=== PATIENT | male | born 1950 | race Caucasian/White ===

== ENCOUNTER → 2021-10-04 | Outpatient (CLI) | payer OTHER, MEDICARE | END | disposition home or self-care (01) | LOC: LABPAT 09:05 | PROVIDERS: ATTEND Orthopaedic Surgery | DX: Z01.812 Encounter for preprocedural laboratory examination (principal); Z22.322 Carrier or suspected carrier of Methicillin resistant Staphylococcus aureus; M16.11 Unilateral primary osteoarthritis, right hip | CPT/HCPCS: 87070 ==

== ENCOUNTER 2021-10-12 06:09 | Day surgery (SDC) | payer OTHER, MEDICARE ==
--- NOTE | 2021-10-11 09:19 | P.HPOR ---
History of Present Illness H&P Date: 10/11/21 Chief Complaint: Right hip pain The patient is a 71-year-old retired male who presents with progressive right hip pain for the past 5 years. It's worsened recently. He notes anterior thigh and groin pain worse with walking. He notes his leg gives out on him. He is having night symptoms. He does use a cane. He has tried medications without much relief. Review of Systems As per HPI Past Medical History Past Medical History: Cancer, COPD, Diabetes Mellitus, GERD/Reflux, Hyperlipidemia, Hypertension, Osteoarthritis (OA), Thyroid Disorder Additional Past Medical History / Comment(s): Hx. CLL per PCP clearance-not shared by pt. History of Any Multi-Drug Resistant Organisms: None Reported Past Surgical History: Hernia Repair Additional Past Surgical History / Comment(s): abd. aortic aneurysm repair 1999, inguinal hernia repair, nichelle cataracts removed, lung bx. Past Anesthesia/Blood Transfusion Reactions: No Reported Reaction Smoking Status: Former smoker - Past Family History Mother Family Medical History: No Reported History Medications and Allergies Home Medications Medication Instructions Recorded Confirmed Type Albuterol Inhaler [Ventolin Hfa 1 - 2 puff INHALATION RT-Q6H PRN 10/06/21 10/06/21 History Inhaler] Cholecalciferol [Vitamin D3 (25 25 mcg PO DAILY 10/06/21 10/06/21 History Mcg = 1000 Iu)] Ferrous Sulfate [Feosol] 325 mg PO DAILY 10/06/21 10/06/21 History Garlic 500 mg PO TID 10/06/21 10/06/21 History Levothyroxine Sodium [Synthroid] 25 mcg PO DAILY 10/06/21 10/06/21 History Pantoprazole [Protonix] 40 mg PO BID 10/06/21 10/06/21 History Pravastatin Sodium 80 mg PO DAILY 10/06/21 10/06/21 History Testosterone [Androderm 2 mg Patch] 1 patch TRANSDERM Q24H 10/06/21 10/06/21 History Ubidecarenone [Co Q-10] 100 mg PO DAILY 10/06/21 10/06/21 History amLODIPine [Norvasc] 5 mg PO HS 10/06/21 10/06/21 History lisinopriL [Zestril] 20 mg PO BID 10/06/21 10/06/21 History Aspirin 81 mg PO DAILY 10/07/21 10/07/21 History Insulin Glargine [Lantus Vial] 25 unit SQ QAM 10/07/21 10/08/21 History Allergies Allergy/AdvReac Type Severity Reaction Status Date / Time codeine AdvReac Nausea & Verified 10/06/21 15:29 Vomiting Physical Examination - Hip right Gait: antalgic Tenderness with palpation: anterior Pain with motion: internal rotation and hip flexion ROM: extension: 0 degrees ROM: flexion: 80 degrees Tests: impingement tests: positive Results The patient is a well-developed well-nourished male proximal 5 foot 5, 180 pounds. He is of mesomorphic habitus. HEENT exam is nonfocal, neck is supple. His distal neurovascular exam appears intact right lower extremity. - Diagnostic results Hip x-ray: image reviewed (Right hip 2 views obtained in the office show severe osteoarthrosis with [id number] changes. Vascular calcifications are present.) Assessment and Plan Assessment: Right hip severe osteoarthrosis Peripheral vascular disease Plan: I talked with patient regarding his condition along with treatment options. At this point is quite symptomatic and limited because of pain related to his osteoarthritis despite conservative measures. After thorough discussion he opts to proceed with surgery. We'll plan to proceed with right total hip arthroplasty utilizing a lateral approach. Risks and benefits are discussed at length in layman's terms. Time with Patient: Greater than 30
[~2021-10-12 06:09] MED LIST: ACETAMINOPHEN TAB 500 MG TAB PO PRN; DEXAMETHASONE SOD PHOSPHATE 4 MG/ML 1 ML VIAL IV ONE; MELOXICAM 7.5 MG TAB PO PRN; ONDANSETRON 4 MG/2 ML VIAL IVP ONE; TRANEXAMIC ACID IN NACL,ISO-OS 1,000 MG in SALINE 1 100ML.BAG IVPB PRN
[2021-10-12] MEDS: LACTATED RINGERS 1,000 ML IV SCH (06:34)
[2021-10-12] MEDS ORDERED: HYDROmorphone 0.5 MG/0.5 ML SYRINGE IVP PRN ×3 (07:00→09:19)
[2021-10-12 07:01] LABS: Glucose,Whole Blood 93 mg/dL (70-110)
[2021-10-12] MEDS ORDERED: MIDAZOLAM 2 MG/2 ML VIAL IVP ONE (07:11)
[2021-10-12] MEDS ORDERED: fentaNYL (PF) 50 MCG/ML 2 ML AMP IVP ONE (07:11)
[2021-10-12] MEDS ORDERED: TRANEXAMIC ACID IN NACL,ISO-OS 1,000 MG/100 ML BAG ONE (07:40)
[2021-10-12] MEDS ORDERED: fentaNYL (PF) 50 MCG/ML 2 ML AMP ONE (07:40)
[2021-10-12] MEDS ORDERED: PHENYLEPHRINE-0.9% NACL SYG 1,000 MCG/10 ML SYRINGE ONE (07:40)
[2021-10-12] MEDS ORDERED: ePHEDrine 50 MG/ML 1 ML VIAL ONE (07:40)
[2021-10-12] MEDS ORDERED: PROPOFOL 10 MG/ML 20 ML VIAL IV ONE (07:40)
[2021-10-12] MEDS ORDERED: MIDAZOLAM 2 MG/2 ML VIAL ONE (07:40)
[2021-10-12] MEDS ORDERED: HYDROcodone/APAP 5-325MG 1 EACH TAB PO PRN (09:19)
[2021-10-12] MEDS ORDERED: NALOXONE 0.4 MG/ML 1 ML VIAL IV PRN (09:19)
--- NOTE | 2021-10-12 09:21 | P.ANPRN ---
Procedure Note - Anesthesia - Nerve Block Performed Right Erector Spinae Single Time Out Performed: Yes (0710) Date of Procedure: 10/12/21 Procedure Start Time: 07:11 Procedure Stop Time: :16 Location of Patient: PreOp Indication: Acute Post-Operative Pain, Requested by Surgeon Specifically requested for management of pain by : Agusto Frausto Sedation Type: Sedate with meaningful contact maintained Preparation: Sterile Prep Position: Supine Catheter: None Needle Types: Pajunk Needle Gauge: 21 Ultrasound used to visualize needle placement: Yes Ultrasound used to observe medication spread: Yes Injectate: 0.5% Ropivacaine (see comment for volume) (30cc) Blood Aspirated: No Pain Paresthesia on Injection Noted: No Resistance on Injection: Normal Image Stored and Saved: Yes Events: Uneventful and Well Tolerated
--- NOTE | 2021-10-12 09:35 | P.OP ---
Date of Procedure: 10/12/21 Preoperative Diagnosis: Right hip severe osteoarthrosis Postoperative Diagnosis: Same Procedure(s) Performed: Right total hip path Placidepress-fitlateral approach Implants: Depuy [place] size 11 collared 125/high offset press-fit femoral stem, 36+5 cobalt chrome femoral head, 54 mm [place] acetabular shell with neutral polyethylene liner. Anesthesia: spinal Surgeon: Agusto Frausto Roof Technician #1: Sergio Keys Estimated Blood Loss (ml): 150 Pathology: other (Femoral head) Condition: stable Disposition: PACU Indications for Procedure: The patient's a 71-year-old male who presents with progressive right hip pain secondary to osteoarthrosis despite conservative measures. A discussion of the risks and benefits of operative intervention versus continued conservative measures was made with patient. He opted to proceed with surgery. Operative risks to include infection, neurovascular injury, development of blood clots, possible ligamentous, possible fracture, possible instability need for subsequent procedures was discussed. Informed consent was obtained. Operative Findings: As below Description of Procedure: The patient was brought to the operating room, and after induction of spinal anesthesia was placed in a lateral decubitus position. The bony prominences were appropriately padded. The pelvis was stable perpendicular to the floor with a pegboard. The right lower extremity was prepped and draped in normal fashion. A 12 cm incision was then made centered over the greater trochanter extending superiorly to level the ASIS and distally in line with the femoral shaft. The skin and subcutaneous tissues were divided sharply. Electrocautery was used for hemostasis. The fascia qasim and gluteus michael fascia was split in line with the skin incision. The muscle fibers were bluntly dissected proximally. A self-retaining retractor was placed. The anterior and posterior margins of the gluteus medius muscles identified and the anterior two thirds was detached from the greater trochanter with electrocautery. The gluteus minimus tendon was identified and detached in a similar fashion. A wide capsulotomy was performed. The femoral neck fracture was identified in the lower neck cut was made approximately 1 1/2 cm above the level of the lesser trochanter with a sagittal saw at a 45 the shaft. The head was then extracted with a corkscrew. Attention was then paid towards preparing the acetabular. Anterior and posterior retractors were placed. The remaining capsular labral tissues debrided sharply clearly defining the acetabular margins. I began reaming with a 47 mm reamer taking care to initially medialize, then reaming at 45 of abduction and 20 of anteversion. Sequential reaming is performed up to 53 mm. This was down to bleeding bony surface. A trial 54 mm acetabular shell was inserted at 45 of abduction and 20 of anteversion. This was fully seated. There was good rim fit and stability. A neutral polyethylene liner was then impacted. Care taken to avoid any soft tissue interposition. Attention was then paid towards preparing the proximal femur. A box chisel was used to open the metaphyseal region. A canal finder was used to find the femoral canal. Sequential broaching was performed up to a size 11. This is placed in 15 of anteversion with the leg perpendicular floor judging off the trans-epicondylar axis. There is good rotational stability. A calcar mill was used to fashion the medial calcar. A trial 125 high offset neck along with a 36 mm + 5 trial head was placed. The hip was gently reduced. It was taken through range of motion. I felt to be stable in flexion and extension with internal and external rotation. I felt there was adequate quaker of soft tissue tension. The hip was gently dislocated. The trial components removed. Pulsatile lavage was utilized. The final size 11 high offset 125 collared femoral stem was inserted again with the leg perpendicular to the floor in 15 of anteversion. Again there was good rotational stability. A 36 mm + 5 cobalt chrome femoral head was gently impacted. The hip was gently reduced. Again it was taken through motion and felt to be stable in flexion and extension with internal and external rotation. Pulsatile lavage was again utilized. With the leg in abduction the gluteus minimus and medius tendons reattached to the greater trochanter with #2 Ethibond suture. There was minimal drainage therefore a deep drain was not placed. The fascia qasim and gluteus michael fascia was closed with #2 Ethibond suture. The subcutaneous tissues were reapproximated interrupted 2-0 Vicryl sutures. The skin was reapproximated with 3-0 subcuticular strata fix suture. Skin tape and adhesive was applied. A sterile dressing was applied. The patient was awoken from sedation and transferred to recovery room in good condition. Blood loss was estimated 150 mL. No complications were incurred. Sponge and needle counts were correct in the case. Sergio FLORES assisted during the major composes case to include exposure, implantation, and closure.
[2021-10-12 09:47] LABS: Glucose,Whole Blood 114 mg/dL (70-110)
--- NOTE | 2021-10-12 09:57 | XR ---
EXAMINATION TYPE: XR Hip Limited RT DATE OF EXAM: 10/12/2021 9:51 AM INDICATION: Patient age:Male; 71 years old; Reason for study: Status post hip surgery, assess surgical alignment; COMPARISON: Pelvis radiograph 08/23/2021 TECHNIQUE: The right hip was examined in the frontal view. FINDINGS: Post arthroplasty changes, hardware is intact, alignment is appropriate. No evidence of fra cture. Postoperative changes soft tissue. No evidence of any acute osseous pathology or joint disloca tion. Atherosclerosis of the vasculature. Hernia repair anchors noted in the left pelvis over the sup erior pubic ramus. IMPRESSION: Total hip arthroplasty with hardware intact and in appropriate alignment. No acute fracture.
[2021-10-12] MEDS: HYDROcodone/APAP 7.5-325MG 1 EACH TAB PO PRN ×3 (14:11→23:07)
[2021-10-12] MEDS ORDERED: ALBUTEROL NEBULIZED 2.5 MG/3 ML INHALATION PRN (14:27)
[2021-10-12] MEDS: TESTOSTERONE TRANSDERM SCH (15:46)
--- NOTE | 2021-10-12 16:12 | P.CONS ---
History of Present Illness - Reason for Consult Consult date: 10/12/21 Medical Management - History of Present Illness History of Presenting Illness: Patient is a very pleasant 71-year-old male with a past medical history of hypertension, hyperlipidemia, hypothyroidism, insulin-dependent diabetes mellitus and osteoarthrosis. Patient is status post right total hip arthroplasty secondary to severe right hip osteoarthrosis. Surgical procedure completed by Dr. Morrison. We have been consulted for medical management throughout hospitalization. Patient seen and fully evaluated. Patient sitting up in chair and reports that he has been ambulating in room with walker. Patient reports controlled postsurgical pain to right hip currently rating 4 out of 10 at this time and denies having any numbness, decreased sensation, or weakness in right lower extremity. Patient denies having any postoperative nausea or vomiting and reports he has been urinating without any difficulties. Patient denies having any history of CVA, DVT or PE. Patient denies having any current complaints including headache, lightheadedness, dizziness, chest pain, palpitations, shortness of breath, or experiencing any numbness/tingling/weakness in his extremities. Review of systems: Pertinent positives and negatives as discussed in HPI, a complete review of systems was performed and all other systems are negative. Physical exam: Vital signs reviewed and stable. General: Nontoxic, no distress and appears stated age. Derm: Skin warm and dry, normal coloration for ethnicity. Head: Atraumatic, normocephalic and symmetric. Eyes: EOMs intact, no lid lag, and anicteric sclera Mouth: no lip lesions, mucus membranes moist Cardiovascular: regular rate and rhythm with normal S1S2, no murmur, positive posterior tibial pulses bilaterally, and cap refill < 2 seconds. Lungs: Respirations even, regular, and unlabored on room air. Lungs CTA bilaterally, no rhonchi, no rales, no wheezing, and no accessory muscle usage. Abdominal: soft, nontender to palpation, no guarding, no appreciable organomegaly Ext: ROM intact. No gross muscle atrophy, no edema, no contractures Neuro: Speech clear, face symmetrical and CN II-XII grossly intact with no noted focal neuro deficits Psych: Alert and oriented to person, place, time, and situation. Appropriate and pleasant affect. Assessment and Plan of Care: Severe right hip osteoarthrosis Status post right total hip arthroplasty -Management per primary admitting orthopedic surgery team including DVT prophylaxis, pain management, wound care, weightbearing, and PT/OT. -Currently patient on DVT prophylaxis with Xarelto. -Encourage use of incentive spirometry 10-15 times hourly while awake. Hypertension -Monitor vital signs and continue daily medication regimen with lisinopril and amlodipine. Insulin dependent diabetes mellitus -Continue long-acting Lantus 25 units each morning and place patient on glycemic protocol with NovoLog sliding scale. Hypothyroidism -Continue daily medication regimen with levothyroxine 25 g each morning. Hyperlipidemia -Continue daily medication regimen with pravastatin. Thank you for allowing us to participate in the care of this pleasant patient. Do not hesitate to contact us with questions. Someone can be reached from the [facility] hospitalist group all hours of the day at [phone] or via [employer]. I reviewed the documentation as provided by the CURT above, who is the original author of this note. I agree with the documented assessment and plan, with the following changes: none Past Medical History Past Medical History: Cancer, COPD, Diabetes Mellitus, GERD/Reflux, Hyperlipidemia, Hypertension, Osteoarthritis (OA), Thyroid Disorder Additional Past Medical History / Comment(s): Hx. CLL per PCP clearance-not shared by pt. History of Any Multi-Drug Resistant Organisms: None Reported Past Surgical History: Hernia Repair Additional Past Surgical History / Comment(s): abd. aortic aneurysm repair 1999, inguinal hernia repair, nichelle cataracts removed, lung bx. Past Anesthesia/Blood Transfusion Reactions: No Reported Reaction Past Psychological History: Depression Smoking Status: Former smoker Past Alcohol Use History: None Reported Additional Past Alcohol Use History / Comment(s): quit smoking 30 yrs. ago, 2ppd Past Drug Use History: None Reported - Past Family History Mother Family Medical History: No Reported History Medications and Allergies Home Medications Medication Instructions Recorded Confirmed Type Albuterol Inhaler [Ventolin Hfa 1 - 2 puff INHALATION RT-Q6H PRN 10/06/21 10/06/21 History Inhaler] Cholecalciferol [Vitamin D3 (25 25 mcg PO DAILY 10/06/21 10/12/21 History Mcg = 1000 Iu)] Ferrous Sulfate [Feosol] 325 mg PO DAILY 10/06/21 10/12/21 History Garlic 500 mg PO TID 10/06/21 10/06/21 History Levothyroxine Sodium [Synthroid] 25 mcg PO DAILY 10/06/21 10/12/21 History Pantoprazole [Protonix] 40 mg PO BID 10/06/21 10/12/21 History Pravastatin Sodium 80 mg PO DAILY 10/06/21 10/12/21 History Testosterone [Androderm 2 mg Patch] 1 patch TRANSDERM Q24H 10/06/21 10/12/21 History Ubidecarenone [Co Q-10] 100 mg PO DAILY 10/06/21 10/06/21 History amLODIPine [Norvasc] 5 mg PO HS 10/06/21 10/12/21 History lisinopriL [Zestril] 20 mg PO BID 10/06/21 10/12/21 History Aspirin 81 mg PO DAILY 10/07/21 10/07/21 History Insulin Glargine [Lantus Vial] 25 unit SQ QAM 10/07/21 10/12/21 History Allergies Allergy/AdvReac Type Severity Reaction Status Date / Time codeine AdvReac Nausea & Verified 10/12/21 06:42 Vomiting Physical Exam Osteopathic Statement: *. No significant issues noted on an osteopathic structural exam other than those noted in the History and Physical/Consult. Vitals: Vital Signs Temp Pulse Pulse Resp BP BP Pulse Ox 10/12/21 14:00 97.4 F L 91 18 167/74 96 10/12/21 12:00 75 17 131/86 99 10/12/21 11:30 66 16 135/60 96 10/12/21 11:05 62 16 124/62 99 10/12/21 10:46 63 16 122/62 99 10/12/21 10:32 66 16 122/70 98 10/12/21 10:15 64 16 115/68 99 10/12/21 10:01 64 16 112/63 99 10/12/21 09:46 63 16 112/59 98 10/12/21 09:30 97.0 F L 66 15 116/56 99 10/12/21 07:18 56 L 15 105/59 96 10/12/21 06:42 96.6 F L 58 L 16 156/72 96 Intake and Output 10/12/21 10/12/21 10/12/21 06:59 14:59 22:59 Intake Total 300 550 Output Total 150 Balance 300 400 Intake: IV 300 550 Output: Estimated Blood Loss 150 Other: Weight 79 kg 79 kg Results Labs: Abnormal Lab Results - Last 24 Hours (Table) 10/12/21 Range/Units 09:45 POC Glucose (mg/dL) 114 H (70-110) mg/dL
[2021-10-12 16:34] LABS: Glucose,Whole Blood 215 mg/dL (70-110)
[2021-10-12] MEDS: INSULIN ASPART (NovoLOG) 100 UNIT/ML VIAL SQ SCH (17:20)
[2021-10-12] MEDS: PANTOPRAZOLE 40 MG TABLET PO SCH (17:20)
[2021-10-12 20:28] LABS: Glucose,Whole Blood 144 mg/dL (70-110)
[2021-10-12] MEDS ORDERED: SENNOSIDES-DOCUSATE SODIUM 1 EACH TAB PO SCH (21:00)
[2021-10-12] MEDS ORDERED: amLODIPine 5 MG TAB PO SCH (21:00)
[2021-10-12] MEDS: lisinopriL 20 MG TAB PO SCH (21:54)
[2021-10-13] MEDS: LACTATED RINGERS 1,000 ML IV SCH (06:28)
[2021-10-13] MEDS ORDERED: LEVOTHYROXINE 25 MCG TAB PO SCH (06:30)
[2021-10-13] MEDS ORDERED: INSULIN DETEMIR (LEVEMIR) 100 UNIT/ML SYR SQ SCH (07:00)
[2021-10-13 07:30] LABS: Glucose,Whole Blood 135 mg/dL (70-110)
[2021-10-13] MEDS: INSULIN ASPART (NovoLOG) 100 UNIT/ML VIAL SQ SCH ×2 (07:46→11:18)
[2021-10-13] MEDS: lisinopriL 20 MG TAB PO SCH (07:56)
[2021-10-13] MEDS: PANTOPRAZOLE 40 MG TABLET PO SCH (07:56)
[2021-10-13] MEDS: HYDROcodone/APAP 7.5-325MG 1 EACH TAB PO PRN ×2 (07:58→16:32)
[2021-10-13] MEDS ORDERED: ASPIRIN 81 MG PO SCH (09:00)
[2021-10-13] MEDS ORDERED: FERROUS SULFATE 325 MG TAB PO SCH (09:00)
[2021-10-13] MEDS ORDERED: CHOLECALCIFEROL 25 MCG (1000 IU) TABLET PO SCH (09:00)
[2021-10-13] MEDS ORDERED: PRAVASTATIN SODIUM 80 MG TAB PO SCH (09:00)
[2021-10-13] MEDS ORDERED: RIVAROXABAN 10 MG TAB PO SCH (09:00)
[2021-10-13] MEDS ORDERED: NON FORMULARY DRUG (Ubidecarenone [Co Q-10] 300 MG Capsule) PO SCH (09:00)
[2021-10-13 09:18] LABS: African American GFR (CKD) 104.2 (60.0-200.0); Albumin 4.1 g/dL (3.8-4.9); Albumin/Globulin Ratio 2.28 (1.60-3.17); Anion Gap 8.9 mmol/L (10.00-18.00); BUN/Creat Ratio 22.38 Ratio (12.00-20.00); Blood Urea Nitrogen 17.9 mg/dL (9.0-27.0); Calcium 8.9 mg/dL (8.7-10.3); Carbon Dioxide 26.1 mmol/L (20.0-27.5); Globulin 1.8 g/dL (1.6-3.3); Magnesium 2.3 mg/dL (1.5-2.4); Non-African American GFR(CKD) 89.9 (60.0-200.0); Potassium 4.5 mmol/L (3.5-5.5); Total Bilirubin 0.5 mg/dL (0.30-1.20); Total Protein 5.9 g/dL (6.2-8.2)
[2021-10-13 09:25] LABS: HCT 36.8 % (39.6-50.0); MCH 28.5 pg (27.0-32.0); MCHC 32.6 g/dL (32.0-37.0); MCV 87.4 fL (80.0-97.0); Mean Platelet Volume 12.6 fL (9.5-12.2); NRBC Per 100 WBC 0 /100 WBCS (0.0-0.0); Platelet Count 130 X 10*3/uL (140-440); RBC 4.21 X 10*6/uL (4.40-5.60); RDW 14.4 % (11.5-14.5)
[2021-10-13 11:00] LABS: Glucose,Whole Blood 110 mg/dL (70-110)
--- NOTE | 2021-10-13 12:27 | P.PN ---
Subjective Progress Note Date: 10/13/21 Principal diagnosis: Right hip osteoarthritis Patient was seen at bedside's morning sitting up in chair dressed and ready to go home. Patient's was at bedside throughout the encounter. She says he has walked up-and-down the hallway multiple times. Patient says his hip is doing well. Patient's does not feel that she will be able to help take care of him at home for these first few days after surgery. Patient's is wanting for patient to go to rehab for short-term. Patient denies chest pain, fever, shortness breath, nausea, vomiting, change in vision, loss/bladder control. Objective - Vital Signs Vital signs: Vital Signs Temp 98.0 F 10/13/21 07:40 Pulse 62 10/13/21 07:40 Resp 18 10/13/21 07:40 BP 111/66 10/13/21 07:40 Pulse Ox 93 L 10/13/21 07:40 FiO2 Intake & Output 10/12/21 10/13/21 10/13/21 18:59 06:59 18:59 Intake Total 550 Output Total 150 Balance 400 Weight 79 kg Intake: IV 550 Output: Estimated Blood Loss 150 Other: Voiding Method Toilet Toilet # Voids 2 3 - Exam Right hip: Incision is clean, dry, and intact. The exofin fusion tape is in good condition. There is minimal soft tissue swelling and ecchymosis surrounding the medial and lateral aspects of the incision. Calf is soft, no tenderness with palpation. Plantar flexion, dorsiflexion, EHL, FHL are intact. Sensory exam to light touch throughout the extremity is intact, dorsal pedis pulses 2+. - Labs CBC & Chem 7: 10/13/21 06:14 10/13/21 06:14 Labs: Abnormal Lab Results - Last 24 Hours (Table) 10/12/21 10/12/21 10/13/21 Range/Units 16:32 20:27 06:14 WBC (4.50-10.00) X 10*3/uL RBC (4.40-5.60) X 10*6/uL Hgb (13.0-17.0) g/dL Hct (39.6-50.0) % Plt Count (140-440) X 10*3/uL MPV (9.5-12.2) fL Anion Gap 8.90 L (10.00-18.00) mmol/L BUN/Creatinine Ratio 22.38 H (12.00-20.00) Ratio Glucose 134 H (70-110) mg/dL POC Glucose (mg/dL) 215 H 144 H (70-110) mg/dL Total Protein 5.9 L (6.2-8.2) g/dL 10/13/21 10/13/21 Range/Units 06:14 07:28 WBC 14.50 H (4.50-10.00) X 10*3/uL RBC 4.21 L (4.40-5.60) X 10*6/uL Hgb 12.0 L (13.0-17.0) g/dL Hct 36.8 L (39.6-50.0) % Plt Count 130 L (140-440) X 10*3/uL MPV 12.6 H (9.5-12.2) fL Anion Gap (10.00-18.00) mmol/L BUN/Creatinine Ratio (12.00-20.00) Ratio Glucose (70-110) mg/dL POC Glucose (mg/dL) 135 H (70-110) mg/dL Total Protein (6.2-8.2) g/dL Assessment and Plan Assessment: 1. Right hip osteoarthritis postop day #1 status post right total hip arthroplasty Plan: 1. Right hip osteoarthritis - right total hip arthroplasty performed yesterday, 10/12/2021. Patient stable at bedside this morning. Patient did do well with physical therapy. Unable to accept at rehab due to independence. Discharge home today with health services. 2. Appreciate medical management 3. DVT prophylaxis - Xarelto 4. GI prophylaxis - senna 5. Pain management - [place] 6. PT/OT - weightbearing as tolerated with walker 7. Encourage incentive spirometer use 8. Discharge planning - home today with health service Time with Patient: Less than 30
--- NOTE | 2021-10-13 12:27 | P.DS ---
Providers Date of admission: 10/12/2021 Expected date of discharge: 10/13/21 Attending physician: Agusto Frausto Consults: 10/12/21 09:19 Consult Physician Routine Consulting Provider: Sherry Velarde Consult Reason/Comments: s/p right total hip arthroplasty Do you want consulting provider notified?: Yes Primary care physician: [facility] Hospital Course: Date of admission: 10/12/2021 Date of discharge: 10/13/2021 Admission diagnosis: Right hip osteoarthritis Discharge diagnosis: Same Attending physician: Dr. Frausto Surgical procedures: Right total hip arthroplasty Brief history: Patient is a 71-year-old male with a history of progressive primary right hip osteoarthritis. At this point patient has failed conservative treatment measures and has opted to proceed with a elective total hip arthroplasty. Hospital course: Details of patient's surgery can be found in operative report. Patient tolerated the procedure well and was subsequently transported to orthopedic floor. Patient's orthopeidc and medical care was provided daily. Patient had daily laboratory tests performed for evaluation of overall blood counts. Patient had daily physical therapy to include strengthening range of motion as well as education with walker ambulation. Patient was treated with Xarelto for their postoperative DVT prophylaxis during their inpatient stay. Patient was noted to have a relatively uneventful postoperative course. Patient reported satisfactory pain control with oral pain medications by postoperative day 1. Patient showed satisfactory progress with physical therapy. Patient moved steadily through the program and had no difficulty meeting the goals by postoperative day 1. Given patient's otherwise satisfactory course and having met physical therapy goals, plan is to discharge patient home with health services on postoperative day 1. Discharge condition/disposition: Patient will be discharged home with health services in stable condition. Discharge medications: Instructions are given on resumption of patient's normal daily medications per primary care recommendation, in addition patient will be prescribed [place]; Colace; Eliquis 2.5 mg BID x 2 weeks. Discharge instructions: 1. Wound care and infection precautions, keep incision dry and covered while showering, no lotions, creams, moisturizers. No soaking, tubs, pools, hottubs. Do not scrub over the incision. 2. Weight-bear as tolerated with walker / cane until follow-up. 3. Ice and elevate when necessary. Do not exceed 20 minutes per hour with ice pack. 4. Utilize compression sleeve until seen at first follow up appointment. 5. Visiting nursing care. 6. Home physical therapy 7. Pain meds and anticoagulants per prescription. 8. Pain medication has potential to cause constipation. Increase oral fluid and fiber intake. Contact primary care provider if you have not had a bowel movement within 48 hours after discharge 9. No anti-inflammatory medication until discussed at first post operative visit, this including Motrin, Aleve, Mobic, Diclofenac, Aspirin. 10. Follow up in office at 2 weeks postop with Maco Balderas PA-C / Sergio Keys PA-C 11. Follow up with your primary care doctor 7-10 days after discharge. 12. Contact [facility] with any questions, . Assessment: Right hip osteoarthritis Procedures: Right total hip arthroplasty Patient Condition at Discharge: Good Plan - Discharge Summary Discharge Rx Participant: No New Discharge Prescriptions: New Docusate [Colace] 100 mg PO DAILY #30 capsule Apixaban [Eliquis] 2.5 mg PO BID #60 tab HYDROcodone/APAP 7.5-325MG [[place] 7.5] 1 each PO Q6HR PRN #32 tab PRN Reason: Pain No Action Pravastatin Sodium 80 mg PO DAILY lisinopriL [Zestril] 20 mg PO BID Pantoprazole [Protonix] 40 mg PO BID Levothyroxine Sodium [Synthroid] 25 mcg PO DAILY Ubidecarenone [Co Q-10] 100 mg PO DAILY amLODIPine [Norvasc] 5 mg PO HS Testosterone [Androderm 2 mg Patch] 1 patch TRANSDERM Q24H Garlic 500 mg PO TID Ferrous Sulfate [Feosol] 325 mg PO DAILY Cholecalciferol [Vitamin D3 (25 Mcg = 1000 Iu)] 25 mcg PO DAILY Albuterol Inhaler [Ventolin Hfa Inhaler] 1 - 2 puff INHALATION RT-Q6H PRN PRN Reason: Shortness Of Breath Aspirin 81 mg PO DAILY Insulin Glargine [Lantus Vial] 25 unit SQ QAM Discharge Medication List Albuterol Inhaler [Ventolin Hfa Inhaler] 1 - 2 puff INHALATION RT-Q6H PRN 10/06/21 [History] Cholecalciferol [Vitamin D3 (25 Mcg = 1000 Iu)] 25 mcg PO DAILY 10/06/21 [History] Ferrous Sulfate [Feosol] 325 mg PO DAILY 10/06/21 [History] Garlic 500 mg PO TID 10/06/21 [History] Levothyroxine Sodium [Synthroid] 25 mcg PO DAILY 10/06/21 [History] Pantoprazole [Protonix] 40 mg PO BID 10/06/21 [History] Pravastatin Sodium 80 mg PO DAILY 10/06/21 [History] Testosterone [Androderm 2 mg Patch] 1 patch TRANSDERM Q24H 10/06/21 [History] Ubidecarenone [Co Q-10] 100 mg PO DAILY 10/06/21 [History] amLODIPine [Norvasc] 5 mg PO HS 10/06/21 [History] lisinopriL [Zestril] 20 mg PO BID 10/06/21 [History] Aspirin 81 mg PO DAILY 10/07/21 [History] Insulin Glargine [Lantus Vial] 25 unit SQ QAM 10/07/21 [History] Apixaban [Eliquis] 2.5 mg PO BID #60 tab 10/13/21 [Rx] Docusate [Colace] 100 mg PO DAILY #30 capsule 10/13/21 [Rx] HYDROcodone/APAP 7.5-325MG [[place] 7.5] 1 each PO Q6HR PRN #32 tab 10/13/21 [Rx] Follow up Appointment(s)/Referral(s): Sergio Keys PAC [PHYSICIAN SENIOR SALES DIRECTOR] - 2 Weeks [facility] [NON-STAFF] - 1-2 Days Patient Instructions/Handouts: Total Hip Replacement (DC) Activity/Diet/Wound Care/Special Instructions: Orthopedic Discharge Instructions: 1. Wound care and infection precautions, keep incision dry and covered while showering, no lotions, creams, moisturizers. No soaking, pools, hot tubs. Do not scrub over incision. 2. Weight-bear as tolerated with walker / cane until follow-up. 3. Ice and elevate when necessary. Do not exceed 20 minutes per hour with ice pack. 4. Utilize compression sleeve until seen at first follow up appointment. 5. Pain meds and anticoagulants per prescription. 6. Pain medication has potential to cause constipation. Increase oral fluid and fiber intake. Contact primary care provider if you have not had a bowel movement within 48 hours after discharge. 7. No anti-inflammatory medication until discussed at first post operative visit, this including Motrin, Aleve, Mobic, Diclofenac. 8. Follow up in office at 2 weeks postop with Maco Balderas PA-C / Sergio Keys PA-C 9. Follow up with your primary care doctor 7-10 days after discharge. 10. Contact [facility] with any questions, . Keep dressing on until follow-up appointment in office in 2 weeks. While showering, cover dressing with Saran wrap. Keep incision clean, dry, intact Meds: [place] 7.5 mg/325mg; Colace; Eliquis 2.5 mg BID x 2 weeks Discharge Disposition: HOME WITH HOME HEALTH SERVICES
[2021-10-13 13:17] LABS: Basophils # (M) 0 X 10*3/uL (0.00-0.10); Eosinophils # (M) 0 X 10*3/uL (0.04-0.35); Lymphocytes # (M) 8.12 X 10*3/uL (0.90-5.00); Neutrophils # (M) 4.79 X 10*3/uL (2.00-8.90); Neutrophils % (M) 33 %; RBC Morphology NORMAL; Smudge Cells PRESENT
[2021-10-13] MEDS: TESTOSTERONE TRANSDERM SCH (14:34)
[2021-10-13 14:39] VITALS: BP 125/63; PULSE 67; RESP 15; TEMP 98.2
--- NOTE | 2021-10-13 15:56 | P.PN ---
Subjective Progress Note Date: 10/13/21 History of Presenting Illness: Patient is a very pleasant 71-year-old male with a past medical history of hypertension, hyperlipidemia, hypothyroidism, insulin-dependent diabetes mellit us and osteoarthrosis. Patient is status post right total hip arthroplasty secondary to severe right hip osteoarthrosis. Surgical procedure completed by Dr. Morrison. We have been consulted for medical management throughout hospitalization. Physical exam: Patient seen and fully evaluated at bedside this morning. Patient sitting up in chair and reports feeling great this morning. Patient reports continued discomfort in right hip with ambulation but has been ambulating in room and in the [place]ano with walker. Morning labs reviewed showing mild leukocytosis with WBC count of 14.50, normocytic anemia with hemoglobin of 12.0, and thrombocytopenia with platelet count of 130. CMP showing no significant abnormalities. Vital signs unremarkable with blood pressure 111/66, heart rate 62, and SpO2 of 93% on room air. Patient denies having any complaints or needs at this time. Patient's at bedside. Patient is medically stable for discharge once cleared by orthopedic surgery team. Vital signs reviewed and stable. General: Nontoxic, no distress and appears stated age. Derm: Skin warm and dry, normal coloration for ethnicity. Head: Atraumatic, normocephalic and symmetric. Eyes: EOMs intact, no lid lag, and anicteric sclera Mouth: no lip lesions, mucus membranes moist Cardiovascular: regular rate and rhythm with normal S1S2, no murmur, positive posterior tibial pulses bilaterally, and cap refill < 2 seconds. Lungs: Respirations even, regular, and unlabored on room air. Lungs CTA bilaterally, no rhonchi, no rales, no wheezing, and no accessory muscle usage. Abdominal: soft, nontender to palpation, no guarding, no appreciable organomegaly Ext: ROM intact. No gross muscle atrophy, no edema, no contractures Neuro: Speech clear, face symmetrical and CN II-XII grossly intact with no noted focal neuro deficits Psych: Alert and oriented to person, place, time, and situation. Appropriate and pleasant affect. Assessment and Plan of Care: Severe right hip osteoarthrosis Status post right total hip arthroplasty -Management per primary admitting orthopedic surgery team including DVT prophylaxis, pain management, wound care, weightbearing, and PT/OT. -Currently patient on DVT prophylaxis with Xarelto. -Encourage use of incentive spirometry 10-15 times hourly while awake. Hypertension -Monitor vital signs and continue daily medication regimen with lisinopril and amlodipine. Insulin dependent diabetes mellitus -Continue long-acting Lantus 25 units each morning and place patient on glycemic protocol with NovoLog sliding scale. Hypothyroidism -Continue daily medication regimen with levothyroxine 25 g each morning. Hyperlipidemia -Continue daily medication regimen with pravastatin. Thank you for allowing us to participate in the care of this pleasant patient. Do not hesitate to contact us with questions. Someone can be reached from the [facility] [place] [facility] [place] all hours of the day at [phone] or via [employer]. I reviewed the documentation as provided by the CURT above, who is the original author of this note. I agree with the documented assessment and plan, with the following changes: none Objective - Vital Signs Vital signs: Vital Signs Temp 98.0 F 10/13/21 07:40 Pulse 62 10/13/21 07:40 Resp 18 10/13/21 07:40 BP 111/66 10/13/21 07:40 Pulse Ox 93 L 10/13/21 07:40 FiO2 Intake & Output 10/12/21 10/13/21 10/13/21 18:59 06:59 18:59 Intake Total 550 Output Total 150 Balance 400 Weight 79 kg Intake: IV 550 Output: Estimated Blood Loss 150 Other: Voiding Method Toilet # Voids 2 3 - Labs CBC & Chem 7: 10/13/21 06:14 10/13/21 06:14 Labs: Abnormal Lab Results - Last 24 Hours (Table) 10/12/21 10/12/21 10/12/21 Range/Units 09:45 16:32 20:27 POC Glucose (mg/dL) 114 H 215 H 144 H (70-110) mg/dL 10/13/21 Range/Units 07:28 POC Glucose (mg/dL) 135 H (70-110) mg/dL
== END 2021-10-13 17:01 | disposition home health service (06) ==
LOC: OR 06:09 → 4SSUR 09:12 → OR 10-13 17:01
PROVIDERS: ATTEND Orthopaedic Surgery
DX: M16.11 Unilateral primary osteoarthritis, right hip (principal); J44.9 Chronic obstructive pulmonary disease, unspecified; K21.9 Gastro-esophageal reflux disease without esophagitis; E78.5 Hyperlipidemia, unspecified; I10 Essential (primary) hypertension; E11.51 Type 2 diabetes mellitus with diabetic peripheral angiopathy without gangrene; E03.9 Hypothyroidism, unspecified; Z85.6 Personal history of leukemia; Z98.42 Cataract extraction status, left eye; Z98.41 Cataract extraction status, right eye; Z98.890 Other specified postprocedural states; Z87.891 Personal history of nicotine dependence; Z83.3 Family history of diabetes mellitus; Z82.49 Family history of ischemic heart disease and other diseases of the circulatory system; Z80.0 Family history of malignant neoplasm of digestive organs; Z79.82 Long term (current) use of aspirin; Z79.890 Hormone replacement therapy; Z79.899 Other long term (current) drug therapy; Z88.5 Allergy status to narcotic agent
CPT/HCPCS: 97161; 97535; 97165; 64999; 86900; 86901; 80053; 83735; 85025; 86850; 88300; 73501; 27130; C1776; J2250; J1100; J0690; J2405; J3010; J1170

== ENCOUNTER 2023-06-19 11:58 | Emergency (ER) | payer MEDICARE, OTHER ==
[2023-06-19 12:10] VITALS: RESP 20
[2023-06-19 13:49] LABS: ALT 98 U/L (4-49); AST 59 U/L (17-59); African American GFR (CKD) >90 (>60 ml/min/1.73 sqM); Albumin 3.9 g/dL (3.5-5.0); Alkaline Phosphatase 280 U/L (38-126); Anion Gap 12 mmol/L; Bilirubin, Conjugated 4.9 mg/dL (0.0-0.3); Bilirubin, Delta 2.9 mg/dL (0.0-0.2); Bilirubin,Unconjugated 1.5 mg/dL (0.0-1.1); Blood Urea Nitrogen 18 mg/dL (9-20); Calcium 9.4 mg/dL (8.4-10.2); Carbon Dioxide 15 mmol/L (22-30); Chloride 109 mmol/L (98-107); Glucose 143 mg/dL (74-99); Lipase 327 U/L (23-300); Non-African American GFR(CKD) >90 (>60 ml/min/1.73 sqM); Potassium 4.4 mmol/L (3.5-5.1); Sodium 136 mmol/L (137-145); Total Bilirubin 9.3 mg/dL (0.2-1.3); Total Protein 6.8 g/dL (6.3-8.2)
[2023-06-19 13:55] LABS: Basophils # (A) 0.1 k/uL (0-0.2); Basophils % (A) 1 %; Eosinophils % (A) 1 %; HCT 41.6 % (39.0-53.0); HGB 13.6 gm/dL (13.0-17.5); Lymphocytes # (A) 4.4 k/uL (1.0-4.8); Lymphocytes % (A) 47 %; MCH 29.7 pg (25.0-35.0); MCHC 32.8 g/dL (31.0-37.0); MCV 90.5 fL (80.0-100.0); Mean Platelet Volume 13.6; Monocytes # (A) 0.6 k/uL (0-1.0); Monocytes % (A) 6 %; Neutrophils # (A) 3.9 k/uL (1.3-7.7); Neutrophils % (A) 42 %; RDW 15.9 % (11.5-15.5); WBC 9.3 k/uL (3.8-10.6)
[2023-06-19 14:32] LABS: Large Platelets Present
[2023-06-19 14:33] LABS: Platelet Count 159 k/uL (150-450)
[2023-06-19] MEDS: diphenhydrAMINE 50 MG CAP PO STA ×2 (14:50→14:53)
--- NOTE | 2023-06-19 15:07 | CT ---
EXAMINATION TYPE: CT abdomen pelvis w con CT DLP: 1015 mGycm, Automated exposure control for dose reduction was used. DATE OF EXAM: 06/19/2023 2:44 PM COMPARISON: None. CLINICAL INDICATION:Male, 73 years old with history of abdominal pain, jaundice; abdominal pain, ciro dice TECHNIQUE: Axial CT abdomen pelvis w con;Sagittal and coronal reformats were created on a separate w orkstation. Contrast used:100ml mL of Isovue 300 with IV Contrast, (none if empty) Oral contrast used: without Oral Contrast (none if empty) FINDINGS: LOWER CHEST: Emphysema. No acute process. ABDOMEN LIVER: Small, spanning 14.0 cm, with undulating margin suggesting possible cirrhosis GALLBLADDER AND BILE DUCTS: Very distended. Dilated extrahepatic and intrahepatic biliary ducts PANCREAS: Unremarkable. SPLEEN: Unremarkable. ADRENAL GLANDS: Unremarkable. KIDNEYS AND URETERS: No evidence of hydronephrosis or renal calculus. The ureters are unremarkable. PELVIS BLADDER: Unremarkable REPRODUCTIVE: Unremarkable. ABDOMEN & PELVIS STOMACH AND BOWEL: Normal caliber and appearance. No evidence of bowel obstruction. PERITONEUM/RETROPERITONEUM: No evidence of pneumoperitoneum or free fluid. VASCULATURE: No evidence of aortic aneurysm. MUSCULOSKELETAL: No acute osseous abnormalities LYMPH NODES: No gross evidence for lymphadenopathy. SOFT TISSUE/ABDOMINAL WALL: Unremarkable IMPRESSION: 1. Dilated intrahepatic and extrahepatic biliary tree and the gallbladder. Consider biliary obstruct ion. Ultrasound right upper quadrant follow-up recommended. 2. Findings raise possibility of early cirrhosis.
--- NOTE | 2023-06-19 15:30 | ED ---
General Adult HPI - General Chief complaint: Recheck/Abnormal Lab/Rx Stated complaint: Jaundice-sent by Urgent care Time Seen by Provider: 06/19/23 12:05 Source: patient Mode of arrival: ambulatory Limitations: no limitations - History of Present Illness Initial comments: 73-year-old male with past medical history of diabetes and hypertension who presents emergency department reporting itching. Patient states for the past week he has had generalized itching. He went to urgent care today thinking that he was having an allergic reaction. Urgent care noted that the patient was jaundiced and recommended that he come to the emergency department evaluation. Patient denies any abdominal pain. He has had some watery diarrhea. No black or bloody stools. Patient admits to infrequent alcohol use. No history of cirrhosis. Denies hematemesis. No changes in his urination. No other alleviating, precipitating modifying factors - Related Data Home Medications Medication Instructions Recorded Confirmed Cholecalciferol [Vitamin D3 (25 50 mcg PO DAILY 10/06/21 06/19/23 Mcg = 1000 Iu)] Ferrous Sulfate [Iron (65 MG 325 mg PO DAILY 10/06/21 06/19/23 Elemental)] Pantoprazole [Protonix] 40 mg PO BID 10/06/21 06/19/23 Pravastatin Sodium 80 mg PO HS 10/06/21 06/19/23 amLODIPine [Norvasc] 5 mg PO HS 10/06/21 06/19/23 Insulin Glargine [Lantus Vial] 25 unit SQ DAILY 10/07/21 06/19/23 Aspirin EC [Ecotrin Low Dose] 81 mg PO DAILY 06/19/23 06/19/23 Doxazosin [Cardura] 4 mg PO DAILY 06/19/23 06/19/23 Levothyroxine Sodium [Synthroid] 50 mcg PO DAILY 06/19/23 06/19/23 atenoloL [Tenormin] 25 mg PO DAILY 06/19/23 06/19/23 lisinopriL [Zestril] 20 mg PO BID 06/19/23 06/19/23 Allergies Allergy/AdvReac Type Severity Reaction Status Date / Time codeine AdvReac Nausea & Verified 06/19/23 17:43 Vomiting Review of Systems ROS Statement: Those systems with pertinent positive or pertinent negative responses have been documented in the HPI. ROS Other: All systems not noted in ROS Statement are negative. Past Medical History Past Medical History: Diabetes Mellitus, Hypertension History of Any Multi-Drug Resistant Organisms: None Reported Additional Past Surgical History / Comment(s): right hip replacement Past Psychological History: No Psychological Hx Reported Smoking Status: Former smoker Past Alcohol Use History: Occasional Past Drug Use History: None Reported General Exam Limitations: no limitations General appearance: alert, in no apparent distress Head exam: Present: atraumatic, normocephalic, normal inspection Eye exam: Present: PERRL, EOMI, scleral icterus. Absent: conjunctival injection, periorbital swelling ENT exam: Present: normal exam, mucous membranes moist Neck exam: Present: normal inspection. Absent: tenderness, meningismus, lymphadenopathy Respiratory exam: Present: normal lung sounds bilaterally. Absent: respiratory distress, wheezes, rales, rhonchi, stridor Cardiovascular Exam: Present: regular rate, normal rhythm, normal heart sounds. Absent: systolic murmur, diastolic murmur, rubs, gallop, clicks GI/Abdominal exam: Present: soft, distended, normal bowel sounds, hernia. Absent: tenderness, guarding, rebound, rigid Extremities exam: Present: normal inspection, full ROM, normal capillary refill. Absent: tenderness, pedal edema, joint swelling, calf tenderness Back exam: Present: normal inspection Neurological exam: Present: alert, oriented X3, CN II-XII intact Psychiatric exam: Present: normal affect, normal mood Skin exam: Present: warm, dry, intact, normal color. Absent: rash Course Vital Signs 06/19/23 06/19/23 06/19/23 12:01 17:36 17:37 Temperature 98.1 F 97.5 F L 97.5 F L Pulse Rate 103 H 78 78 Respiratory 20 20 20 Rate Blood Pressure 114/68 133/82 133/82 O2 Sat by Pulse 100 97 97 Oximetry Medical Decision Making - Medical Decision Making Was pt. sent in by a medical professional or institution (, PA, PRINTED CIRCUIT BOARD DESIGNER, urgent c are, hospital, or half-way...) When possible be specific @ -Patient was sent in by urgent care Did you speak to anyone other than the patient for history (EMS, parent, family, police, friend...)? What history was obtained from this source @ -Spoke with the patient's family member Did you review nursing and triage notes (agree or disagree)? Why? @ -I reviewed and agree with nursing and triage notes Were old charts reviewed (outside hosp., previous admission, EMS record, old EKG, old radiological studies, urgent care reports/EKG's, half-way records)? Report findings @ -No old charts were reviewed Differential Diagnosis (chest pain, altered mental status, abdominal pain women, abdominal pain men, vaginal bleeding, weakness, fever, dyspnea, syncope, headache, dizziness, GI bleed, back pain, seizure, CVA, palpatations, mental health, musculoskeletal)? @ -Differential Abdominal Pain Men: Appendicitis, cholecystitis, diverticulosis, ischemic bowel, pancreatitis, hepatitis, UTI, gastroenteritis, AAA, incarcerated hernia, bowel obstruction, constipation, inflammatory bowel, hepatitis, peptic ulcer disease, splenic infarction, perforated viscus, testicular torsion, this is not meant to be an all-inclusive list EKG interpreted by me (3pts min.). @ -Not done X-rays interpreted by me (1pt min.). @ -None done CT interpreted by me (1pt min.). @ -Yes and demonstrates dilation of the intrahepatic and extrahepatic biliary ducts U/S interpreted by me (1pt. min.). @ -Yes was completed What testing was considered but not performed or refused? (CT, X-rays, U/S, labs)? Why? @ -None What meds were considered but not given or refused? Why? @ -None Did you discuss the management of the patient with other professionals (professionals i.e. , PA, PRINTED CIRCUIT BOARD DESIGNER, lab, RT, psych nurse, social services counselor, printing grey cloth tender, teacher, senior commercial loan officer, ancillary services manager therapy)? Give summary @ -Spoke with Dr. Coronado at [facility] who does accept transfer the patient Was smoking cessation discussed for >3mins.? @ -No Was critical care preformed (if so, how long)? @ -No Were there social determinants of health that impacted care today? How? (Homelessness, low income, unemployed, alcoholism, drug addiction, transportation, low edu. Level, literacy, decrease access to med. care, m[facility], rehab)? @ -No Was there de-escalation of care discussed even if they declined (Discuss DNR or withdrawal of care, Hospice)? DNR status @ -No What co-morbidities impacted this encounter? (DM, HTN, Smoking, COPD, CAD, Cancer, CVA, ARF, Chemo, Hep., AIDS, mental health diagnosis, sleep apnea, morbid obesity)? @ -Diabetes mellitus Was patient admitted / discharged? Hospital course, mention meds given and route, prescriptions, significant lab abnormalities, going to OR and other pertinent info. @ -Upon arrival patient was seen and evaluated in room 30. Thorough history and physical exam was performed. Patient does present with painless jaundice. IV was established. Laboratory studies are conducted. Bilirubin is markedly elevated. CT performed which demonstrates dilation of the intrahepatic and extrahepatic biliary ducts. Ultrasound was performed and demonstrates gallbladder sludge. Patient does require transfer to a facility with GI capabilities as he needs ERCP. Called and spoke with Dr. Coronado at [facility]. Does accept transfer of the patient. He will go via ambulance with ultrasound and CT results. Patient transferred in stable condition Undiagnosed new problem with uncertain prognosis? @ -Yes Drug Therapy requiring intensive monitoring for toxicity (Heparin, Nitro, Insulin, Cardizem)? @ -No Were any procedures done? @ -No Diagnosis/symptom? @ -Acute pruritus, painless jaundice, biliary duct obstruction, gallbladder sludge Acute, or Chronic, or Acute on Chronic? @ -Acute Uncomplicated (without systemic symptoms) or Complicated (systemic symptoms)? @ -Complicated Side effects of treatment? @ -No Exacerbation, Progression, or Severe Exacerbation? @ -No Poses a threat to life or bodily function? How? (Chest pain, USA, CT, pneumonia, PE, COPD, DKA, ARF, appy, cholecystitis, CVA, Diverticulitis, Homicidal, Suicidal, threat to staff... and all critical care pts) @ -Yes as patient has possible biliary obstruction - Lab Data Result diagrams: 06/19/23 13:24 06/19/23 13:24 Lab Results 06/19/23 06/19/23 06/19/23 Range/Units 13:24 13:24 13:24 WBC 9.3 (3.8-10.6) k/uL RBC 4.60 (4.30-5.90) m/uL Hgb 13.6 (13.0-17.5) gm/dL Hct 41.6 (39.0-53.0) % MCV 90.5 (80.0-100.0) fL MCH 29.7 (25.0-35.0) pg MCHC 32.8 (31.0-37.0) g/dL RDW 15.9 H (11.5-15.5) % Plt Count 159 (150-450) k/uL MPV 13.6 Neutrophils % 42 % Lymphocytes % 47 % Monocytes % 6 % Eosinophils % 1 % Basophils % 1 % Neutrophils # 3.9 (1.3-7.7) k/uL Lymphocytes # 4.4 (1.0-4.8) k/uL Monocytes # 0.6 (0-1.0) k/uL Eosinophils # 0.0 (0-0.7) k/uL Basophils # 0.1 (0-0.2) k/uL Manual Slide Review Performed Large Platelets Present Sodium 136 L (137-145) mmol/L Potassium 4.4 (3.5-5.1) mmol/L Chloride 109 H (98-107) mmol/L Carbon Dioxide 15 L (22-30) mmol/L Anion Gap 12 mmol/L BUN 18 (9-20) mg/dL Creatinine 0.75 (0.66-1.25) mg/dL Est GFR (CKD-EPI)AfAm >90 (>60 ml/min/1.73 sqM) Est GFR (CKD-EPI)NonAf >90 (>60 ml/min/1.73 sqM) Glucose 143 H (74-99) mg/dL Lactic Ac Sepsis Rflx Plasma Lactic Acid Lionel 2.5 H* (0.7-2.0) mmol/L Calcium 9.4 (8.4-10.2) mg/dL Total Bilirubin 9.3 H (0.2-1.3) mg/dL Conjugated Bilirubin 4.9 H (0.0-0.3) mg/dL Unconjugated Bilirubin 1.5 H (0.0-1.1) mg/dL Delta Bilirubin 2.9 H (0.0-0.2) mg/dL AST 59 (17-59) U/L ALT 98 H (4-49) U/L Alkaline Phosphatase 280 H (38-126) U/L Total Protein 6.8 (6.3-8.2) g/dL Albumin 3.9 (3.5-5.0) g/dL Lipase 327 H (23-300) U/L Urine Color Urine Appearance (Clear) Urine pH (5.0-8.0) Ur Specific [place] (1.001-1.035) Urine Protein (Negative) Urine Glucose (UA) (Negative) Urine Ketones (Negative) Urine Blood (Negative) Urine Nitrite (Negative) Urine Bilirubin (Negative) Urine Urobilinogen (<2.0) mg/dL Ur Leukocyte Esterase (Negative) 06/19/23 06/19/23 06/19/23 Range/Units 14:17 15:39 16:33 WBC (3.8-10.6) k/uL RBC (4.30-5.90) m/uL Hgb (13.0-17.5) gm/dL Hct (39.0-53.0) % MCV (80.0-100.0) fL MCH (25.0-35.0) pg MCHC (31.0-37.0) g/dL RDW (11.5-15.5) % Plt Count (150-450) k/uL MPV Neutrophils % % Lymphocytes % % Monocytes % % Eosinophils % % Basophils % % Neutrophils # (1.3-7.7) k/uL Lymphocytes # (1.0-4.8) k/uL Monocytes # (0-1.0) k/uL Eosinophils # (0-0.7) k/uL Basophils # (0-0.2) k/uL Manual Slide Review Large Platelets Sodium (137-145) mmol/L Potassium (3.5-5.1) mmol/L Chloride (98-107) mmol/L Carbon Dioxide (22-30) mmol/L Anion Gap mmol/L BUN (9-20) mg/dL Creatinine (0.66-1.25) mg/dL Est GFR (CKD-EPI)AfAm (>60 ml/min/1.73 sqM) Est GFR (CKD-EPI)NonAf (>60 ml/min/1.73 sqM) Glucose (74-99) mg/dL Lactic Ac Sepsis Rflx Y Plasma Lactic Acid Lionel 2.2 H* (0.7-2.0) mmol/L Calcium (8.4-10.2) mg/dL Total Bilirubin (0.2-1.3) mg/dL Conjugated Bilirubin (0.0-0.3) mg/dL Unconjugated Bilirubin (0.0-1.1) mg/dL Delta Bilirubin (0.0-0.2) mg/dL AST (17-59) U/L ALT (4-49) U/L Alkaline Phosphatase (38-126) U/L Total Protein (6.3-8.2) g/dL Albumin (3.5-5.0) g/dL Lipase (23-300) U/L Urine Color Dark Yellow Urine Appearance Clear (Clear) Urine pH 5.5 (5.0-8.0) Ur Specific [place] >1.050 H (1.001-1.035) Urine Protein Trace H (Negative) Urine Glucose (UA) Negative (Negative) Urine Ketones Negative (Negative) Urine Blood Negative (Negative) Urine Nitrite Negative (Negative) Urine Bilirubin 2+ H (Negative) Urine Urobilinogen <2.0 (<2.0) mg/dL Ur Leukocyte Esterase Negative (Negative) 06/19/23 Range/Units 17:07 WBC (3.8-10.6) k/uL RBC (4.30-5.90) m/uL Hgb (13.0-17.5) gm/dL Hct (39.0-53.0) % MCV (80.0-100.0) fL MCH (25.0-35.0) pg MCHC (31.0-37.0) g/dL RDW (11.5-15.5) % Plt Count (150-450) k/uL MPV Neutrophils % % Lymphocytes % % Monocytes % % Eosinophils % % Basophils % % Neutrophils # (1.3-7.7) k/uL Lymphocytes # (1.0-4.8) k/uL Monocytes # (0-1.0) k/uL Eosinophils # (0-0.7) k/uL Basophils # (0-0.2) k/uL Manual Slide Review Large Platelets Sodium (137-145) mmol/L Potassium (3.5-5.1) mmol/L Chloride (98-107) mmol/L Carbon Dioxide (22-30) mmol/L Anion Gap mmol/L BUN (9-20) mg/dL Creatinine (0.66-1.25) mg/dL Est GFR (CKD-EPI)AfAm (>60 ml/min/1.73 sqM) Est GFR (CKD-EPI)NonAf (>60 ml/min/1.73 sqM) Glucose (74-99) mg/dL Lactic Ac Sepsis Rflx Y Plasma Lactic Acid Lionel (0.7-2.0) mmol/L Calcium (8.4-10.2) mg/dL Total Bilirubin (0.2-1.3) mg/dL Conjugated Bilirubin (0.0-0.3) mg/dL Unconjugated Bilirubin (0.0-1.1) mg/dL Delta Bilirubin (0.0-0.2) mg/dL AST (17-59) U/L ALT (4-49) U/L Alkaline Phosphatase (38-126) U/L Total Protein (6.3-8.2) g/dL Albumin (3.5-5.0) g/dL Lipase (23-300) U/L Urine Color Urine Appearance (Clear) Urine pH (5.0-8.0) Ur Specific [place] (1.001-1.035) Urine Protein (Negative) Urine Glucose (UA) (Negative) Urine Ketones (Negative) Urine Blood (Negative) Urine Nitrite (Negative) Urine Bilirubin (Negative) Urine Urobilinogen (<2.0) mg/dL Ur Leukocyte Esterase (Negative) Disposition Clinical Impression: Jaundice, Common biliary duct obstruction, Transaminitis Disposition: OTHER INSTITUTION NOT DEFINED Condition: Stable Is patient prescribed a controlled substance at d/c from ED?: No Referrals: [facility],Clinic [Primary Care Provider] - 1-2 days Time of Disposition: 16:03 - Out of Hospital Transfer - Req. Specs Out of Hospital Transfer - Requested Specifics: Other Emergency Center ([facility]
[2023-06-19 15:55] LABS: Appearance,Urine Clear (Clear); Bilirubin,Urine 2+ (Negative); Blood,Urine Negative (Negative); Color,Urine Dark Yellow; Glucose,Urine (UA) Negative (Negative); Ketones,Urine Negative (Negative); Leukocyte Esterase,Urine Negative (Negative); Nitrite,Urine Negative (Negative); PH, Urine 5.5 (5.0-8.0); Protein,Urine Trace (Negative); Urobilinogen,Urine <2.0 mg/dL (<2.0)
[2023-06-19 16:07] LABS: Specific Gravity,Urine >1.050 (1.001-1.035)
--- NOTE | 2023-06-19 16:46 | US ---
EXAMINATION TYPE: US gallbladder DATE OF EXAM: 06/19/2023 COMPARISON: Same day CT 06/19/2023 CLINICAL INDICATION: Male, 73 years old with history of right upper quadrant; Jaundice. TECHNIQUE: Multiple sonographic images of the right upper quadrant are obtained. FINDINGS: EXAM MEASUREMENTS: Liver Length: 14.5 cm Gallbladder Wall: 0.26 cm CBD: 1.5 cm Right Kidney: 11.0 x 5.8 x 5.0 cm SECURITIES COUNSELOR NOTES: Limited due to gas. Pancreas: Limited due to gas. Liver: Appears very coarse. Ducts appear dilated. Gallbladder: Appears hydropic measuring 10.5 cm in length and 4.5 cm in width. *Echogenic material s een within: 9.7 x 3.8 x 2.0 cm Evidence for sonographic Beck's sign: No CBD: *Dilated Right Kidney: No hydronephrosis or masses seen IMPRESSION: 1. Distended gallbladder with dependent echogenic sludge. Sonographic Beck sign is negative. There is no pericholecystic fluid. 2. Dilated common bile duct measuring 1.5 cm and mild to moderate intrahepatic biliary ductal dilatat ion. 3. Limited evaluation of the pancreas.
[2023-06-19 17:52] VITALS: BP 133/82; PULSE 78; TEMP 97.5
== END 2023-06-19 18:02 | disposition other institution (70) ==
LOC: EC 11:58
DX: K83.1 Obstruction of bile duct (principal); R74.01 Elevation of levels of liver transaminase levels; R17 Unspecified jaundice; E11.9 Type 2 diabetes mellitus without complications; Z87.891 Personal history of nicotine dependence; Z88.5 Allergy status to narcotic agent; Z79.4 Long term (current) use of insulin
CPT/HCPCS: 99285 ×2; 36415; 80053; 82248; 83605; 83690; 85025; 81003; 76705; 74177; Q9967

== ENCOUNTER 2023-06-25 23:57 | Emergency (ER) | payer MEDICARE, OTHER ==
[2023-06-26 00:30] VITALS: RESP 16; TEMP 97.3
--- NOTE | 2023-06-26 01:24 | ED ---
General Adult HPI - General Chief complaint: Skin/Abscess/Foreign Body Stated complaint: itching all over Time Seen by Provider: 06/26/23 01:22 Source: patient, family, RN notes reviewed Mode of arrival: ambulatory Limitations: no limitations - History of Present Illness Initial comments: 73-year-old male presented to the ER with a chief complaint of itchiness. Patient recently transferred to [place] and received 2 biliary stents for jaundice. Patient states last night he started to experience itchiness all over his body. He states it is just gotten worse. Family, at bedside, state he appears jaundiced. Patient also is reporting chills and hot and cold flashes. He denies any pain, shortness of breath, difficulty urinating, constipation/di arrhea or peripheral edema. - Related Data Home Medications Medication Instructions Recorded Confirmed Cholecalciferol [Vitamin D3 (25 50 mcg PO DAILY 10/06/21 06/19/23 Mcg = 1000 Iu)] Ferrous Sulfate [Iron (65 MG 325 mg PO DAILY 10/06/21 06/19/23 Elemental)] Pantoprazole [Protonix] 40 mg PO BID 10/06/21 06/19/23 Pravastatin Sodium 80 mg PO HS 10/06/21 06/19/23 amLODIPine [Norvasc] 5 mg PO HS 10/06/21 06/19/23 Insulin Glargine [Lantus Vial] 25 unit SQ DAILY 10/07/21 06/19/23 Aspirin EC [Ecotrin Low Dose] 81 mg PO DAILY 06/19/23 06/19/23 Doxazosin [Cardura] 4 mg PO DAILY 06/19/23 06/19/23 Levothyroxine Sodium [Synthroid] 50 mcg PO DAILY 06/19/23 06/19/23 atenoloL [Tenormin] 25 mg PO DAILY 06/19/23 06/19/23 lisinopriL [Zestril] 20 mg PO BID 06/19/23 06/19/23 Previous Rx's Medication Instructions Recorded diphenhydrAMINE [Benadryl] 50 mg PO QID PRN #20 capsule 06/26/23 Allergies Allergy/AdvReac Type Severity Reaction Status Date / Time codeine AdvReac Nausea & Verified 06/19/23 17:43 Vomiting Review of Systems ROS Statement: Those systems with pertinent positive or pertinent negative responses have been documented in the HPI. ROS Other: All systems not noted in ROS Statement are negative. Past Medical History Past Medical History: Diabetes Mellitus, Hypertension History of Any Multi-Drug Resistant Organisms: None Reported Additional Past Surgical History / Comment(s): right hip replacement Past Psychological History: No Psychological Hx Reported Smoking Status: Former smoker Past Alcohol Use History: Occasional Past Drug Use History: None Reported General Exam Limitations: no limitations General appearance: alert, in no apparent distress Respiratory exam: Present: normal lung sounds bilaterally. Absent: respiratory distress, wheezes, rales, rhonchi, stridor Cardiovascular Exam: Present: regular rate, normal rhythm, normal heart sounds. Absent: systolic murmur, diastolic murmur, rubs, gallop, clicks GI/Abdominal exam: Present: soft, normal bowel sounds. Absent: distended, tenderness, guarding, rebound, rigid Neurological exam: Present: alert, oriented X3, CN II-XII intact Skin exam: Present: warm, dry, abrasion (Multiple abrasions and excoriations on bilateral upper and lower extremities and chest ), other (Jaundice) Course Vital Signs 06/26/23 06/26/23 00:12 04:10 Temperature 97.3 F L Pulse Rate 87 78 Respiratory 16 16 Rate Blood Pressure 121/71 121/75 O2 Sat by Pulse 97 97 Oximetry Medical Decision Making - Medical Decision Making Was pt. sent in by a medical professional or institution (, MARK, CORPORATE LEGAL ASSISTANT, urgent care, hospital, or retirement...) When possible be specific @ -No Did you speak to anyone other than the patient for history (EMS, parent, family, police, friend...)? What history was obtained from this source @ -[Son aiding in HPI and past medical history. Did you review nursing and triage notes (agree or disagree)? Why? @ -I reviewed and agree with nursing and triage notes Were old charts reviewed (outside hosp., previous admission, EMS record, old EKG, old radiological studies, urgent care reports/EKG's, retirement records)? Report findings @ -[Yes, I reviewed ER visit from 06-19-2023 where patient was found to have elevated bilirubin and was transferred to [facility] for further care and treatment. Differential Diagnosis (chest pain, altered mental status, abdominal pain women, abdominal pain men, vaginal bleeding, weakness, fever, dyspnea, syncope, headache, dizziness, GI bleed, back pain, seizure, CVA, palpatations, mental health, musculoskeletal)? @ -Differential Abdominal Pain Men: Appendicitis, cholecystitis, diverticulosis, ischemic bowel, pancreatitis, hepatitis, UTI, gastroenteritis, AAA, incarcerated hernia, bowel obstruction, constipation, inflammatory bowel, hepatitis, peptic ulcer disease, splenic infarction, perforated viscus, testicular torsion, this is not meant to be an all-inclusive list EKG interpreted by me (3pts min.). @ -[None X-rays interpreted by me (1pt min.). @ -[None done CT interpreted by me (1pt min.). @ -None done U/S interpreted by me (1pt. min.). @ -None done What testing was considered but not performed or refused? (CT, X-rays, U/S, la bs)? Why? @ -None What meds were considered but not given or refused? Why? @ -None Did you discuss the management of the patient with other professionals (professionals i.e. , PA, CORPORATE LEGAL ASSISTANT, lab, RT, psych nurse, psychotherapist social worker, cycle touring guide, teacher, chief information officer, case management specialist)? Give summary @ -No Was smoking cessation discussed for >3mins.? @ -No Was critical care preformed (if so, how long)? @ -No Were there social determinants of health that impacted care today? How? (Homelessness, low income, unemployed, alcoholism, drug addiction, transportation, low edu. Level, literacy, decrease access to med. care, prison, rehab)? @ -No Was there de-escalation of care discussed even if they declined (Discuss DNR or withdrawal of care, Hospice)? DNR status @ -No What co-morbidities impacted this encounter? (DM, HTN, Smoking, COPD, CAD, Cancer, CVA, ARF, Chemo, Hep., AIDS, mental health diagnosis, sleep apnea, morbid obesity)? @ -Advanced age Was patient admitted / discharged? Hospital course, mention meds given and route, prescriptions, significant lab abnormalities, going to OR and other pertinent info. @ -Discharge. 73-year-old male presenting to the ER with a chief complaint of pruritus. History and physical exam completed. Vitals stable. Patient no signs of acute distress and nontoxic-appearing. Patient was mildly jaundiced on exam. Multiple excoriations and abrasions to skin from scratching. Labs obtained significant for white blood cell count 12.2, hemoglobin 12.4, transamin itis (total bilirubin 7.2, conjugated bilirubin 2.8, unconjugated bilirubin 1.2, AST 93, ALT 70, alk phos 238.) Received by mouth Benadryl with improvement of symptoms. Results discussed with patient and son, all questions answered. I discussed with the patient his option for transfer as we do not have access to lab results from [facility] and we are unsure if his lab results are improving. Patient and son decided against transfer and stated they would follow-up outpatient tomorrow with GI surgeon/ Strict return parameters discussed. Patient discharged in stable condition with follow-up to PCP/GI surgeon. Patient and son verbally expressed understanding and agreement with care plan. Case discussed with ED attending, Dr. Moran. Undiagnosed new problem with uncertain prognosis? @ -No Drug Therapy requiring intensive monitoring for toxicity (Heparin, Nitro, Insulin, Cardizem)? @ -No Were any procedures done? @ -No Diagnosis/symptom? @ -Transaminitis/jaundice Acute, or Chronic, or Acute on Chronic? @ -Acute Uncomplicated (without systemic symptoms) or Complicated (systemic symptoms)? @ -Uncomplicated Side effects of treatment? @ -No Exacerbation, Progression, or Severe Exacerbation? @ -No Poses a threat to life or bodily function? How? (Chest pain, USA, [place], pneumonia, PE, COPD, DKA, ARF, appy, cholecystitis, CVA, Diverticulitis, Homicidal, Suicidal, threat to staff... and all critical care pts) @ -No - Lab Data Result diagrams: 06/26/23 02:17 06/26/23 02:17 Lab Results 06/26/23 06/26/23 06/26/23 Range/Units 02:17 02:17 02:17 WBC 12.2 H (3.8-10.6) k/uL RBC 4.16 L (4.30-5.90) m/uL Hgb 12.4 L (13.0-17.5) gm/dL Hct 37.2 L (39.0-53.0) % MCV 89.5 (80.0-100.0) fL MCH 30.0 (25.0-35.0) pg MCHC 33.4 (31.0-37.0) g/dL RDW 16.2 H (11.5-15.5) % Plt Count 169 (150-450) k/uL MPV 11.6 Neutrophils % (Manual) 24 % Lymphocytes % (Manual) 62 % Monocytes % (Manual) 11 % Eosinophils % (Manual) 3 % Neutrophils # (Manual) 2.93 (1.3-7.7) k/uL Lymphocytes # (Manual) 7.56 H (1.0-4.8) k/uL Monocytes # (Manual) 1.34 H (0-1.0) k/uL Eosinophils # (Manual) 0.37 (0-0.7) k/uL Nucleated RBCs 0 (0-0) /100 WBC Manual Slide Review Performed Anisocytosis Slight Sodium 133 L (137-145) mmol/L Potassium 4.8 (3.5-5.1) mmol/L Chloride 106 (98-107) mmol/L Carbon Dioxide 17 L (22-30) mmol/L Anion Gap 10 mmol/L BUN 15 (9-20) mg/dL Creatinine 0.55 L (0.66-1.25) mg/dL Est GFR (CKD-EPI)AfAm >90 (>60 ml/min/1.73 sqM) Est GFR (CKD-EPI)NonAf >90 (>60 ml/min/1.73 sqM) Glucose 119 H (74-99) mg/dL Plasma Lactic Acid Lionel 1.3 (0.7-2.0) mmol/L Calcium 8.6 (8.4-10.2) mg/dL Total Bilirubin 7.2 H (0.2-1.3) mg/dL Conjugated Bilirubin 2.8 H (0.0-0.3) mg/dL Unconjugated Bilirubin 1.2 H (0.0-1.1) mg/dL Delta Bilirubin 3.2 H (0.0-0.2) mg/dL AST 93 H (17-59) U/L ALT 70 H (4-49) U/L Alkaline Phosphatase 238 H (38-126) U/L Total Protein 5.7 L (6.3-8.2) g/dL Albumin 3.3 L (3.5-5.0) g/dL Disposition Clinical Impression: Transaminitis, Jaundice Disposition: HOME SELF-CARE Condition: Stable Instructions (If sedation given, give patient instructions): Jaundice (ED) Additional Instructions: Follow-up with GI surgeon in the next 24 to 48 hours. Have a very low threshold to returning to the ER. Prescriptions: diphenhydrAMINE [Benadryl] 50 mg PO QID PRN #20 capsule PRN Reason: Itching Is patient prescribed a controlled substance at d/c from ED?: No Referrals: [facility],Clinic [Primary Care Provider] - 1-2 days Forms: Area PCPs Time of Disposition: 04:05
[2023-06-26] MEDS: diphenhydrAMINE 50 MG/ML 1 ML VIAL IVP STA (02:37)
[2023-06-26 03:03] LABS: Anisocytosis Slight; HCT 37.2 % (39.0-53.0); HGB 12.4 gm/dL (13.0-17.5); MCHC 33.4 g/dL (31.0-37.0); MCV 89.5 fL (80.0-100.0); Mean Platelet Volume 11.6; Platelet Count 169 k/uL (150-450); RBC 4.16 m/uL (4.30-5.90); RDW 16.2 % (11.5-15.5); WBC 12.2 k/uL (3.8-10.6)
[2023-06-26 03:45] LABS: ALT 70 U/L (4-49); AST 93 U/L (17-59); African American GFR (CKD) >90 (>60 ml/min/1.73 sqM); Albumin 3.3 g/dL (3.5-5.0); Alkaline Phosphatase 238 U/L (38-126); Anion Gap 10 mmol/L; Bilirubin, Conjugated 2.8 mg/dL (0.0-0.3); Bilirubin, Delta 3.2 mg/dL (0.0-0.2); Bilirubin,Unconjugated 1.2 mg/dL (0.0-1.1); Blood Urea Nitrogen 15 mg/dL (9-20); Calcium 8.6 mg/dL (8.4-10.2); Carbon Dioxide 17 mmol/L (22-30); Chloride 106 mmol/L (98-107); Glucose 119 mg/dL (74-99); Non-African American GFR(CKD) >90 (>60 ml/min/1.73 sqM); Potassium 4.8 mmol/L (3.5-5.1); Sodium 133 mmol/L (137-145); Total Bilirubin 7.2 mg/dL (0.2-1.3); Total Protein 5.7 g/dL (6.3-8.2)
[2023-06-26 04:34] LABS: Eosinophils # (M) 0.37 k/uL (0-0.7); Lymphocytes # (M) 7.56 k/uL (1.0-4.8); Monocytes # (M) 1.34 k/uL (0-1.0); Neutrophils # (M) 2.93 k/uL (1.3-7.7); Neutrophils % (M) 24 %; Nucleated Red Blood Cells 0 /100 WBC (0-0); Total Cells Counted 100
[2023-06-26 04:59] VITALS: BP 121/75; PULSE 78
== END 2023-06-26 04:10 | disposition home or self-care (01) ==
LOC: EC 23:57
DX: R17 Unspecified jaundice (principal); R74.01 Elevation of levels of liver transaminase levels; Z87.891 Personal history of nicotine dependence; Z88.5 Allergy status to narcotic agent
CPT/HCPCS: 36415; 80053; 82248; 83605; 85025; 99283; 96374; J1200

== ENCOUNTER 2023-07-01 12:48 | Emergency (ER) | payer MEDICARE, OTHER ==
--- NOTE | 2023-07-01 15:27 | ED ---
General Adult HPI - General Chief complaint: Skin/Abscess/Foreign Body Stated complaint: Whole body itching Time Seen by Provider: 07/01/23 15:00 Source: patient Mode of arrival: ambulatory Limitations: no limitations - History of Present Illness Initial comments: Dictation was produced using Gudog dictation software. please excuse any grammatical, word or spelling errors. Chief Complaint: 73-year-old male presents emergency department with pruritus History of Present Illness: Patient 73-year-old male he was seen here in the emergency department on June 25. Patient was transferred to [place] where he was seen by GI doctor for new onset of jaundice along with diffuse pruritus. He was seen there and had a biopsy done along with Lobo stent placement. 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 This primary care doctor placed him on Benadryl for his diffuse pruritus. Patient was instructed to come to the emergency department if his itching did not feel any improved. Patient otherwise has no other complaints. Denies any abdominal pain. Family at the bedside reports that his jaundice appears to be improved. He has a follow-up with his oncologist in a week. The ROS documented in this emergency department record has been reviewed and confirmed by me. Those systems with pertinent positive or negative responses have been documented in the HPI. All other systems are other negative and/or noncontributory. - Related Data Home Medications Medication Instructions Recorded Confirmed Cholecalciferol [Vitamin D3 (25 50 mcg PO DAILY 10/06/21 06/19/23 Mcg = 1000 Iu)] Ferrous Sulfate [Iron (65 MG 325 mg PO DAILY 10/06/21 06/19/23 Elemental)] Pantoprazole [Protonix] 40 mg PO BID 10/06/21 06/19/23 Pravastatin Sodium 80 mg PO HS 10/06/21 06/19/23 amLODIPine [Norvasc] 5 mg PO HS 10/06/21 06/19/23 Insulin Glargine [Lantus Vial] 25 unit SQ DAILY 10/07/21 06/19/23 Aspirin EC [Ecotrin Low Dose] 81 mg PO DAILY 06/19/23 06/19/23 Doxazosin [Cardura] 4 mg PO DAILY 06/19/23 06/19/23 Levothyroxine Sodium [Synthroid] 50 mcg PO DAILY 06/19/23 06/19/23 atenoloL [Tenormin] 25 mg PO DAILY 06/19/23 06/19/23 lisinopriL [Zestril] 20 mg PO BID 06/19/23 06/19/23 Previous Rx's Medication Instructions Recorded diphenhydrAMINE [Benadryl] 50 mg PO QID PRN #20 capsule 06/26/23 hydrOXYzine HCL [Hydroxyzine HCl] 50 mg PO TID PRN #15 tab 07/01/23 Allergies Allergy/AdvReac Type Severity Reaction Status Date / Time codeine AdvReac Nausea & Verified 06/19/23 17:43 Vomiting Review of Systems ROS Statement: Those systems with pertinent positive or pertinent negative responses have been documented in the HPI. ROS Other: All systems not noted in ROS Statement are negative. Past Medical History Past Medical History: Cancer, Diabetes Mellitus, Hypertension Additional Past Medical History / Comment(s): pancreatic ca History of Any Multi-Drug Resistant Organisms: None Reported Additional Past Surgical History / Comment(s): right hip replacement Past Psychological History: No Psychological Hx Reported Smoking Status: Former smoker Past Alcohol Use History: Occasional Past Drug Use History: None Reported General Exam - General Exam Comments Initial Comments: PHYSICAL EXAM: General Impression: Alert and oriented x3, not in acute distress, jaundiced HEENT: Normocephalic atraumatic, extra-ocular movements intact, pupils equal and reactive to light bilaterally, mucous membranes moist. Cardiovascular: Heart regular rate and rhythm Chest: Able to complete full sentences, no retractions, no tachypnea Abdomen: abdomen soft, non-tender, non-distended, no organomegaly Musculoskeletal: Pulses present and equal in all extremities, no peripheral edema Motor: no focal deficits noted Neurological: CN II-XII grossly intact, no focal motor or sensory deficits noted Skin: Intact with no visualized rashes Psych: Normal affect and mood Limitations: no limitations Course Vital Signs 07/01/23 12:52 Temperature 97.3 F L Pulse Rate 82 Respiratory 20 Rate Blood Pressure 124/75 O2 Sat by Pulse 99 Oximetry Medical Decision Making - Medical Decision Making Was pt. sent in by a medical professional or institution (, PA, POST ADOPTION COORDINATOR, urgent care, hospital, or penitentiary...) When possible be specific @ -No Did you speak to anyone other than the patient for history (EMS, parent, family, police, friend...)? What history was obtained from this source @ -No Did you review nursing and triage notes (agree or disagree)? Why? @ -I reviewed and agree with nursing and triage notes Were old charts reviewed (outside hosp., previous admission, EMS record, old EKG, old radiological studies, urgent care reports/EKG's, penitentiary records)? Report findings @ -No old charts were reviewed Differential Diagnosis (chest pain, altered mental status, abdominal pain women, abdominal pain men, vaginal bleeding, musculoskeletal, weakness, fever, dyspnea, syncope, headache, dizziness, GI bleed, back pain, seizure, CVA, palpatations, mental health)? @ -Urticaria, Tejada-Matheus's, toxic epidermal necrolysis, dermatitis EKG interpreted by me (3pts min.). @ -None done X-rays interpreted by me (1pt min.). @ -None done CT interpreted by me (1pt min.). @ -None done U/S interpreted by me (1pt. min.). @ -None done What testing was considered but not performed or refused? (CT, X-rays, U/S, labs)? Why? @ -None What meds were considered but not given or refused? Why? @ -None Did you discuss the management of the patient with other professionals (professionals i.e. , PA, POST ADOPTION COORDINATOR, lab, RT, psych nurse, dialysis social worker, train operator, teacher, supervisory cbp officer, piano case and bench assembler)? Give summary @ -No Was smoking cessation discussed for >3mins.? @ -No Was critical care preformed (if so, how long)? @ -No Were there social determinants of health that impacted care today? How? (Homelessness, low income, unemployed, alcoholism, drug addiction, transportation, low edu. Level, literacy, decrease access to med. care, intermediate, rehab)? @ -No Was there de-escalation of care discussed even if they declined (Discuss DNR or withdrawal of care, Hospice)? DNR status @ -No What co-morbidities impacted this encounter? (DM, HTN, Smoking, COPD, CAD, Cancer, CVA, ARF, Chemo, Hep., AIDS, mental health diagnosis, sleep apnea, morbid obesity)? @ -None Was patient admitted / discharged? Hospital course, mention meds given and route, prescriptions, significant lab abnormalities, going to OR and other pertinent info. @ -73-year-old male brought to the emergency department for diffuse pruritus. He has history of elevated bilirubin levels secondary to recently diagnosed pancreatic cancer. Laboratory evaluation obtained. Bilirubin is today is 4.6 decreased from 7.29.3 from last month. Patient given Atarax with improvement of his itching. Patient discharged advised follow-up with primary care doctor and oncologist. Undiagnosed new problem with uncertain prognosis? @ -No Drug Therapy requiring intensive monitoring for toxicity (Heparin, Nitro, Insulin, Cardizem)? @ -No Were any procedures done? @ -No Diagnosis/symptom? Acute, or Chronic, or Acute on Chronic? Uncomplicated (without systemic symptoms) or Complicated (systemic symptoms)? @ -Bilirubin induced dermatitis Side effects of treatment? @ -No Exacerbation, Progression, or Severe Exacerbation? @ -No Poses a threat to life or bodily function? How? (Chest pain, USA, [place], pneumonia, PE, COPD, DKA, ARF, appy, cholecystitis, CVA, Diverticulitis, Homicidal, Suicidal, threat to staff... and all critical care pts) @ -yes - Lab Data Result diagrams: 07/01/23 15:42 07/01/23 15:42 Lab Results 07/01/23 07/01/23 Range/Units 15:42 15:42 WBC 9.4 (3.8-10.6) k/uL RBC 4.44 (4.30-5.90) m/uL Hgb 13.0 (13.0-17.5) gm/dL Hct 40.9 (39.0-53.0) % MCV 92.3 (80.0-100.0) fL MCH 29.3 (25.0-35.0) pg MCHC 31.8 (31.0-37.0) g/dL RDW 16.4 H (11.5-15.5) % Plt Count 206 (150-450) k/uL MPV 11.1 Neutrophils % (Manual) 26 % Lymphocytes % (Manual) 71 % Monocytes % (Manual) 2 % Eosinophils % (Manual) 1 % Neutrophils # (Manual) 2.44 (1.3-7.7) k/uL Lymphocytes # (Manual) 6.67 H (1.0-4.8) k/uL Monocytes # (Manual) 0.19 (0-1.0) k/uL Eosinophils # (Manual) 0.09 (0-0.7) k/uL Nucleated RBCs 0 (0-0) /100 WBC Manual Slide Review Performed Reactive Lymphocytes Present Anisocytosis Slight Sodium 134 L (137-145) mmol/L Potassium 5.0 (3.5-5.1) mmol/L Chloride 105 (98-107) mmol/L Carbon Dioxide 20 L (22-30) mmol/L Anion Gap 9 mmol/L BUN 16 (9-20) mg/dL Creatinine 0.62 L (0.66-1.25) mg/dL Est GFR (CKD-EPI)AfAm >90 (>60 ml/min/1.73 sqM) Est GFR (CKD-EPI)NonAf >90 (>60 ml/min/1.73 sqM) Glucose 188 H (74-99) mg/dL Calcium 8.5 (8.4-10.2) mg/dL Total Bilirubin 4.6 H (0.2-1.3) mg/dL Conjugated Bilirubin 0.9 H (0.0-0.3) mg/dL Unconjugated Bilirubin 0.9 (0.0-1.1) mg/dL Delta Bilirubin 2.8 H (0.0-0.2) mg/dL AST 84 H (17-59) U/L ALT 65 H (4-49) U/L Alkaline Phosphatase 232 H (38-126) U/L Total Protein 6.3 (6.3-8.2) g/dL Albumin 3.4 L (3.5-5.0) g/dL Disposition Clinical Impression: Pruritus Disposition: HOME SELF-CARE Condition: Fair Instructions (If sedation given, give patient instructions): Jaundice (ED) Prescriptions: hydrOXYzine HCL [Hydroxyzine HCl] 50 mg PO TID PRN #15 tab PRN Reason: Itching Is patient prescribed a controlled substance at d/c from ED?: No Referrals: Emily Peck PAC [Primary Care Provider] - 1-2 days Time of Disposition: 16:41
[2023-07-01] MEDS: hydrOXYzine HCL 25 MG TAB PO STA (15:45)
[2023-07-01 15:50] LABS: Anisocytosis Slight; HCT 40.9 % (39.0-53.0); MCH 29.3 pg (25.0-35.0); MCHC 31.8 g/dL (31.0-37.0); MCV 92.3 fL (80.0-100.0); Mean Platelet Volume 11.1; Platelet Count 206 k/uL (150-450); RBC 4.44 m/uL (4.30-5.90); RDW 16.4 % (11.5-15.5); WBC 9.4 k/uL (3.8-10.6)
[2023-07-01 15:59] LABS: ALT 65 U/L (4-49); African American GFR (CKD) >90 (>60 ml/min/1.73 sqM); Albumin 3.4 g/dL (3.5-5.0); Anion Gap 9 mmol/L; Bilirubin, Conjugated 0.9 mg/dL (0.0-0.3); Bilirubin, Delta 2.8 mg/dL (0.0-0.2); Bilirubin,Unconjugated 0.9 mg/dL (0.0-1.1); Blood Urea Nitrogen 16 mg/dL (9-20); Calcium 8.5 mg/dL (8.4-10.2); Carbon Dioxide 20 mmol/L (22-30); Chloride 105 mmol/L (98-107); Glucose 188 mg/dL (74-99); Non-African American GFR(CKD) >90 (>60 ml/min/1.73 sqM); Sodium 134 mmol/L (137-145); Total Bilirubin 4.6 mg/dL (0.2-1.3); Total Protein 6.3 g/dL (6.3-8.2)
[2023-07-01 16:00] LABS: AST 84 U/L (17-59)
[2023-07-01 16:01] LABS: Alkaline Phosphatase 232 U/L (38-126)
[2023-07-01 16:28] LABS: Eosinophils # (M) 0.09 k/uL (0-0.7); Lymphocytes # (M) 6.67 k/uL (1.0-4.8); Monocytes # (M) 0.19 k/uL (0-1.0); Neutrophils # (M) 2.44 k/uL (1.3-7.7); Neutrophils % (M) 26 %; Nucleated Red Blood Cells 0 /100 WBC (0-0); Reactive Lymphocytes Present; Total Cells Counted 100
[2023-07-01 17:01] VITALS: BP 125/84; PULSE 92; RESP 18; TEMP 98.6
== END 2023-07-01 16:49 | disposition home or self-care (01) ==
LOC: EC 12:48
DX: L29.9 Pruritus, unspecified (principal); Z88.5 Allergy status to narcotic agent; Z87.891 Personal history of nicotine dependence
CPT/HCPCS: 36415; 80053; 82248; 85025; 99283

== ENCOUNTER → 2023-07-17 | Outpatient (CLI) | payer MEDICARE, OTHER ==
--- NOTE | 2023-07-20 14:41 | PE ---
EXAMINATION TYPE: PET CT fusion skull to thigh DATE OF EXAM: 07/17/2023 CLINICAL INDICATION:Male, 73 years old with history of C25.3 PANCREAS CANCER; TECHNIQUE: Following the intravenous administration of 10.16 mCi of F-18 FDG, whole body images are performed from the skull base to the midthigh. Images are reviewed on the computer in the coronal, axial, and sagittal planes. Reconstructed rotating images are created on independent workstation and reviewed on the computer. A non-contrast CT is performed in conjunction with the PET scan. Glucose level 113 mg/dL CT DLP: 419 mGycm, Automated exposure control for dose reduction was used. COMPARISON: CT 06/19/2023., PET/CT None, FINDINGS: Mediastinal SUV mean is 1.8. Hepatic parenchyma SUV mean is 2.6. SKULL BASE AND NECK: No suspicious radiotracer activity. CHEST, MEDIASTINUM, AND HILAR REGION: No suspicious radiotracer activity. ABDOMEN AND PELVIS: No suspicious radiotracer activity. MUSCULOSKELETAL STRUCTURES: No suspicious radiotracer activity. OTHER CT: There is moderate to severe coronary artery atherosclerosis. Multilevel degeneration change s present. Biliary stent in appropriate position. Fat-containing inguinal hernias. Suspected postsurg ical repair changes of left inguinal canal with persistent small fat-containing inguinal hernia. Left renal cyst. Moderate centrilobular emphysema changes throughout the lungs. IMPRESSION: No suspicious radiotracer activity. Findings communicated to Dr. Kay on 07/20/2023 2:[address] Zeke Kent.
== END | disposition home or self-care (01) ==
LOC: RADPETMAIN 15:49
PROVIDERS: ATTEND Family Medicine
DX: C25.3 Malignant neoplasm of pancreatic duct (principal)
CPT/HCPCS: 78815; A9552

== ENCOUNTER 2023-09-20 08:59 | Day surgery (SDC) | payer MEDICARE, OTHER ==
[2023-09-19 09:20] VITALS: BMI 28.3
[~2023-09-20 08:59] MED LIST changes: -ACETAMINOPHEN TAB 500 MG TAB PO PRN; -DEXAMETHASONE SOD PHOSPHATE 4 MG/ML 1 ML VIAL IV ONE; +HYDROmorphone 0.5 MG/0.5 ML SYRINGE IVP PRN; +LIDOCAINE 1% (10MG/ML) FOR IV START INTRADERMA PRN; -MELOXICAM 7.5 MG TAB PO PRN; +MIDAZOLAM 2 MG/2 ML VIAL IV PRN; -ONDANSETRON 4 MG/2 ML VIAL IVP ONE; +Pre Op ABX Message 1 EACH MISC MISCELLANE ONE; -TRANEXAMIC ACID IN NACL,ISO-OS 1,000 MG in SALINE 1 100ML.BAG IVPB PRN
[2023-09-20 09:34] VITALS: TEMP 97.1
[2023-09-20 09:48] LABS: Glucose,Whole Blood 132 mg/dL (70-110)
[2023-09-20] MEDS: ACETAMINOPHEN TAB 500 MG TAB PO PRN (09:59)
[2023-09-20] MEDS: HEPARIN SODIUM,PORCINE 5,000 UNIT/ML 1 ML VIAL SQ PRN (09:59)
[2023-09-20] MEDS: DEXAMETHASONE SOD PHOSPHATE 4 MG/ML 1 ML VIAL IV ONE (09:59)
[2023-09-20] MEDS: LACTATED RINGERS 1,000 ML IV SCH (09:59)
[2023-09-20] MEDS: ONDANSETRON 4 MG/2 ML VIAL IVP ONE (09:59)
[2023-09-20] MEDS: IV FLUID CONTINUATION 1,000 ML IV ONE (10:12)
[2023-09-20 10:13] LABS: HCT 42.9 % (39.0-53.0); HGB 13.8 gm/dL (13.0-17.5); MCH 28.8 pg (25.0-35.0); MCHC 32.1 g/dL (31.0-37.0); MCV 89.6 fL (80.0-100.0); Mean Platelet Volume 9.7; Platelet Count 223 k/uL (150-450); RBC 4.79 m/uL (4.30-5.90); RDW 14.2 % (11.5-15.5)
[2023-09-20 10:46] LABS: Basophils # (M) 0.09 k/uL (0-0.2); Eosinophils # (M) 0.18 k/uL (0-0.7); Lymphocytes # (M) 4.59 k/uL (1.0-4.8); Monocytes # (M) 0.81 k/uL (0-1.0); Neutrophils # (M) 3.51 k/uL (1.3-7.7); Neutrophils % (M) 39 %; Nucleated Red Blood Cells 0 /100 WBC (0-0); Total Cells Counted 200
[2023-09-20 10:47] LABS: RBC Morphology Normal
[2023-09-20] MEDS ORDERED: ePHEDrine 50 MG/ML 1 ML VIAL ONE (11:06)
[2023-09-20] MEDS ORDERED: PROPOFOL 10 MG/ML 20 ML VIAL IV ONE (11:06)
[2023-09-20] MEDS ORDERED: PHENYLEPHRINE 10 MG/ML VIAL ONE (11:06)
[2023-09-20] MEDS ORDERED: fentaNYL (PF) 50 MCG/ML 2 ML AMP ONE (11:06)
[2023-09-20] MEDS ORDERED: MIDAZOLAM 2 MG/2 ML VIAL ONE (11:06)
[2023-09-20] MEDS: HEPARIN SODIUM,PORCINE 100 UNIT/ML 5 ML VIAL IV ONE (11:24)
[2023-09-20] MEDS: LIDOCAINE 1%-EPI 1:100,000 20 ML VIAL SQ ONE (11:24)
--- NOTE | 2023-09-20 11:44 | P.GSHP ---
History of Present Illness H&P Date: 09/20/23 Chief Complaint: Lymphocytic leukemia Is a 73-year-old male who was recently diagnosed with lupus and leukemia. Patient is today for Port-A-Cath placement. Past Medical History Past Medical History: Blood Disorder, Cancer, COPD, Diabetes Mellitus, Hyperlipidemia, Hypertension, Thyroid Disorder Additional Past Medical History / Comment(s): Hx pancreatic cancer. 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 "Gets shots in eyes due to Diabetes." History of Any Multi-Drug Resistant Organisms: None Reported Past Surgical History: Joint Replacement Additional Past Surgical History / Comment(s): Right hip replacement, aortic aneurysm repaired, biliary stent placement with revision. Past Anesthesia/Blood Transfusion Reactions: No Reported Reaction Past Psychological History: No Psychological Hx Reported Smoking Status: Former smoker Past Alcohol Use History: None Reported Additional Past Alcohol Use History / Comment(s): Quit smoking over 20 yrs ago. Past Drug Use History: None Reported - Past Family History Father Family Medical History: Cancer Medications and Allergies Home Medications Medication Instructions Recorded Confirmed Type Cholecalciferol [Vitamin D3 (25 50 mcg PO DAILY 10/06/21 09/19/23 History Mcg = 1000 Iu)] Ferrous Sulfate [Iron (65 MG 325 mg PO DAILY 10/06/21 09/19/23 History Elemental)] Pantoprazole [Protonix] 40 mg PO BID 10/06/21 09/19/23 History Insulin Glargine [Lantus Vial] 15 unit SQ QAM 10/07/21 09/19/23 History Doxazosin [Cardura] 4 mg PO QAM 06/19/23 09/19/23 History Levothyroxine Sodium [Synthroid] 50 mcg PO QAM 06/19/23 09/19/23 History Escitalopram [Lexapro] 5 mg PO QAM 09/19/23 09/19/23 History Ezetimibe [Zetia] 10 mg PO QAM 09/19/23 09/19/23 History Allergies Allergy/AdvReac Type Severity Reaction Status Date / Time codeine AdvReac Nausea & Verified 09/19/23 08:58 Vomiting Surgical - Exam Vital Signs Temp Pulse Resp BP Pulse Ox 97.1 F L 77 18 145/71 93 L 09/20/23 09:25 09/20/23 09:25 09/20/23 09:25 09/20/23 09:25 09/20/23 09:25 - General well developed, well nourished, no distress - Eyes PERRL - ENT normal pinna - Neck no masses - Respiratory normal expansion - Cardiovascular Rhythm: regular - Abdomen Abdomen: soft, non tender Results - Labs 09/20/23 09:45 Abnormal Lab Results - Last 24 Hours (Table) 09/20/23 Range/Units 09:43 POC Glucose (mg/dL) 132 H (70-110) mg/dL Assessment and Plan Assessment: History of lymphocytic leukemia. Patient will have right subclavian Port-A-Cath placed.
--- NOTE | 2023-09-20 11:45 | P.OP ---
Date of Procedure: 09/20/23 Preoperative Diagnosis: Lymphocytic leukemia Postoperative Diagnosis: Lymphocytic leukemia Procedure(s) Performed: Right subclavian Port-A-Cath Anesthesia: MAC Surgeon: Ramon Coates Pathology: none sent Condition: stable Disposition: PACU Description of Procedure: The patient was placed on the operating table in the supine position. The patient received IV sedation. The patient's chest was prepped and draped in the usual sterile fashion. A roll had been placed between the shoulder blades in a longitudinal fashion. After prepping and draping the skin was anesthetized 1% local Xylocaine. And then using the Seldinger technique the subclavian vein was cannulated. A wire was placed into the vein and fluoroscopy position the wire at the atrial caval junction. Next the dilator sheath was placed over top the wire and the wire was withdrawn. The catheter was positioned at the atriocaval position. The catheter was placed through the sheath after the dilator was withdrawn. The sheath was then withdrawn. Position of the catheter was confirmed with fluoroscopy. The Port-A-Cath was connected to the catheter. The Port-A-Cath was flushed with saline and then heparinized saline. The skin was closed interrupted 3-0 Monocryl suture. Dermabond was applied. Patient tolerated procedure well and was sent to recovery room stable condition.
--- NOTE | 2023-09-20 12:01 | FL ---
EXAMINATION TYPE: FL guided central line placemt HISTORY: Fluoroscopy time Impression: 1. Fluoroscopy support provided to the referring physician.
[2023-09-20 12:02] VITALS: RESP 16
--- NOTE | 2023-09-20 12:13 | XR ---
EXAMINATION TYPE: XR chest 1V portable DATE OF EXAM: 09/20/2023 COMPARISON: 12/31/2010 HISTORY: Postop TECHNIQUE: Single frontal view of the chest is obtained. FINDINGS: There is no focal air space opacity, pleural effusion, or pneumothorax seen. The cardiac silhouette size is within normal limits. The osseous structures are intact. Emphysematous changes a re seen within the areas of linear scarring or atelectasis involving the left lung. Mediport catheter in good position with the tip overlying the SVC. No pneumothorax. IMPRESSION: 1. Mediport in good position with tip overlying SVC and no pneumothorax.
[2023-09-20 12:18] VITALS: BP 116/70; PULSE 72
== END 2023-09-20 12:35 | disposition home or self-care (01) ==
LOC: OR 08:59
PROVIDERS: ATTEND Surgery
DX: J44.9 Chronic obstructive pulmonary disease, unspecified (principal); E11.9 Type 2 diabetes mellitus without complications; I10 Essential (primary) hypertension; E78.5 Hyperlipidemia, unspecified; E03.9 Hypothyroidism, unspecified; Z85.07 Personal history of malignant neoplasm of pancreas; Z45.2 Encounter for adjustment and management of vascular access device; Z96.641 Presence of right artificial hip joint; Z87.891 Personal history of nicotine dependence; Z86.59 Personal history of other mental and behavioral disorders; Z88.5 Allergy status to narcotic agent; Z79.890 Hormone replacement therapy; Z79.1 Long term (current) use of non-steroidal anti-inflammatories (NSAID); Z79.4 Long term (current) use of insulin; Z79.83 Long term (current) use of bisphosphonates; Z79.899 Other long term (current) drug therapy; Z79.02 Long term (current) use of antithrombotics/antiplatelets
CPT/HCPCS: 85025; 77001; 71045; 36561; C1788; J2250; J1644; J1642; J1100; J2405; J3010; J2704; J2371

== ENCOUNTER 2023-10-06 20:22 | Emergency (ER) | payer OTHER | END 2023-10-06 22:10 | disposition home or self-care (01) | LOC: EC 20:22 | CPT/HCPCS: 99283 ==

== ENCOUNTER 2023-12-10 18:09 | Observation (INO) | payer MEDICARE, OTHER ==
--- NOTE | 2023-12-10 18:42 | ED ---
Nausea/Vomiting/Diarrhea HPI - General Chief complaint: Nausea/Vomiting/Diarrhea Stated complaint: NVD Time Seen by Provider: 12/10/23 18:27 Source: patient Mode of arrival: ambulatory Limitations: no limitations - History of Present Illness Initial comments: This patient is a 73-year-old man who presents to evaluation of vomiting and diarrhea. Patient states he has been having symptoms over the past 1 to 2 days. He states that he received his chemotherapy the day prior to onset of symptoms. He is being treated for pancreatic cancer with chemotherapy. He has completed 4 rounds of treatment now. The patient has not noted any fever. He denies abdominal pain. He is having multiple yellow, watery stools per day. He had an episode of vomiting. He has not noted blood or dark stools. No hematemesis. MD complaint: nausea, vomiting, diarrhea Onset/Timin -: days(s) Description of Vomiting: watery Description of Diarrhea: water Associated Abdominal Pain: No Severity scale (1-10): 0 Consistency: constant Improves with: none Worsens with: none Associated Symptoms: weakness - Related Data Home Medications Medication Instructions Recorded Confirmed Cholecalciferol [Vitamin D3 (25 50 mcg PO DAILY 10/06/21 12/11/23 Mcg = 1000 Iu)] Ferrous Sulfate [Iron (65 MG 325 mg PO DAILY 10/06/21 12/11/23 Elemental)] Insulin Glargine [Lantus Vial] 15 unit SQ DAILY 10/07/21 12/11/23 Levothyroxine Sodium [Synthroid] 50 mcg PO DAILY 06/19/23 12/11/23 Ezetimibe [Zetia] 10 mg PO DAILY 09/19/23 12/11/23 Escitalopram [Lexapro] 10 mg PO DAILY 12/11/23 12/11/23 atenoloL [Tenormin] 25 mg PO DAILY 12/11/23 12/11/23 Previous Rx's Medication Instructions Recorded Loperamide [Imodium] 2 mg PO BID PRN 3 Days #6 cap 12/12/23 Allergies Allergy/AdvReac Type Severity Reaction Status Date / Time codeine AdvReac Nausea & Verified 12/10/23 18:14 Vomiting Review of Systems ROS Statement: Those systems with pertinent positive or pertinent negative responses have been documented in the HPI. ROS Other: All systems not noted in ROS Statement are negative. Constitutional: Reports: weakness. Denies: fever, chills Respiratory: Denies: cough, dyspnea Cardiovascular: Denies: chest pain, palpitations Gastrointestinal: Reports: nausea, vomiting, diarrhea. Denies: abdominal pain, hematemesis, melena, hematochezia Genitourinary: Denies: dysuria, hematuria Musculoskeletal: Denies: back pain Skin: Denies: rash Neurological: Denies: headache, weakness, numbness Past Medical History Past Medical History: Blood Disorder, Cancer, COPD, Diabetes Mellitus, Hyperlipidemia, Hypertension, Thyroid Disorder Additional Past Medical History / Comment(s): Hx pancreatic cancer. 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 "Gets shots in eyes due to Diabetes." History of Any Multi-Drug Resistant Organisms: None Reported Past Surgical History: Joint Replacement Additional Past Surgical History / Comment(s): Right hip replacement, aortic aneurysm repaired, biliary stent placement with revision. Past Anesthesia/Blood Transfusion Reactions: No Reported Reaction Past Psychological History: No Psychological Hx Reported Smoking Status: Former smoker Past Alcohol Use History: None Reported Past Drug Use History: None Reported - Past Family History Father Family Medical History: Cancer General Exam Limitations: no limitations General appearance: alert, in no apparent distress Head exam: Present: atraumatic, normocephalic Eye exam: Present: normal appearance. Absent: scleral icterus, conjunctival injection ENT exam: Present: mucous membranes dry Neck exam: Present: normal inspection Respiratory exam: Present: normal lung sounds bilaterally. Absent: respiratory distress, wheezes, rales, rhonchi, stridor, accessory muscle use Cardiovascular Exam: Present: regular rate, normal rhythm, normal heart sounds. Absent: systolic murmur, diastolic murmur, rubs, gallop GI/Abdominal exam: Present: soft. Absent: distended, tenderness, guarding, rebound, rigid, mass, pulsatile mass Extremities exam: Present: normal inspection, normal capillary refill. Absent: pedal edema, calf tenderness Back exam: Present: normal inspection. Absent: CVA tenderness (R), CVA tenderness (L) Neurological exam: Present: alert Skin exam: Present: warm, dry, intact, normal color. Absent: rash Course Vital Signs 12/10/23 12/10/23 12/10/23 18:14 19:28 23:38 Temperature 97.7 F Pulse Rate 77 67 79 Respiratory 18 16 16 Rate Blood Pressure 128/73 114/73 137/69 O2 Sat by Pulse 98 92 L 98 Oximetry 12/11/23 12/11/23 03:15 07:05 Temperature Pulse Rate 61 72 Respiratory 14 18 Rate Blood Pressure 128/68 134/88 O2 Sat by Pulse 95 95 Oximetry Medical Decision Making - Medical Decision Making The patient had CT scan of the abdomen and pelvis that I interpreted as negative for free air, there is some bowel distention consistent with ileus versus developing bowel obstruction. Was pt. sent in by a medical professional or institution (, PA, MIRROR INSTALLER, urgent care, hospital, or senior care...) When possible be specific @ -[No] Did you speak to anyone other than the patient for history (EMS, parent, family, police, friend...)? What history was obtained from this source @ -[No] Did you review nursing and triage notes (agree or disagree)? Why? @ -[I reviewed and agree with nursing and triage notes] Were old charts reviewed (outside hosp., previous admission, EMS record, old EKG, old radiological studies, urgent care reports/EKG's, senior care records)? Report findings @ -[No old charts were reviewed] Differential Diagnosis (chest pain, altered mental status, abdominal pain women, abdominal pain men, vaginal bleeding, weakness, fever, dyspnea, syncope, headache, dizziness, GI bleed, back pain, seizure, CVA, palpatations, mental health, musculoskeletal)? @ -[Differential Abdominal Pain Men: Appendicitis, cholecystitis, diverticulosis, ischemic bowel, pancreatitis, hepatitis, UTI, gastroenteritis, AAA, incarcerated hernia, bowel obstruction, constipation, inflammatory bowel, hepatitis, peptic ulcer disease, splenic infarction, perforated viscus, testicular torsion, this is not meant to be an all-inclusive list EKG interpreted by me (3pts min.). @ -[As above] X-rays interpreted by me (1pt min.). @ -[None done] CT interpreted by me (1pt min.). @ -[I interpreted as above U/S interpreted by me (1pt. min.). @ -[None done] What testing was considered but not performed or refused? (CT, X-rays, U/S, labs)? Why? @ -[None] What meds were considered but not given or refused? Why? @ -[None] Did you discuss the management of the patient with other professionals (professionals i.e. Dr., PA, MIRROR INSTALLER, lab, RT, psych nurse, social services coordinator, bone plant supervisor, teacher, correction officer supervisor, heel caser)? Give summary @ -[Case discussed with admitting physician and treatment recommendations incorporated Was smoking cessation discussed for >3mins.? @ -[No] Was critical care preformed (if so, how long)? @ -[No] Were there social determinants of health that impacted care today? How? (Homelessness, low income, unemployed, alcoholism, drug addiction, transportation, low edu. Level, literacy, decrease access to med. care, long-term, rehab)? @ -[No] Was there de-escalation of care discussed even if they declined (Discuss DNR or withdrawal of care, Hospice)? DNR status @ -[No] What co-morbidities impacted this encounter? (DM, HTN, Smoking, COPD, CAD, Cancer, CVA, ARF, Chemo, Hep., AIDS, mental health diagnosis, sleep apnea, morbid obesity)? @ -[Cancer with current chemotherapy Was patient admitted / discharged? Hospital course, mention meds given and route, prescriptions, significant lab abnormalities, going to OR and other pertinent info. @ -[Patient is 73-year-old man presenting with nausea and vomiting. Patient is active chemotherapy patient. The workup shows probable ileus versus developing small bowel obstruction and patient will be admitted to have additional hydration and treatment Undiagnosed new problem with uncertain prognosis? @ -[No] Drug Therapy requiring intensive monitoring for toxicity (Heparin, Nitro, Insulin, Cardizem)? @ -[No] Were any procedures done? @ -[No] Diagnosis/symptom? @ -[Acute abdominal pain Acute nausea and vomiting Ileus versus small bowel obstruction Acute, or Chronic, or Acute on Chronic? @ -[Acute Uncomplicated (without systemic symptoms) or Complicated (systemic symptoms)? @ -Uncomplicated Side effects of treatment? @ -[No] Exacerbation, Progression, or Severe Exacerbation? @ -[No] Poses a threat to life or bodily function? How? (Chest pain, USA, CT, pneumonia, PE, COPD, DKA, ARF, appy, cholecystitis, CVA, Diverticulitis, Homicidal, Suicidal, threat to staff... and all critical care pts) @ -[Yes condition may progress to bowel obstruction - Lab Data Result diagrams: 12/12/23 04:11 12/12/23 04:11 Lab Results 12/10/23 12/10/23 12/10/23 Range/Units 18:49 18:49 18:49 WBC 27.4 H (3.8-10.6) k/uL RBC 4.23 L (4.30-5.90) m/uL Hgb 12.7 L (13.0-17.5) gm/dL Hct 37.1 L (39.0-53.0) % MCV 87.8 (80.0-100.0) fL MCH 30.1 (25.0-35.0) pg MCHC 34.2 (31.0-37.0) g/dL RDW 17.4 H (11.5-15.5) % Plt Count 80 L (150-450) k/uL MPV 10.3 Neutrophils % (Manual) 67 % Band Neuts % (Manual) 6 % Lymphocytes % (Manual) 27 % Neutrophils # (Manual) 20.00 H (1.3-7.7) k/uL Lymphocytes # (Manual) 7.40 H (1.0-4.8) k/uL Nucleated RBCs 0 (0-0) /100 WBC Manual Slide Review Performed Anisocytosis Slight Sodium 134 L (137-145) mmol/L Potassium 4.1 (3.5-5.1) mmol/L Chloride 103 (98-107) mmol/L Carbon Dioxide 25 (22-30) mmol/L Anion Gap 6 mmol/L BUN 21 H (9-20) mg/dL Creatinine 0.67 (0.66-1.25) mg/dL Est GFR (CKD-EPI)AfAm >90 (>60 ml/min/1.73 sqM) Est GFR (CKD-EPI)NonAf >90 (>60 ml/min/1.73 sqM) Glucose 109 H (74-99) mg/dL Plasma Lactic Acid Lionel 2.0 (0.7-2.0) mmol/L Calcium 8.7 (8.4-10.2) mg/dL Magnesium 1.7 (1.6-2.3) mg/dL Total Bilirubin 0.6 (0.2-1.3) mg/dL AST 44 (17-59) U/L ALT 31 (4-49) U/L Alkaline Phosphatase 222 H (38-126) U/L C-Reactive Protein 0.9 (<1.0) mg/dL Total Protein 6.2 L (6.3-8.2) g/dL Albumin 3.8 (3.5-5.0) g/dL Urine Color Urine Appearance (Clear) Urine pH (5.0-8.0) Ur Specific [place] (1.001-1.035) Urine Protein (Negative) Urine Glucose (UA) (Negative) Urine Ketones (Negative) Urine Blood (Negative) Urine Nitrite (Negative) Urine Bilirubin (Negative) Urine Urobilinogen (<2.0) mg/dL Ur Leukocyte Esterase (Negative) Urine RBC (0-5) /hpf Urine WBC (0-5) /hpf Ur Squamous Epith Cells (0-4) /hpf Urine Bacteria (None) /hpf Hyaline Casts (0-2) /lpf Urine Mucus (None) /hpf Stool Lactoferrin (Negative) C. difficile (EIA) Intrp (Negative) 12/10/23 12/10/23 12/10/23 Range/Units 21:50 21:50 21:50 WBC (3.8-10.6) k/uL RBC (4.30-5.90) m/uL Hgb (13.0-17.5) gm/dL Hct (39.0-53.0) % MCV (80.0-100.0) fL MCH (25.0-35.0) pg MCHC (31.0-37.0) g/dL RDW (11.5-15.5) % Plt Count (150-450) k/uL MPV Neutrophils % (Manual) % Band Neuts % (Manual) % Lymphocytes % (Manual) % Neutrophils # (Manual) (1.3-7.7) k/uL Lymphocytes # (Manual) (1.0-4.8) k/uL Nucleated RBCs (0-0) /100 WBC Manual Slide Review Anisocytosis Sodium (137-145) mmol/L Potassium (3.5-5.1) mmol/L Chloride (98-107) mmol/L Carbon Dioxide (22-30) mmol/L Anion Gap mmol/L BUN (9-20) mg/dL Creatinine (0.66-1.25) mg/dL Est GFR (CKD-EPI)AfAm (>60 ml/min/1.73 sqM) Est GFR (CKD-EPI)NonAf (>60 ml/min/1.73 sqM) Glucose (74-99) mg/dL Plasma Lactic Acid Lionel (0.7-2.0) mmol/L Calcium (8.4-10.2) mg/dL Magnesium (1.6-2.3) mg/dL Total Bilirubin (0.2-1.3) mg/dL AST (17-59) U/L ALT (4-49) U/L Alkaline Phosphatase (38-126) U/L C-Reactive Protein (<1.0) mg/dL Total Protein (6.3-8.2) g/dL Albumin (3.5-5.0) g/dL Urine Color Yellow Urine Appearance Cloudy (Clear) Urine pH 5.5 (5.0-8.0) Ur Specific [place] 1.025 (1.001-1.035) Urine Protein Trace H (Negative) Urine Glucose (UA) Negative (Negative) Urine Ketones Negative (Negative) Urine Blood Negative (Negative) Urine Nitrite Negative (Negative) Urine Bilirubin Negative (Negative) Urine Urobilinogen <2.0 (<2.0) mg/dL Ur Leukocyte Esterase Negative (Negative) Urine RBC <1 (0-5) /hpf Urine WBC 3 (0-5) /hpf Ur Squamous Epith Cells 2 (0-4) /hpf Urine Bacteria Rare H (None) /hpf Hyaline Casts 9 H (0-2) /lpf Urine Mucus Moderate H (None) /hpf Stool Lactoferrin Positive A (Negative) C. difficile (EIA) Intrp Negative (Negative) - EKG Data -: EKG Interpreted by [facility] EKG shows normal: sinus rhythm, axis (Normal), intervals (Normal), QRS complexes (Normal), ST-T waves ( normal) Rate: normal (Rate 68 bpm) Interpretation: normal EKG Disposition Clinical Impression: Nausea & vomiting, Ileus, Leukocytosis Disposition: ADMITTED IP TO THIS [facility] Condition: Fair Is patient prescribed a controlled substance at d/c from ED?: No
[2023-12-10] MEDS: SODIUM CHLORIDE 0.9% 500 ML 500 ML IV STA (18:57)
[2023-12-10] MEDS: ONDANSETRON 4 MG/2 ML VIAL IVP STA (18:57)
[2023-12-10] MEDS: SODIUM CHLORIDE 0.9% 1,000 ML IV STA (18:57)
[2023-12-10 19:30] LABS: Anisocytosis Slight; HCT 37.1 % (39.0-53.0); HGB 12.7 gm/dL (13.0-17.5); MCH 30.1 pg (25.0-35.0); MCHC 34.2 g/dL (31.0-37.0); MCV 87.8 fL (80.0-100.0); Mean Platelet Volume 10.3; RBC 4.23 m/uL (4.30-5.90); RDW 17.4 % (11.5-15.5); WBC 27.4 k/uL (3.8-10.6)
[2023-12-10 19:37] LABS: ALT 31 U/L (4-49); AST 44 U/L (17-59); African American GFR (CKD) >90 (>60 ml/min/1.73 sqM); Albumin 3.8 g/dL (3.5-5.0); Alkaline Phosphatase 222 U/L (38-126); Anion Gap 6 mmol/L; Blood Urea Nitrogen 21 mg/dL (9-20); C Reactive Protein 0.9 mg/dL (<1.0); Calcium 8.7 mg/dL (8.4-10.2); Carbon Dioxide 25 mmol/L (22-30); Chloride 103 mmol/L (98-107); Glucose 109 mg/dL (74-99); Magnesium 1.7 mg/dL (1.6-2.3); Non-African American GFR(CKD) >90 (>60 ml/min/1.73 sqM); Potassium 4.1 mmol/L (3.5-5.1); Sodium 134 mmol/L (137-145); Total Bilirubin 0.6 mg/dL (0.2-1.3); Total Protein 6.2 g/dL (6.3-8.2)
[2023-12-10 20:05] LABS: Band Neutrophils % 6 %; Neutrophils % (M) 67 %; Nucleated Red Blood Cells 0 /100 WBC (0-0); Total Cells Counted 100
[2023-12-10 20:06] LABS: Platelet Count 80 k/uL (150-450)
--- NOTE | 2023-12-10 21:52 | CT ---
EXAMINATION TYPE: CT abdomen pelvis wo con DATE OF EXAM: 12/10/2023 COMPARISON: PET/CT 07/17/2023 INDICATION: Pt c/o n/v/d and anorexia since last chemo treatment 2-3 days ago. DLP: 511.6 mGycm, Automated exposure control for dose reduction was used. CONTRAST: 0 mL of Isovue 300. Study performed without Oral Contrast TECHNIQUE: Axial images were obtained from above the diaphragm to the pubic rami in the axial plane a t 5 mm thick sections. Reconstructed images are reviewed on the computer in the coronal plane. FINDINGS: Limited CT sections are obtained the lung bases. The lung bases are clear. Emphysematous changes ar e present. CT ABDOMEN: Liver: Small amount of biliary air is present centrally. Note is made of a stent within the common bi le duct extending through the head of the pancreas. Spleen: Normal Pancreas: Atrophic. A stent is in the head of the pancreas. Focal neoplasm not identified Adrenal glands: The adrenal glands are normal. Gallbladder: Tiny amount of air may be within the nondependent gallbladder. This could be related to the common bile duct stent or air within a small noncalcified gallstone. Kidneys: No masses are evident. No hydronephrosis is present. There is a 5.1 cm cyst on the posteri or upper pole left kidney. No renal stones are evident. Aorta: Vascular calcification is within the aorta. Inferior vena cava: Normal. CT PELVIS: There is diastases of the rectus abdominis muscles over the mid pelvis, series 201 image 7 8. No herniation is identified. Some mesenteric fat herniation in this region may be present. Loops of bowel within the abdomen and pelvis are normal. Some fluid is within loops of bowel. Loo ps of bowel are nondilated. Appendix: Not identified. No dilated tubular structure or inflammatory changes. Urinary bladder: Normal. Genitourinary structures: Prostate appears slightly prominent. Osseous structures: No suspicious lytic or sclerotic lesions. There is a right hip prosthesis. This c auses some limitation of the lower pelvis. Degenerative disc changes within the L5-S1 level IMPRESSION: 1. No acute suspicious changes within the abdomen and pelvis. 2. Mild ileus may be present without evidence of obstruction. [facility], Workstation: [facility], 12/10/2023 9:50 PM
[2023-12-10 22:27] LABS: Appearance,Urine Cloudy (Clear); Bacteria,Urine Rare /hpf; Bilirubin,Urine Negative (Negative); Blood,Urine Negative (Negative); Color,Urine Yellow; Glucose,Urine (UA) Negative (Negative); Hyaline Casts,Urine 9 /lpf (0-2); Ketones,Urine Negative (Negative); Leukocyte Esterase,Urine Negative (Negative); Mucus,Urine Moderate /hpf; Nitrite,Urine Negative (Negative); PH, Urine 5.5 (5.0-8.0); Protein,Urine Trace (Negative); RBC,Urine <1 /hpf (0-5); Specific Gravity,Urine 1.025 (1.001-1.035); Squamous Epithelial Cell,Urine 2 /hpf (0-4); Urobilinogen,Urine <2.0 mg/dL (<2.0); WBC,Urine 3 /hpf (0-5)
[2023-12-11] MEDS ORDERED: ONDANSETRON 4 MG/2 ML VIAL IVP PRN (00:56)
[2023-12-11] MEDS ORDERED: NALOXONE 0.4 MG/ML 1 ML VIAL IV PRN (00:56)
--- NOTE | 2023-12-11 01:02 | P.HPIM ---
History of Present Illness H&P Date: 12/10/23 Chief Complaint: diarrhea Chief Complaint "Well, I was having chemo treatments, and the last two gave me diarrhea and chills, and they wouldn't stop, so I came in here." History of Present Illness (HPI) Agusto is a 73-year-old male with a history of colon cancer that has spread to the base of the pancreas. He reports experiencing harsh diarrhea and chills after his last two chemotherapy treatments, which he believes started 3-4 days ago after receiving chemotherapy last week. This treatment parker his sixth round of chemotherapy, and he has experienced diarrhea consistently after each session. Agusto reported using [id number] medications for diarrhea, but this time they did not help. He denies any abdominal pain, fever, or blood in his stool but has been feeling nauseous, leading to vomiting. He has not been able to keep anything down and came to the hospital to avoid dehydration. He denies any recent travel or exposure to unsanitary food. He has a history of diabetes and high blood pressure and claims that the chemotherapy is likely the cause of his current symptoms. His daily activities, particularly eating and drinking, are impacted due to the nausea and diarrhea. Medical History Colon cancer diagnosed years ago. Diabetes mellitus. Hypertension. History of liver blockage found during treatment and diagnosis of cancer. Social History Agusto lives alone but has his daughter visiting him. He claims that he manages all activities of daily living independently. He denies any use of tobacco, alcohol, or illicit drugs. Review of Systems (ROS) Constitutional - chills present. Gastrointestinal - diarrhea described as excessive and frequent, denies blood in stool or severe pain, and reports nausea and vomiting. Denies any symptoms of respiratory distress or urinary burning. No significant concerns in other systems reported. Physical Examination on exam Constitutional: No acute distress, conversant, pleasant Eyes: Anicteric sclerae, moist conjunctiva, Pupils equal round reactive to light ENMT: NC/AT Oropharynx clear, no erythema, or exudates, dry mucus membranes Lungs: Clear to auscultation Clear to percussion Normal respiratory effort, no accessory muscle use Cardiovascular: Heart regular in rate and rhythm, No murmurs, gallops, or rubs No peripheral edema Abdominal: Soft Nontender, no guarding, rebound or rigidity Abdomen moving with respiration Normoactive bowel sounds Extremities: No digital cyanosis No clubbing Pedal pulses intact and symmetrical Radial pulses intact and symmetrical No calf tenderness Psychiatric: Alert and oriented to person, place and time Appropriate affect fair judgement Neuro Muscles Strength 5/5 in all 4 extremities Sensation to light touch grossly present throughout Cranial nerves II-XII grossly intact Past Medical History Past Medical History: Blood Disorder, Cancer, COPD, Diabetes Mellitus, Hyperlipidemia, Hypertension, Thyroid Disorder Additional Past Medical History / Comment(s): Hx pancreatic cancer. 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 "Gets shots in eyes due to Diabetes." History of Any Multi-Drug Resistant Organisms: None Reported Past Surgical History: Joint Replacement Additional Past Surgical History / Comment(s): Right hip replacement, aortic aneurysm repaired, biliary stent placement with revision. Past Anesthesia/Blood Transfusion Reactions: No Reported Reaction Past Psychological History: No Psychological Hx Reported Smoking Status: Former smoker Past Alcohol Use History: None Reported Past Drug Use History: None Reported - Past Family History Father Family Medical History: Cancer Medications and Allergies Home Medications Medication Instructions Recorded Confirmed Type Cholecalciferol [Vitamin D3 (25 50 mcg PO DAILY 10/06/21 09/19/23 History Mcg = 1000 Iu)] Ferrous Sulfate [Iron (65 MG 325 mg PO DAILY 10/06/21 09/19/23 History Elemental)] Pantoprazole [Protonix] 40 mg PO BID 10/06/21 09/19/23 History Insulin Glargine [Lantus Vial] 15 unit SQ QAM 10/07/21 09/19/23 History Doxazosin [Cardura] 4 mg PO QAM 06/19/23 09/19/23 History Levothyroxine Sodium [Synthroid] 50 mcg PO QAM 06/19/23 09/19/23 History Escitalopram [Lexapro] 5 mg PO QAM 09/19/23 09/19/23 History Ezetimibe [Zetia] 10 mg PO QAM 09/19/23 09/19/23 History Allergies Allergy/AdvReac Type Severity Reaction Status Date / Time codeine AdvReac Nausea & Verified 12/10/23 18:14 Vomiting Physical Exam Vitals: Vital Signs Temp Pulse Resp BP Pulse Ox 12/10/23 23:38 79 16 137/69 98 12/10/23 19:28 67 16 114/73 92 L 12/10/23 18:14 97.7 F 77 18 128/73 98 Intake and Output 12/10/23 12/10/23 12/11/23 14:59 22:59 06:59 Other: Weight 68.039 kg Results CBC & Chem 7: 12/10/23 18:49 12/10/23 18:49 Labs: Abnormal Lab Results - Last 24 Hours (Table) 12/10/23 12/10/23 12/10/23 Range/Units 18:49 18:49 21:50 WBC 27.4 H (3.8-10.6) k/uL RBC 4.23 L (4.30-5.90) m/uL Hgb 12.7 L (13.0-17.5) gm/dL Hct 37.1 L (39.0-53.0) % RDW 17.4 H (11.5-15.5) % Plt Count 80 L (150-450) k/uL Neutrophils # (Manual) 20.00 H (1.3-7.7) k/uL Lymphocytes # (Manual) 7.40 H (1.0-4.8) k/uL Sodium 134 L (137-145) mmol/L BUN 21 H (9-20) mg/dL Glucose 109 H (74-99) mg/dL Alkaline Phosphatase 222 H (38-126) U/L Total Protein 6.2 L (6.3-8.2) g/dL Urine Protein Trace H (Negative) Urine Bacteria Rare H (None) /hpf Hyaline Casts 9 H (0-2) /lpf Urine Mucus Moderate H (None) /hpf Assessment and Plan Assessment: 73-year-old male with pancreatic cancer on chemotherapy, coming in with refractory diarrhea with nausea vomiting postchemotherapy I discussed case with ED doctor and accepted the admission for refractory nausea vomiting and diarrhea secondary to suspected chemotherapy side effect with anticipated length of stay less than 2 midnights Refractory nausea vomiting and diarrhea Rule out infectious diarrhea Laboratory tests indicated a high white blood cell count, with CT imaging suggesting an ileus No signs of blockage were reported Afebrile Supportive care Symptomatic control nausea vomiting IV fluid hydration normal saline 100 cc/h, status post 1 L bolus Check C. difficile If no infectious causes of diarrhea, will start Imodium Urinalysis unremarkable Diabetes mellitus Insulin sliding scale Hypothyroid Resume levothyroxine Low platelet count is 80 Renal function unremarkable BUN 21 creatinine 0.6 sodium 134 potassium 4.1 CRP 0.9 Full code DVT prophylaxis mechanical secondary to thrombocytopenia
[2023-12-11] MEDS ORDERED: DEXTROSE 50% SYRINGE 50 ML IVP PRN ×2 (01:10)
[2023-12-11] MEDS: SODIUM CHLORIDE 0.9% 1,000 ML IV SCH (01:10)
[2023-12-11 01:41] LABS: Glucose,Whole Blood 87 mg/dL (70-110)
[2023-12-11] MEDS: LEVOTHYROXINE 50 MCG TAB PO SCH (06:42)
[2023-12-11 06:57] LABS: Glucose,Whole Blood 83 mg/dL (70-110)
[2023-12-11] MEDS: INSULIN ASPART (NovoLOG) 100 UNIT/ML VIAL SQ SCH (08:04)
[2023-12-11] MEDS: CHOLECALCIFEROL 25 MCG (1000 IU) TABLET PO SCH (08:57)
[2023-12-11] MEDS: PANTOPRAZOLE 40 MG TABLET PO SCH (08:57)
[2023-12-11] MEDS ORDERED: DIPHENOX-ATROP 2.5-0.025 MG 1 EACH TAB PO PRN (08:58)
[2023-12-11] MEDS: EZETIMIBE 10 MG TAB PO SCH (08:58)
[2023-12-11] MEDS: DOXAZOSIN 4 MG TAB PO SCH (08:58)
--- NOTE | 2023-12-11 11:46 | P.PN ---
Subjective Progress Note Date: 12/11/23 73 year old M with PMH of Colon CA with mets to the pancreas, DM, Depression, Hypothyroidism, BPH presents to the ED for intractable diarrhea related to his chemotherapy. He also reported chills, nausea and vomiting. This has led to decreased appetite. In the ED he underwent extensive evaluation. BP 128/73, HR 77, RR 18, T 97.7F, 98% on RA. CBC, CMP significant for WBC 27.4, RBC 4.23, Hg 12.7, Hct 37.1, Plt 80, Na 134, BUN 21, glu 109, alk phos 222. Mag 1.7. CRP 0.9. UA neg LE or nitrite. C.diff neg. CT AP no acute finding with possible mild ileus. Patient is admitted for further workup and management. 12/10 Patient reports 2 watery bowel movements since waking up. Tolerating CLD well would like to try solid food. No nausea or vomiting. No abdominal pain. General: non toxic, no distress, appears at stated age Derm: warm, dry Head: atraumatic, normocephalic, symmetric Eyes: EOMI, no lid lag, anicteric sclera Mouth: no lip lesion, mucus membranes moist Cardiovascular: S1 S2 reg. No murmurs, rubs, gallops Lungs: Clear to auscultation bilaterally, no accessory muscle use Ext: no gross muscle atrophy, no edema, no contractures Neuro: no focal neuro deficits Psych: Alert, oriented, appropriate affect Based on my assessment of this patient, this patient meets a high complexity level of care. Intractable diarrhea: Likely due to chemotherapy. C. diff negative. Imodium and Lomotil PRN for diarrhea. Zofran 4 mg IV TID PRN N/V. NS at 75 cc/hr. Obtain Stool CX, Lactoferrin. Follow BCx. Leukocytosis: Possibly related to chemotherapy. No signs of active infection. Monitor fever profile. Normocytic anemia and Thrombocytopenia: Appears at baseline. Likely related to underlying malignancy and chemotherapy. No signs of active bleeding. Monitor. Diabetes mellitus: ISS. Accuchecks ACHS. Hypoglycemic precautions. Depression: Lexapro 5 mg PO QD. BPH: Doxazosin 4 mg PO QD. HLD: Zetia 10 mg PO QD. Hypothyroidism: Synthroid 50 mcg PO QD. CODE STATUS: FULL CODE DVT Prophylaxis: SCD GI Prophylaxis: Designated medical POA if patient is not able to make medical decisions for themselves: I have reviewed the following surgical consultant notes: I have reviewed the results of the following tests: I have ordered the following tests: CBC and BMP tomorrow AM. I have discussed the care of this patient with the following independent historian: Family member at bedside. I have independently interpreted the following test below: I have discussed the management of this patient with the following physician: Objective - Vital Signs Vital signs: Vital Signs Temp 97.9 F 12/11/23 08:00 Pulse 58 L 12/11/23 08:00 Resp 18 12/11/23 08:00 BP 145/76 12/11/23 08:00 Pulse Ox 95 12/11/23 08:00 FiO2 Intake & Output 12/10/23 12/11/23 12/11/23 18:59 06:59 18:59 Intake Total 580 Balance 580 Weight 68.039 kg 68.039 kg Intake: Oral 580 Other: Voiding Method Toilet - Labs CBC & Chem 7: 12/10/23 18:49 12/10/23 18:49 Labs: Abnormal Lab Results - Last 24 Hours (Table) 12/10/23 12/10/23 12/10/23 Range/Units 18:49 18:49 21:50 WBC 27.4 H (3.8-10.6) k/uL RBC 4.23 L (4.30-5.90) m/uL Hgb 12.7 L (13.0-17.5) gm/dL Hct 37.1 L (39.0-53.0) % RDW 17.4 H (11.5-15.5) % Plt Count 80 L (150-450) k/uL Neutrophils # (Manual) 20.00 H (1.3-7.7) k/uL Lymphocytes # (Manual) 7.40 H (1.0-4.8) k/uL Sodium 134 L (137-145) mmol/L BUN 21 H (9-20) mg/dL Glucose 109 H (74-99) mg/dL Alkaline Phosphatase 222 H (38-126) U/L Total Protein 6.2 L (6.3-8.2) g/dL Urine Protein Trace H (Negative) Urine Bacteria Rare H (None) /hpf Hyaline Casts 9 H (0-2) /lpf Urine Mucus Moderate H (None) /hpf
[2023-12-11 12:56] LABS: Glucose,Whole Blood 101 mg/dL (70-110)
[2023-12-11] MEDS: LOPERAMIDE 2 MG CAP PO PRN (13:20)
[2023-12-11 17:24] LABS: Glucose,Whole Blood 130 mg/dL (70-110)
--- NOTE | 2023-12-11 19:17 | P.CONS ---
History of Present Illness - Reason for Consult Consult date: 12/11/23 pancreatic adenocarcinoma, on treatment Requesting physician: Mesfin Dewey - Chief Complaint Vomiting, diarrhea - History of Present Illness Mr Paz is a male pt of Dr. Kay who was initially seen by Hem/Onc as a referral for elevation of WBC, specifically absolute lymphocyte count. 07/17, lymphocyte percentage was 70.8 with neutrophil percentage is 20.4. Absolute lym phocyte count was 6.5. Other CBC indices were normal. In 12/17 hemoglobin was 12.5 and WBC 14.3, and platelets 138. Lymphocyte percentage was 61%. PSA was normal with testosterone low at 24.3. Chem panel did not show any major anomalies. Pt had no constitutional symptoms. Additional labs confirmed a monoclonal CD5 positive population consistent with CLL/SLL. Baseline immunoglobulin levels were normal. CBC showed total WBC in the 12 range, with absolute lymphocyte count in the 7000 range so, pt was placed on observation. He did not follow-up in the office after 12/18. He came back in 07/20 for a new diagnosis. Pt presented to [facility] ER 06/20 complaining of jaundice and puritis that had developed over the prior 2 weeks. Bilirubin was 9.4, direct bilirubin 7.2. CT AP showed evidence of intra-and extrahepatic biliary obstruction. Pt was transferred to [facility] on 06/19/23. He was admitted, then underwent EGD and ERCP as well as EUS. This identified a stricture in the pancreatic duct, as well as a CBD, in the pancreatic head region. He had successful stent placement. Endoscopic ultrasound showed a 1.5 x 1.3 cm tumor in the pelvic and dedicated abutting the SMV but not involving the SMA, no mention of any suspicious adenopathy. Biopsy, from 06/23/23, was positive for invasive ductal adenocarcinoma. He was recommended follow-up with Medical and Surgical Oncology but, initially did not do so. He was then seen back by his PCP, at the [facility], and referred back to Dr. Kay. Staging PET scan done did not show metastatic disease. He was assessed by Surgical Oncology, at [facility] and felt to be resectable. He has completed the 6 cycles recommended of neoa djuvant FOLFIRINOX. He is to have his treatment f/u CT CAP 12/13 at [facility]. Currently admitted with vomiting and diarrhea x 2 days, he was taking antidiarrheals, as recommended and as he did before only this time he did not get any relief. Pt reports he is feeling better today, no N,V today, he has had 2 diarrhea stools this AM. Denies fever, oral irritation, new SOB or cough, abd pain, acute changes in bowel or bladder, no swelling in the legs. He is reporting "tingly" sensation in the fingers when cold (known SE of chemo). Review of Systems 10 point ROS is neg except as stated in HPI Past Medical History Past Medical History: Blood Disorder, Cancer, COPD, Diabetes Mellitus, Hyperlipidemia, Hypertension, Thyroid Disorder Additional Past Medical History / Comment(s): Hx pancreatic cancer. 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 "Gets shots in eyes due to Diabetes." History of Any Multi-Drug Resistant Organisms: None Reported Past Surgical History: Joint Replacement Additional Past Surgical History / Comment(s): Right hip replacement, aortic aneurysm repaired, biliary stent placement with revision. Past Anesthesia/Blood Transfusion Reactions: No Reported Reaction Past Psychological History: No Psychological Hx Reported Smoking Status: Former smoker Past Alcohol Use History: None Reported Past Drug Use History: None Reported - Past Family History Father Family Medical History: Cancer Medications and Allergies Home Medications Medication Instructions Recorded Confirmed Type Cholecalciferol [Vitamin D3 (25 50 mcg PO DAILY 10/06/21 09/19/23 History Mcg = 1000 Iu)] Ferrous Sulfate [Iron (65 MG 325 mg PO DAILY 10/06/21 09/19/23 History Elemental)] Pantoprazole [Protonix] 40 mg PO BID 10/06/21 09/19/23 History Insulin Glargine [Lantus Vial] 15 unit SQ QAM 10/07/21 09/19/23 History Doxazosin [Cardura] 4 mg PO QAM 06/19/23 09/19/23 History Levothyroxine Sodium [Synthroid] 50 mcg PO QAM 06/19/23 09/19/23 History Escitalopram [Lexapro] 5 mg PO QAM 09/19/23 09/19/23 History Ezetimibe [Zetia] 10 mg PO QAM 09/19/23 09/19/23 History Allergies Allergy/AdvReac Type Severity Reaction Status Date / Time codeine AdvReac Nausea & Verified 12/10/23 18:14 Vomiting Physical Exam Vitals: Vital Signs Temp Pulse Pulse Resp BP BP Pulse Ox 12/11/23 08:00 97.9 F 58 L 18 145/76 95 12/11/23 07:05 72 18 134/88 95 12/11/23 03:15 61 14 128/68 95 12/10/23 23:38 79 16 137/69 98 12/10/23 19:28 67 16 114/73 92 L 12/10/23 18:14 97.7 F 77 18 128/73 98 Intake and Output 12/10/23 12/11/23 12/11/23 22:59 06:59 14:59 Other: Weight 68.039 kg - Constitutional General appearance: average body habitus, cooperative, no acute distress - EENT Eyes: anicteric sclerae, EOMI ENT: hearing grossly normal, normal oropharynx - Neck Neck: no lymphadenopathy - Respiratory Respiratory: bilateral: CTA - Cardiovascular Rhythm: regular Heart sounds: normal: S1, S2 Abnormal Heart Sounds: no systolic murmur, no diastolic murmur, no rub, no S3 Gallop, no S4 Gallop, no click, no other leg Peripheral Edema: bilateral: None - Gastrointestinal General gastrointestinal: no absent bowel sounds, no decreased bowel sounds, no distended, no hepatomegaly, no hyperactive bowel sounds, normal bowel sounds, no organomegaly, no rigid, no scaphoid, soft, no splenomegaly, no tenderness, no umbilical hernia, no ventral hernia - Integumentary Integumentary: normal - Neurologic Neurologic: CNII-XII intact - Musculoskeletal Musculoskeletal: generalized weakness, strength equal bilaterally - Psychiatric Psychiatric: A&O x's 3, appropriate affect, intact judgment & insight Results CBC & Chem 7: 12/10/23 18:49 12/10/23 18:49 Labs: Abnormal Lab Results - Last 24 Hours (Table) 12/10/23 12/10/23 12/10/23 Range/Units 18:49 18:49 21:50 WBC 27.4 H (3.8-10.6) k/uL RBC 4.23 L (4.30-5.90) m/uL Hgb 12.7 L (13.0-17.5) gm/dL Hct 37.1 L (39.0-53.0) % RDW 17.4 H (11.5-15.5) % Plt Count 80 L (150-450) k/uL Neutrophils # (Manual) 20.00 H (1.3-7.7) k/uL Lymphocytes # (Manual) 7.40 H (1.0-4.8) k/uL Sodium 134 L (137-145) mmol/L BUN 21 H (9-20) mg/dL Glucose 109 H (74-99) mg/dL Alkaline Phosphatase 222 H (38-126) U/L Total Protein 6.2 L (6.3-8.2) g/dL Urine Protein Trace H (Negative) Urine Bacteria Rare H (None) /hpf Hyaline Casts 9 H (0-2) /lpf Urine Mucus Moderate H (None) /hpf CT scan - abdomen: report reviewed CT scan - pelvis: report reviewed Assessment and Plan (1) Nausea vomiting and diarrhea Current Visit: Yes Status: Acute Priority: High Code(s): R11.2 - NAUSEA WITH VOMITING, UNSPECIFIED; R19.7 - DIARRHEA, UNSPECIFIED SNOMED Code(s): 0174277 (2) Pancreatic adenocarcinoma Current Visit: Yes Status: Acute Priority: Medium Code(s): C25.9 - MALIGNANT NEOPLASM OF PANCREAS, UNSPECIFIED SNOMED Code(s): 163722689 (3) CLL (chronic lymphocytic leukemia) Current Visit: Yes Status: Chronic Priority: Low Code(s): C91.10 - CHRONIC LYMPHOCYTIC LEUK OF B-CELL TYPE NOT ACHIEVE REMIS SNOMED Code(s): 26695166 Plan: Nausea, vomiting and diarrhea -Secondary to chemotherapy -Agree with best supportive care including hydration and medications for symptoms. Pt improving -Patient encouraged to utilize medications as needed for symptoms. -CT AP possibly a mild ileus, no obstruction identified. Patient is currently tolerating oral intake. Pancreatic adenocarcinoma -Diagnosis and treatment as stated in HPI -Patient has completed neoadjuvant chemotherapy -Patient is due for treatment follow-up imaging, neoadjuvant treatment follow-up imaging. He will be reassessed by surgeon for possible Whipple procedure. -His reoprted symptoms are known side effects of chemo. He is doing better with supportive care. Cold sensitivity will wane as time goes on CLL/SLL -Patient has not required treatment of the same. -Abnormalities in the WBC and differential secondary to disease. -Nothing acute at that time to treat Doctor attests: I performed a history and physical examination of this patient, developed impression and plan of care. Discussed with dictator. I agree with dictators note, documented as a scribe.
[2023-12-11 20:12] LABS: Glucose,Whole Blood 190 mg/dL (70-110)
[2023-12-11 20:32] VITALS: RESP 16
[2023-12-12 05:33] LABS: African American GFR (CKD) >90 (>60 ml/min/1.73 sqM); Anion Gap 4 mmol/L; Blood Urea Nitrogen 8 mg/dL (9-20); Calcium 7.9 mg/dL (8.4-10.2); Carbon Dioxide 23 mmol/L (22-30); Chloride 108 mmol/L (98-107); Glucose 100 mg/dL (74-99); Magnesium 1.6 mg/dL (1.6-2.3); Non-African American GFR(CKD) >90 (>60 ml/min/1.73 sqM); Potassium 3.6 mmol/L (3.5-5.1); Sodium 135 mmol/L (137-145)
[2023-12-12 05:42] LABS: Anisocytosis Slight; HCT 29.5 % (39.0-53.0); MCH 29.6 pg (25.0-35.0); MCHC 33.8 g/dL (31.0-37.0); MCV 87.7 fL (80.0-100.0); Mean Platelet Volume 10.8; RBC 3.36 m/uL (4.30-5.90); RDW 17.3 % (11.5-15.5)
[2023-12-12 05:49] LABS: Platelet Count 50 k/uL (150-450)
[2023-12-12 07:18] LABS: Glucose,Whole Blood 112 mg/dL (70-110)
[2023-12-12] MEDS: ESCITALOPRAM 5 MG TAB PO SCH (08:45)
[2023-12-12 12:06] LABS: Glucose,Whole Blood 140 mg/dL (70-110)
[2023-12-12 12:26] VITALS: BP 146/71; PULSE 68; TEMP 97.8
--- NOTE | 2023-12-12 12:51 | P.DS ---
Providers Date of admission: 12/11/23 00:59 Attending physician: Adela Collazo MD Consults: 12/11/23 00:56 Consult Physician Routine Consulting Provider: Obey Kay Consult Reason/Comments: Your patient Do you want consulting provider notified?: Yes Primary care physician: [facility] Hospital Course: Discharge Diagnosis: Intractable diarrhea secondary to chemotherapy Leukocytosis likely due to nausea vomiting: Resolved Normocytic anemia thrombocytopenia likely due to chemotherapy Diabetes mellitus Depression BPH Hyperlipidemia Hypothyroidism Hospital Course: 73 year old M with PMH of Colon CA with mets to the pancreas, DM, Depression, Hypothyroidism, BPH presents to the ED for intractable diarrhea related to his chemotherapy. He also reported chills, nausea and vomiting. This has led to decreased appetite. In the ED he underwent extensive evaluation. BP 128/73, HR 77, RR 18, T 97.7F, 98% on RA. CBC, CMP significant for WBC 27.4, RBC 4.23, Hg 12.7, Hct 37.1, Plt 80, Na 134, BUN 21, glu 109, alk phos 222. Mag 1.7. CRP 0.9. UA neg LE or nitrite. C.diff neg. CT AP no acute finding with possible mild ileus. Patient is admitted for further workup and management. Patient was admitted to the medicine service. He was treated with supportive care as his diarrhea was due to chemotherapy. Patient was started on Imodium as needed. Patient was also given fluids. The following day patient reported that his symptoms had improved. Patient was looking forward to going home. Patient seen and examined at bedside.[] Vital signs reviewed and stable. 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 Discharge done on 12/12/2023 Patient Condition at Discharge: Fair Plan - Discharge Summary Discharge Rx Participant: No New Discharge Prescriptions: New Loperamide [Imodium] 2 mg PO BID PRN 3 Days #6 cap PRN Reason: Diarrhea Continue Ezetimibe [Zetia] 10 mg PO DAILY Escitalopram [Lexapro] 10 mg PO DAILY Ferrous Sulfate [Iron (65 MG Elemental)] 325 mg PO DAILY Cholecalciferol [Vitamin D3 (25 Mcg = 1000 Iu)] 50 mcg PO DAILY Insulin Glargine [Lantus Vial] 15 unit SQ DAILY Levothyroxine Sodium [Synthroid] 50 mcg PO DAILY atenoloL [Tenormin] 25 mg PO DAILY Discharge Medication List Cholecalciferol [Vitamin D3 (25 Mcg = 1000 Iu)] 50 mcg PO DAILY 10/06/21 [History] Ferrous Sulfate [Iron (65 MG Elemental)] 325 mg PO DAILY 10/06/21 [History] Insulin Glargine [Lantus Vial] 15 unit SQ DAILY 10/07/21 [History] Levothyroxine Sodium [Synthroid] 50 mcg PO DAILY 06/19/23 [History] Ezetimibe [Zetia] 10 mg PO DAILY 09/19/23 [History] Escitalopram [Lexapro] 10 mg PO DAILY 12/11/23 [History] atenoloL [Tenormin] 25 mg PO DAILY 12/11/23 [History] Loperamide [Imodium] 2 mg PO BID PRN 3 Days #6 cap 12/12/23 [Rx] Follow up Appointment(s)/Referral(s): Obey Kay [STAFF PHYSICIAN] - 12/20/23 12:00 pm [facility] [Primary Care Provider] - 1-2 days Discharge Disposition: HOME SELF-CARE
--- NOTE | 2023-12-12 15:26 | P.PN ---
Subjective Progress Note Date: 12/12/23 No acute events. Diarrhea subsided. Tolerated breakfast without n/v. Plan for discharge today Objective - Vital Signs Vital signs: Vital Signs Temp 98.6 F 12/12/23 07:12 Pulse 75 12/12/23 07:12 Resp 16 12/12/23 07:12 BP 118/56 12/12/23 07:12 Pulse Ox 97 12/12/23 07:12 FiO2 Intake & Output 12/11/23 12/12/23 12/12/23 18:59 06:59 18:59 Intake Total 1360 Balance 1360 Weight 68.039 kg Intake: Oral 1360 Other: Voiding Method Toilet # Voids 3 3 # Bowel Movements 2 - Constitutional General appearance: Present: no acute distress - EENT Eyes: Present: anicteric sclerae, EOMI ENT: Present: hearing grossly normal - Respiratory Details: breathing is even and unlabored - Cardiovascular Details: skin warm and dry - Gastrointestinal General gastrointestinal: Present: soft. Absent: tenderness - Integumentary Integumentary: Absent: cyanotic - Musculoskeletal Musculoskeletal: Present: strength equal bilaterally - Psychiatric Psychiatric: Present: A&O x's 3 - Labs CBC & Chem 7: 12/12/23 04:11 12/12/23 04:11 Labs: Abnormal Lab Results - Last 24 Hours (Table) 12/10/23 12/11/23 12/11/23 Range/Units 21:50 17:20 20:09 RBC (4.30-5.90) m/uL Hgb (13.0-17.5) gm/dL Hct (39.0-53.0) % RDW (11.5-15.5) % Plt Count (150-450) k/uL Sodium (137-145) mmol/L Chloride (98-107) mmol/L BUN (9-20) mg/dL Creatinine (0.66-1.25) mg/dL Glucose (74-99) mg/dL POC Glucose (mg/dL) 130 H 190 H (70-110) mg/dL Hemoglobin A1c (<=6.0) % Calcium (8.4-10.2) mg/dL Stool Lactoferrin Positive A (Negative) 12/12/23 12/12/23 12/12/23 Range/Units 04:11 04:11 04:11 RBC 3.36 L (4.30-5.90) m/uL Hgb 10.0 L D (13.0-17.5) gm/dL Hct 29.5 L (39.0-53.0) % RDW 17.3 H (11.5-15.5) % Plt Count 50 L (150-450) k/uL Sodium 135 L (137-145) mmol/L Chloride 108 H (98-107) mmol/L BUN 8 L (9-20) mg/dL Creatinine 0.58 L (0.66-1.25) mg/dL Glucose 100 H (74-99) mg/dL POC Glucose (mg/dL) (70-110) mg/dL Hemoglobin A1c 6.6 H (<=6.0) % Calcium 7.9 L (8.4-10.2) mg/dL Stool Lactoferrin (Negative) 12/12/23 Range/Units 07:16 RBC (4.30-5.90) m/uL Hgb (13.0-17.5) gm/dL Hct (39.0-53.0) % RDW (11.5-15.5) % Plt Count (150-450) k/uL Sodium (137-145) mmol/L Chloride (98-107) mmol/L BUN (9-20) mg/dL Creatinine (0.66-1.25) mg/dL Glucose (74-99) mg/dL POC Glucose (mg/dL) 112 H (70-110) mg/dL Hemoglobin A1c (<=6.0) % Calcium (8.4-10.2) mg/dL Stool Lactoferrin (Negative) Assessment and Plan (1) Ileus Status: Acute Priority: High Code(s): K56.7 - ILEUS, UNSPECIFIED SNOMED Co de(s): 495764778 (2) Nausea vomiting and diarrhea Status: Acute Priority: High Code(s): R11.2 - NAUSEA WITH VOMITING, UNSPECIFIED; R19.7 - DIARRHEA, UNSPECIFIED SNOMED Code(s): 9473838 (3) Pancreatic adenocarcinoma Status: Acute Priority: Medium Code(s): C25.9 - MALIGNANT NEOPLASM OF PANCREAS, UNSPECIFIED SNOMED Code(s): 416991335 (4) CLL (chronic lymphocytic leukemia) Status: Chronic Priority: Low Code(s): C91.10 - CHRONIC LYMPHOCYTIC LEUK OF B-CELL TYPE NOT ACHIEVE REMIS SNOMED Code(s): 35106882 Plan: Nausea, vomiting and diarrhea -Secondary to chemotherapy -Agree with best supportive care including hydration and medications for symptoms. Pt improving -Patient encouraged to utilize medications as needed for symptoms. -CT AP possibly a mild ileus, no obstruction identified. Patient is currently tolerating oral intake -Discussed supportive cares measures in detail with patient and family for discharge Pancreatic adenocarcinoma -Diagnosis and treatment as stated in HPI -Patient has completed neoadjuvant chemotherapy -Patient is due for treatment follow-up imaging on 12/13. He will be reassessed by surgeon for possible Whipple procedure. -His reported symptoms are known side effects of chemo. He is doing better with supportive care. Cold sensitivity will wane as time goes on CLL/SLL -Patient has not required treatment of the same. -Abnormalities in the WBC and differential secondary to disease. -Nothing acute at that time to treat
== END 2023-12-12 13:52 | disposition home or self-care (01) ==
LOC: EC 18:09 → 5NMEDONC 12-11 00:59
PROVIDERS: ADMIT Internal Medicine; ATTEND Internal Medicine
DX: K52.1 Toxic gastroenteritis and colitis (principal); T45.1X5A Adverse effect of antineoplastic and immunosuppressive drugs, initial encounter; K56.7 Ileus, unspecified; C25.9 Malignant neoplasm of pancreas, unspecified; C91.10 Chronic lymphocytic leukemia of B-cell type not having achieved remission; D64.9 Anemia, unspecified; D69.6 Thrombocytopenia, unspecified; J44.9 Chronic obstructive pulmonary disease, unspecified; E78.5 Hyperlipidemia, unspecified; I10 Essential (primary) hypertension; E03.9 Hypothyroidism, unspecified; F32.A Depression, unspecified; E11.9 Type 2 diabetes mellitus without complications; N40.0 Benign prostatic hyperplasia without lower urinary tract symptoms; Z87.891 Personal history of nicotine dependence; Z88.5 Allergy status to narcotic agent; Z79.899 Other long term (current) drug therapy; Z79.890 Hormone replacement therapy; Z79.4 Long term (current) use of insulin; Z85.038 Personal history of other malignant neoplasm of large intestine
CPT/HCPCS: 96361 ×4; 96365; 96366; 96375; 99285; 36415; 93005; 80053; 80048; 83605; 83735 ×2; 85025; 85027; 86140; 81001; 87040; 87324; 87045; 83630; 87046; 83036; 74176; G0378 ×2; J2405; J0696

== ENCOUNTER 2024-01-12 15:50 | Emergency (ER) | payer OTHER, MEDICARE ==
--- NOTE | 2024-01-12 16:42 | ED ---
General Adult HPI - General Chief complaint: Nausea/Vomiting/Diarrhea Stated complaint: vomitting/weakness Time Seen by Provider: 01/12/24 15:51 Source: patient, EMS, RN notes reviewed, old records reviewed Mode of arrival: EMS - History of Present Illness Initial comments: 73-year-old male presenting with vomiting. Patient is 14 days status post laparotomy at [facility]. Patient describes procedure where they removed a pancreatic mass, possible Whipple procedure. He states that he has been home for approximately 1 week and has been doing mostly quite good. He is had several episodes of vomiting over the past 3 days. He states he is moving his bowels and is having loose stool. No fever. No abdominal pain. - Related Data Home Medications Medication Instructions Recorded Confirmed Cholecalciferol [Vitamin D3 (25 50 mcg PO DAILY 10/06/21 12/11/23 Mcg = 1000 Iu)] Ferrous Sulfate [Iron (65 MG 325 mg PO DAILY 10/06/21 12/11/23 Elemental)] Insulin Glargine [Lantus Vial] 15 unit SQ DAILY 10/07/21 12/11/23 Levothyroxine Sodium [Synthroid] 50 mcg PO DAILY 06/19/23 12/11/23 Ezetimibe [Zetia] 10 mg PO DAILY 09/19/23 12/11/23 Escitalopram [Lexapro] 10 mg PO DAILY 12/11/23 12/11/23 atenoloL [Tenormin] 25 mg PO DAILY 12/11/23 12/11/23 Previous Rx's Medication Instructions Recorded Loperamide [Imodium] 2 mg PO BID PRN 3 Days #6 cap 12/12/23 Allergies Allergy/AdvReac Type Severity Reaction Status Date / Time codeine AdvReac Nausea & Verified 01/12/24 16:04 Vomiting Review of Systems ROS Statement: Those systems with pertinent positive or pertinent negative responses have been documented in the HPI. ROS Other: All systems not noted in ROS Statement are negative. Past Medical History Past Medical History: Blood Disorder, Cancer, COPD, Diabetes Mellitus, Hyperlipidemia, Hypertension, Thyroid Disorder Additional Past Medical History / Comment(s): Hx pancreatic cancer. 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 "Gets shots in eyes due to Diabetes." History of Any Multi-Drug Resistant Organisms: None Reported Past Surgical History: Joint Replacement Additional Past Surgical History / Comment(s): Right hip replacement, aortic aneurysm repaired, biliary stent placement with revision. abd surgery to remove cancer-Dec 28 Past Anesthesia/Blood Transfusion Reactions: No Reported Reaction Past Psychological History: No Psychological Hx Reported Smoking Status: Former smoker Past Alcohol Use History: None Reported Past Drug Use History: None Reported - Past Family History Father Family Medical History: Cancer General Exam General appearance: alert, in no apparent distress Head exam: Present: atraumatic, normocephalic Eye exam: Present: normal appearance, PERRL ENT exam: Present: normal exam Neck exam: Present: normal inspection. Absent: tenderness, meningismus Respiratory exam: Present: normal lung sounds bilaterally. Absent: respiratory distress, wheezes Cardiovascular Exam: Present: regular rate, normal rhythm GI/Abdominal exam: Present: soft, other (Midline laparotomy incision is well- healed). Absent: distended, tenderness Neurological exam: Present: alert, oriented X3, CN II-XII intact, reflexes normal. Absent: motor sensory deficit Psychiatric exam: Present: normal affect, normal mood Course Vital Signs 01/12/24 01/12/24 01/12/24 15:58 16:37 18:16 Temperature 98.2 F 98.1 F Pulse Rate 79 86 80 Respiratory 18 18 12 Rate Blood Pressure 141/85 126/73 150/77 O2 Sat by Pulse 97 97 97 Oximetry Medical Decision Making - Medical Decision Making Was pt. sent in by a medical professional or institution (MARK Stout, VOICE NETWORK ADMINISTRATOR, urgent ca re, hospital, or fci...) When possible be specific @ -No Did you speak to anyone other than the patient for history (EMS, parent, family, police, friend...)? What history was obtained from this source @ -No Did you review nursing and triage notes (agree or disagree)? Why? @ -I reviewed and agree with nursing and triage notes Were old charts reviewed (outside hosp., previous admission, EMS record, old EKG, old radiological studies, urgent care reports/EKG's, fci records)? Report findings @ -No old charts were reviewed Differential Diagnosis (chest pain, altered mental status, abdominal pain women, abdominal pain men, vaginal bleeding, weakness, fever, dyspnea, syncope, headache, dizziness, GI bleed, back pain, seizure, CVA, palpatations, mental health, musculoskeletal)? @ -Not applicable EKG interpreted by me (3pts min.). @ -Sinus rhythm rate of 80, TN interval 190, QRS duration 85, QTc 400 X-rays interpreted by me (1pt min.). @ -None done CT interpreted by me (1pt min.). @CT of the abdomen pelvis with contrast shows an anterior abdominal wall seroma or abscess. The stomach is fluid-filled. There is no small bowel obstruction. Suspect proximal obstruction. U/S interpreted by me (1pt. min.). @ -None done What testing was considered but not performed or refused? (CT, X-rays, U/S, labs)? Why? @ -None What meds were considered but not given or refused? Why? @ -None Did you discuss the management of the patient with other professionals (professionals i.e. , PA, VOICE NETWORK ADMINISTRATOR, lab, RT, psych nurse, social work professor, patternmaker metal bench, teacher, assistant chief nursing officer, immigration case manager)? Give summary @ -Case discussed with Dr. Greenfield at [facility] in [place], will ex cept transfer. Was smoking cessation discussed for >3mins.? @ -No Was critical care preformed (if so, how long)? @ -No Were there social determinants of health that impacted care today? How? (Homele ssness, low income, unemployed, alcoholism, drug addiction, transportation, low edu. Level, literacy, decrease access to med. care, senior care, rehab)? @ -No Was there de-escalation of care discussed even if they declined (Discuss DNR or withdrawal of care, Hospice)? DNR status @ -No What co-morbidities impacted this encounter? (DM, HTN, Smoking, COPD, CAD, Cancer, CVA, ARF, Chemo, Hep., AIDS, mental health diagnosis, sleep apnea, morbid obesity)? @ -Pancreatic cancer 2 weeks status post Whipple Was patient admitted / discharged? Hospital course, mention meds given and route, prescriptions, significant lab abnormalities, going to OR and other pertinent info. @ -[73-year-old male presenting with nausea vomiting over the past 3 days. This is bilious. The patient had a Whipple procedure done for pancreatic cancer on December 28 at [facility]. Patient's vital signs are stable. Labo ratory testing is unremarkable. He does have several episodes of vomiting while in the emergency department. His CT shows a fluid-filled stomach and anterior abdominal wall seroma or abscess. I suspect this is seroma there is no pain, no fever, no leukocytosis. NG tube is placed to the emergency department and the patient is transferred to [facility] for further evaluation and treatment. Undiagnosed new problem with uncertain prognosis? @ -No Drug Therapy requiring intensive monitoring for toxicity (Heparin, Nitro, Insulin, Cardizem)? @ -No Were any procedures done? @ -No Diagnosis/symptom? @ -Postoperative nausea vomiting, anterior abdominal wall seroma, Acute, or Chronic, or Acute on Chronic? @ -Acute Uncomplicated (without systemic symptoms) or Complicated (systemic symptoms)? @ -Default Side effects of treatment? @ -No Exacerbation, Progression, or Severe Exacerbation? @ -No Poses a threat to life or bodily function? How? (Chest pain, USA, SD, pneumonia, PE, COPD, DKA, ARF, appy, cholecystitis, CVA, Diverticulitis, Homicidal, Suicidal, threat to staff... and all critical care pts) @ -Yes, gastric outlet obstruction, proximal small bowel obstruction - Lab Data Result diagrams: 01/12/24 16:28 01/12/24 16:28 Lab Results 01/12/24 01/12/24 01/12/24 Range/Units 16:28 16:28 16:28 WBC 9.8 (3.8-10.6) k/uL RBC 3.69 L (4.30-5.90) m/uL Hgb 11.1 L (13.0-17.5) gm/dL Hct 34.6 L (39.0-53.0) % MCV 94.0 D (80.0-100.0) fL MCH 30.0 (25.0-35.0) pg MCHC 31.9 (31.0-37.0) g/dL RDW 16.6 H (11.5-15.5) % Plt Count 217 D (150-450) k/uL MPV 9.9 Neutrophils % 46 % Lymphocytes % 43 % Monocytes % 6 % Eosinophils % 1 % Basophils % 0 % Neutrophils # 4.5 (1.3-7.7) k/uL Lymphocytes # 4.3 (1.0-4.8) k/uL Monocytes # 0.6 (0-1.0) k/uL Eosinophils # 0.1 (0-0.7) k/uL Basophils # 0.0 (0-0.2) k/uL Hypochromasia Slight Anisocytosis Slight PT 12.2 (10.0-12.5) sec INR 1.1 (<1.2) APTT 23.3 (22.0-30.0) sec Sodium 134 L (137-145) mmol/L Potassium 4.7 (3.5-5.1) mmol/L Chloride 100 (98-107) mmol/L Carbon Dioxide 29 (22-30) mmol/L Anion Gap 5 mmol/L BUN 10 (9-20) mg/dL Creatinine 0.48 L (0.66-1.25) mg/dL Est GFR (CKD-EPI)AfAm >90 (>60 ml/min/1.73 sqM) Est GFR (CKD-EPI)NonAf >90 (>60 ml/min/1.73 sqM) Glucose 117 H (74-99) mg/dL Plasma Lactic Acid Lionel (0.7-2.0) mmol/L Calcium 8.6 (8.4-10.2) mg/dL Total Bilirubin 0.5 (0.2-1.3) mg/dL AST 28 (17-59) U/L ALT 10 (4-49) U/L Alkaline Phosphatase 119 (38-126) U/L Total Protein 6.1 L (6.3-8.2) g/dL Albumin 3.5 (3.5-5.0) g/dL Amylase 30 (30-110) U/L Lipase 11 L (23-300) U/L /15/24 Range/Units 16:28 WBC (3.8-10.6) k/uL RBC (4.30-5.90) m/uL Hgb (13.0-17.5) gm/dL Hct (39.0-53.0) % MCV (80.0-100.0) fL MCH (25.0-35.0) pg MCHC (31.0-37.0) g/dL RDW (11.5-15.5) % Plt Count (150-450) k/uL MPV Neutrophils % % Lymphocytes % % Monocytes % % Eosinophils % % Basophils % % Neutrophils # (1.3-7.7) k/uL Lymphocytes # (1.0-4.8) k/uL Monocytes # (0-1.0) k/uL Eosinophils # (0-0.7) k/uL Basophils # (0-0.2) k/uL Hypochromasia Anisocytosis PT (10.0-12.5) sec INR (<1.2) APTT (22.0-30.0) sec Sodium (137-145) mmol/L Potassium (3.5-5.1) mmol/L Chloride (98-107) mmol/L Carbon Dioxide (22-30) mmol/L Anion Gap mmol/L BUN (9-20) mg/dL Creatinine (0.66-1.25) mg/dL Est GFR (CKD-EPI)AfAm (>60 ml/min/1.73 sqM) Est GFR (CKD-EPI)NonAf (>60 ml/min/1.73 sqM) Glucose (74-99) mg/dL Plasma Lactic Acid Lionel 1.2 (0.7-2.0) mmol/L Calcium (8.4-10.2) mg/dL Total Bilirubin (0.2-1.3) mg/dL AST (17-59) U/L ALT (4-49) U/L Alkaline Phosphatase (38-126) U/L Total Protein (6.3-8.2) g/dL Albumin (3.5-5.0) g/dL Amylase (30-110) U/L Lipase (23-300) U/L Disposition Clinical Impression: Nausea & vomiting, Pancreatic adenocarcinoma, History of Whipple procedure Disposition: OTHER INSTITUTION NOT DEFINED Condition: Stable Is patient prescribed a controlled substance at d/c from ED?: No Referrals: [facility] [Primary Care Provider] - 1-2 days Time of Disposition: 19:38 - Out of Hospital Transfer - Req. Specs Out of Hospital Transfer - Requested Specifics: Other Emergency Center (Transfer to [facility])
[2024-01-12 17:03] LABS: Anisocytosis Slight; Basophils % (A) 0 %; Eosinophils # (A) 0.1 k/uL (0-0.7); Eosinophils % (A) 1 %; HCT 34.6 % (39.0-53.0); HGB 11.1 gm/dL (13.0-17.5); Hypochromasia Slight; Lymphocytes # (A) 4.3 k/uL (1.0-4.8); Lymphocytes % (A) 43 %; MCHC 31.9 g/dL (31.0-37.0); Mean Platelet Volume 9.9; Monocytes # (A) 0.6 k/uL (0-1.0); Monocytes % (A) 6 %; Neutrophils # (A) 4.5 k/uL (1.3-7.7); Neutrophils % (A) 46 %; RBC 3.69 m/uL (4.30-5.90); RDW 16.6 % (11.5-15.5); WBC 9.8 k/uL (3.8-10.6)
[2024-01-12 17:04] LABS: ALT 10 U/L (4-49); African American GFR (CKD) >90 (>60 ml/min/1.73 sqM); Albumin 3.5 g/dL (3.5-5.0); Amylase 30 U/L (30-110); Anion Gap 5 mmol/L; Blood Urea Nitrogen 10 mg/dL (9-20); Calcium 8.6 mg/dL (8.4-10.2); Carbon Dioxide 29 mmol/L (22-30); Chloride 100 mmol/L (98-107); Glucose 117 mg/dL (74-99); Lipase 11 U/L (23-300); Non-African American GFR(CKD) >90 (>60 ml/min/1.73 sqM); Sodium 134 mmol/L (137-145); Total Bilirubin 0.5 mg/dL (0.2-1.3); Total Protein 6.1 g/dL (6.3-8.2)
[2024-01-12 17:05] LABS: Platelet Count 217 k/uL (150-450)
[2024-01-12 17:20] LABS: INR 1.1 (<1.2); Partial Thromboplastin Time 23.3 sec (22.0-30.0); Prothrombin Time 12.2 sec (10.0-12.5)
[2024-01-12 17:32] LABS: AST 28 U/L (17-59); Potassium 4.7 mmol/L (3.5-5.1)
[2024-01-12 17:33] LABS: Alkaline Phosphatase 119 U/L (38-126)
[2024-01-12] MEDS: ONDANSETRON 4 MG/2 ML VIAL IVP STA (18:03)
[2024-01-12] MEDS: SODIUM CHLORIDE 0.9% 500 ML 500 ML IV ONE (18:13)
[2024-01-12 18:19] VITALS: TEMP 98.1
--- NOTE | 2024-01-12 18:47 | CT ---
EXAMINATION TYPE: CT abdomen pelvis w con DATE OF EXAM: 01/12/2024 6:17 PM COMPARISON: 12/10/2023 CLINICAL INDICATION: Male, 73 years old with history of abdominal pain/n/v, n/v/d x 3 days. TECHNIQUE: Axial images were obtained from above the diaphragm to the pubic rami in the axial plane a t 5 mm thick sections. Reconstructed images are reviewed on the computer in the coronal plane. CONTRAST: 100cc mL of Isovue 300. Study performed without Oral Contrast DLP: 517.3 mGycm, Automated exposure control for dose reduction was used. FINDINGS: Limited CT sections are obtained the lung bases. A 1.0 cm focal area of infiltrate within the lingul a, series 201 image 1. Underlying nodules not excluded. Follow-up is recommended emphysematous change s are evident. CT ABDOMEN: There is a fluid-filled collection in the periumbilical region appears to be postsurgical site. This measures 5.6 x 3.2 cm This contains some air. Seroma and infection should be considered. Loops of bowel are adjacent to the anterior abdominal wall this level. Small amount of bowel could po tentially be involved, series 201 image 44. Obstruction is not clearly identified. Liver: Normal Spleen: Normal Pancreas: Normal Adrenal glands: The adrenal glands are normal. Gallbladder: Not identified. Kidneys: No masses are evident. No hydronephrosis is present. No cysts are present. Contrast excre tion is evident Aorta: Vascular calcification is within the aorta. Inferior vena cava: Normal. CT PELVIS: There may be some fluid-filled rectum. Colon is nondistended small bowel loops appear nondistended. S tudy is without neural contrast limiting bowel evaluation. Appendix: Normal as visualized. Urinary bladder: Appears to be a 1.9 mm filling defect within the left urinary bladder. Additional wo rkup is recommended Genitourinary structures: Prostate is normal Osseous structures: No suspicious lytic or sclerotic lesions. IMPRESSION: 1. Anterior abdominal wall seroma likely present. Infection could be considered with some air in the periumbilical collection. 2. Small amount of partial small bowel involvement at the anterior abdominal wall may be present. 3. Suspected filling defect measuring 1.9 cm within the left urinary bladder. Additional workup is re commended. [facility], , 01/12/2024 6:45 PM
--- NOTE | 2024-01-12 20:18 | XR ---
EXAMINATION TYPE: XR chest 1V portable DATE OF EXAM: 01/12/2024 8:13 PM COMPARISON: 09/20/2023 CLINICAL INDICATION: Male, 73 years old with history of NG tube placement, TECHNIQUE: XR chest 1V portable view(s) obtained. FINDINGS: The heart size is normal. The pulmonary vasculature is normal. The lungs are clear. Nasogastric tube transverses the thorax tip in the abdomen. Right sided port tip is in the superior v jones cava region. IMPRESSION: 1. No acute pulmonary process. 2. Lines and catheters discussed above [facility], , 01/12/2024 8:15 PM
[2024-01-12] MEDS: SODIUM CHLORIDE 0.9% 1,000 ML IV SCH (20:35)
[2024-01-12 20:48] VITALS: BP 122/80; PULSE 82; RESP 20
== END 2024-01-12 20:50 | disposition other institution (70) ==
LOC: EC 15:50
DX: C25.9 Malignant neoplasm of pancreas, unspecified (principal); Z90.411 Acquired partial absence of pancreas; Z88.5 Allergy status to narcotic agent; Z87.891 Personal history of nicotine dependence
CPT/HCPCS: 36415; 93005; 80053; 82150; 83605; 83690; 85025; 85610; 85730; 71045; 74177; 99285; 96374; 96361; J2405; Q9967

== ENCOUNTER 2024-01-18 14:37 | Inpatient (IN) | payer OTHER, MEDICARE ==
--- NOTE | 2024-01-18 14:56 | ED ---
Altered Mental Status HPI - General Chief Complaint: Altered Mental Status Stated Complaint: post-op issue, confusion Time Seen by Provider: 01/18/24 14:55 Source: patient, family, RN notes reviewed, old records reviewed Mode of arrival: wheelchair Limitations: no limitations - History of Present Illness Initial Comments: This is a 73-year-old male to the ER for evaluation today. Patient presents today for evaluation of mental status with recent hospital discharge, patient was inpatient hospitalized after Whipple procedure for pancreatic cancer, pr esents today as family's concern for altered mental status MD Complaint: altered mental status, confusion, decreased responsiveness, weakness -: hour(s) Severity: mild Consistency of Symptoms: getting worse Context: history of similar presentation Associated Symptoms: denies other symptoms Treatments Prior to Arrival: oxygen - Related Data Home Medications Medication Instructions Recorded Confirmed Ferrous Sulfate [Iron (65 MG 325 mg PO DAILY 10/06/21 01/18/24 Elemental)] Insulin Glargine [Lantus Vial] 5 unit SQ DAILY PRN 10/07/21 01/18/24 Levothyroxine Sodium [Synthroid] 50 mcg PO DAILY 06/19/23 01/18/24 Escitalopram [Lexapro] 10 mg PO DAILY 12/11/23 01/18/24 Aspirin EC [Ecotrin Low Dose] 81 mg PO DAILY 01/18/24 01/18/24 Enoxaparin [Lovenox] 40 mg SQ DAILY 01/18/24 01/18/24 Lipase/Protease/Amylase [Sky Pimentel 1 cap PO QID PRN 01/18/24 01/18/24 24,000 Units Capsule] Lipase/Protease/Amylase [Sky Pimentel 2 cap PO TID-W/MEALS 01/18/24 01/18/24 24,000 Units Capsule] Metoclopramide [Reglan] 5 mg PO Q6H 01/18/24 01/18/24 Naloxone HCl [Narcan] 4 mg NASAL DIRECTED PRN 01/18/24 01/18/24 Pantoprazole [Protonix] 40 mg PO DAILY 01/18/24 01/18/24 lisinopriL [Zestril] 10 mg PO DAILY 01/18/24 01/18/24 methocarbamoL [Robaxin-750] 750 mg PO Q6H PRN 11/21/24 11/21/24 Previous Rx's Medication Instructions Recorded Amoxic-Pot Clav 875-125Mg 1 tab PO Q12HR 1 Days #6 tab 01/22/24 [Augmentin 875-125] Allergies Allergy/AdvReac Type Severity Reaction Status Date / Time codeine AdvReac Nausea & Verified 01/18/24 17:23 Vomiting Review of Systems ROS Statement: Those systems with pertinent positive or pertinent negative responses have been documented in the HPI. ROS Other: All systems not noted in ROS Statement are negative. Past Medical History Past Medical History: Blood Disorder, Cancer, COPD, Diabetes Mellitus, Hyperlipidemia, Hypertension, Thyroid Disorder Additional Past Medical History / Comment(s): Hx pancreatic cancer. 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 "Gets shots in eyes due to Diabetes." History of Any Multi-Drug Resistant Organisms: None Reported Past Surgical History: Joint Replacement Additional Past Surgical History / Comment(s): Right hip replacement, aortic aneurysm repaired, biliary stent placement with revision. abd surgery to remove cancer-Dec 28 Past Anesthesia/Blood Transfusion Reactions: No Reported Reaction Past Psychological History: No Psychological Hx Reported Smoking Status: Former smoker Past Alcohol Use History: None Reported Past Drug Use History: None Reported - Past Family History Father Family Medical History: Cancer General Exam Limitations: no limitations General appearance: alert, in no apparent distress Head exam: Present: atraumatic, normocephalic, normal inspection Eye exam: Present: normal appearance, PERRL, EOMI. Absent: scleral icterus, conjunctival injection, periorbital swelling ENT exam: Present: normal exam, mucous membranes moist Neck exam: Present: normal inspection. Absent: tenderness, meningismus, lymphadenopathy Respiratory exam: Present: normal lung sounds bilaterally. Absent: respiratory distress, wheezes, rales, rhonchi, stridor Cardiovascular Exam: Present: regular rate, normal rhythm, normal heart sounds. Absent: systolic murmur, diastolic murmur, rubs, gallop, clicks GI/Abdominal exam: Present: soft, normal bowel sounds. Absent: distended, tenderness, guarding, rebound, rigid Extremities exam: Present: normal inspection, full ROM, normal capillary refill. Absent: tenderness, pedal edema, joint swelling, calf tenderness Back exam: Present: normal inspection Neurological exam: Present: alert, oriented X3, CN II-XII intact Psychiatric exam: Present: normal affect, normal mood Skin exam: Present: warm, dry, intact, normal color. Absent: rash Course Vital Signs 01/18/24 01/18/24 01/18/24 14:50 15:01 16:00 Temperature 98.3 F Pulse Rate 130 H 102 H 90 Respiratory 18 23 24 Rate Blood Pressure 83/58 84/55 96/59 O2 Sat by Pulse 95 98 95 Oximetry 01/18/24 01/18/24 01/18/24 16:30 18:19 18:58 Temperature Pulse Rate 87 81 80 Respiratory 24 18 Rate Blood Pressure 102/56 94/55 O2 Sat by Pulse 95 96 Oximetry 01/18/24 01/18/24 01/19/24 19:10 20:00 00:03 Temperature 98.6 F 98.3 F Pulse Rate 78 76 68 Respiratory 20 20 Rate Blood Pressure 112/58 98/48 O2 Sat by Pulse 96 97 Oximetry 01/19/24 01/19/24 01/19/24 00:25 02:55 04:15 Temperature 98.2 F Pulse Rate 67 62 69 Respiratory 16 15 15 Rate Blood Pressure 106/54 110/55 O2 Sat by Pulse 97 98 Oximetry 01/19/24 01/19/24 09:00 12:42 Temperature Pulse Rate 73 73 Respiratory 18 17 Rate Blood Pressure 133/97 126/69 O2 Sat by Pulse 97 97 Oximetry - Reevaluation(s) Reevaluation #1: 01/18/24 17:53 Medical records reviewed Reevaluation #2: 01/18/24 17:53 Patient symptoms unchanged Reevaluation #3: 01/18/24 17:53 Patient informed of results and questions answered Reevaluation #4: Was pt. sent in by a medical professional or institution (, PA, WIND OPERATIONS SUPERVISOR, urgent care, hospital, or intermediate...) When possible be specific @ -no Did you speak to anyone other than the patient for history (EMS, parent, family, police, friend...)? What history was obtained from this source @ -no Did you review nursing and triage notes (agree or disagree)? Why? @ -agree Are old charts reviewed (outside hosp., previous admission, EMS record, old EKG, old radiological studies, urgent care reports/EKG's, intermediate records)? Report findings @ -yes Differential Diagnosis (chest pain, altered mental status, abdominal pain women, abdominal pain men, vaginal bleeding, weakness, fever, dyspnea, syncope, headache, dizziness, GI bleed, back pain, seizure, CVA, palpatations, mental health, musculoskeletal)? @ -prior EKG interpreted by me (3pts min.). @ -yes X-rays interpreted by me (1pt min.). @ -no CT interpreted by me (1pt min.). @ -Yes positive for duodenitis no other significant acute disease U/S interpreted by me (1pt. min.). @ -no What testing was considered but not performed or refused? (CT, X-rays, U/S, labs)? Why? @ -none What meds were considered but not given or refused? Why? @ -none Did you discuss the management of the patient with other professionals (professionals i.e. , PA, WIND OPERATIONS SUPERVISOR, lab, RT, psych nurse, social work instructor, machine operator general, t eacher, donor relations officer, ed case manager)? Give summary @ -no Was smoking cessation discussed for >3mins.? @ -no Was critical care preformed (if so, how long)? @ -no Were there social determinants of health that impacted care today? How? (Homelessness, low income, unemployed, alcoholism, drug addiction, transportation, low edu. Level, literacy, decrease access to med. care, long term, rehab)? @ -none Was there de-escalation of care discussed even if they declined (Discuss DNR or withdrawal of care, Hospice)? DNR status @ -no What co-morbidities impacted this encounter? (DM, HTN, Smoking, COPD, CAD, Cancer, CVA, ARF, Chemo, Hep., AIDS, mental health diagnosis, sleep apnea, morbid obesity)? @ -none Was patient admitted / discharged? Hospital course, mention meds given and route, prescriptions, significant lab abnormalities, going to OR and other pertinent info. @ - 73 male to the ER for altered mental status patient having mild duodenitis dehydration and will admit for supportive care Admitted Undiagnosed new problem with uncertain prognosis? @ -no Drug Therapy requiring intensive monitoring for toxicity (Heparin, Nitro, Insulin, Cardizem)? @ -no Were any procedures done? @ -no Diagnosis/symptom? @ -Duodenitis with nausea vomiting Acute, or Chronic, or Acute on Chronic? @ -Acute Uncomplicated (without systemic symptoms) or Complicated (systemic symptoms)? @ -Complicated Side effects of treatment? @ -no Exacerbation, Progression, or Severe Exacerbation? @ -exacerbation Poses a threat to life or bodily function? How? (Chest pain, USA, ID, pneumonia, PE, COPD, DKA, ARF, appy, cholecystitis, CVA, Diverticulitis, Homicidal, Suicidal, threat to staff... and all critical care pts) @ -yes extremes of age Reevaluation #5: Differential Altered Mental Status: Hypoglycemia, DKA, hypercapnia, ETOH, overdose, CO poisoning, trauma, myxedema coma, HTN encephalopathy, infection, encephalitis, psychosis, intercranial hemorrhage, hepatic encephalopathy, meningitis, CVA, this is not meant to be an all-inclusive list - Consultations Consultation #1: Spoke with admitting physicians who agreed to admit this patient Medical Decision Making - Medical Decision Making 73 male to the ER for altered mental status patient having mild duodenitis dehydration and will admit for supportive care - Lab Data Result diagrams: 01/21/24 07:38 01/21/24 07:38 Lab Results 01/18/24 01/18/24 01/18/24 Range/Units 15:30 15:30 15:30 WBC 20.8 H (3.8-10.6) k/uL RBC 3.74 L (4.30-5.90) m/uL Hgb 11.2 L (13.0-17.5) gm/dL Hct 35.5 L (39.0-53.0) % MCV 94.8 (80.0-100.0) fL MCH 29.9 (25.0-35.0) pg MCHC 31.6 (31.0-37.0) g/dL RDW 15.9 H (11.5-15.5) % Plt Count 186 (150-450) k/uL MPV 9.3 Neutrophils % 76 % Lymphocytes % 18 % Monocytes % 3 % Eosinophils % 1 % Basophils % 0 % Neutrophils # 15.8 H (1.3-7.7) k/uL Lymphocytes # 3.7 (1.0-4.8) k/uL Monocytes # 0.7 (0-1.0) k/uL Eosinophils # 0.2 (0-0.7) k/uL Basophils # 0.0 (0-0.2) k/uL Hypochromasia Slight PT 12.6 H (10.0-12.5) sec INR 1.2 H (<1.2) APTT 26.3 (22.0-30.0) sec Sodium (137-145) mmol/L Potassium (3.5-5.1) mmol/L Chloride (98-107) mmol/L Carbon Dioxide (22-30) mmol/L Anion Gap mmol/L BUN (9-20) mg/dL Creatinine (0.66-1.25) mg/dL Est GFR (CKD-EPI)AfAm (>60 ml/min/1.73 sqM) Est GFR (CKD-EPI)NonAf (>60 ml/min/1.73 sqM) Glucose (74-99) mg/dL POC Glucose (mg/dL) (70-110) mg/dL POC Glu Risk Mgr ID Calcium (8.4-10.2) mg/dL Total Bilirubin (0.2-1.3) mg/dL AST (17-59) U/L ALT (4-49) U/L Alkaline Phosphatase (38-126) U/L Ammonia (<30) umol/L Troponin I (0.000-0.034) ng/mL Total Protein (6.3-8.2) g/dL Albumin (3.5-5.0) g/dL Urine Color Light Yellow Urine Appearance Clear (Clear) Urine pH 6.5 (5.0-8.0) Ur Specific [place] 1.042 H (1.001-1.035) Urine Protein Negative (Negative) Urine Glucose (UA) Negative (Negative) Urine Ketones 2+ H (Negative) Urine Blood Negative (Negative) Urine Nitrite Negative (Negative) Urine Bilirubin Negative (Negative) Urine Urobilinogen <2.0 (<2.0) mg/dL Ur Leukocyte Esterase Small H (Negative) Urine RBC 2 (0-5) /hpf Urine WBC 12 H (0-5) /hpf Ur Squamous Epith Cells 2 (0-4) /hpf Hyaline Casts 6 H (0-2) /lpf Urine Mucus Occasional H (None) /hpf Urine Opiates Screen Not Detected (NotDetected) Ur Oxycodone Screen Not Detected (NotDetected) Urine Methadone Screen Not Detected (NotDetected) Ur Barbiturates Screen Not Detected (NotDetected) U Tricyclic Antidepress Not Detected (NotDetected) Ur Phencyclidine Scrn Not Detected (NotDetected) Ur Amphetamines Screen Not Detected (NotDetected) U Methamphetamines Scrn Not Detected (NotDetected) U Benzodiazepines Scrn Not Detected (NotDetected) Urine Cocaine Screen Not Detected (NotDetected) U Marijuana (THC) Screen Not Detected (NotDetected) Serum Alcohol mg/dL 01/18/24 01/18/24 01/18/24 Range/Units 15:30 15:30 15:30 WBC (3.8-10.6) k/uL RBC (4.30-5.90) m/uL Hgb (13.0-17.5) gm/dL Hct (39.0-53.0) % MCV (80.0-100.0) fL MCH (25.0-35.0) pg MCHC (31.0-37.0) g/dL RDW (11.5-15.5) % Plt Count (150-450) k/uL MPV Neutrophils % % Lymphocytes % % Monocytes % % Eosinophils % % Basophils % % Neutrophils # (1.3-7.7) k/uL Lymphocytes # (1.0-4.8) k/uL Monocytes # (0-1.0) k/uL Eosinophils # (0-0.7) k/uL Basophils # (0-0.2) k/uL Hypochromasia PT (10.0-12.5) sec INR (<1.2) APTT (22.0-30.0) sec Sodium 131 L (137-145) mmol/L Potassium 4.7 (3.5-5.1) mmol/L Chloride 100 (98-107) mmol/L Carbon Dioxide 22 (22-30) mmol/L Anion Gap 9 mmol/L BUN 9 (9-20) mg/dL Creatinine 0.70 (0.66-1.25) mg/dL Est GFR (CKD-EPI)AfAm >90 (>60 ml/min/1.73 sqM) Est GFR (CKD-EPI)NonAf >90 (>60 ml/min/1.73 sqM) Glucose 117 H (74-99) mg/dL POC Glucose (mg/dL) (70-110) mg/dL POC Glu Risk Mgr ID Calcium 8.4 (8.4-10.2) mg/dL Total Bilirubin 0.7 (0.2-1.3) mg/dL AST 51 (17-59) U/L ALT 22 (4-49) U/L Alkaline Phosphatase 161 H (38-126) U/L Ammonia 16 (<30) umol/L Troponin I 0.022 (0.000-0.034) ng/mL Total Protein 5.8 L (6.3-8.2) g/dL Albumin 3.4 L (3.5-5.0) g/dL Urine Color Urine Appearance (Clear) Urine pH (5.0-8.0) Ur Specific [place] (1.001-1.035) Urine Protein (Negative) Urine Glucose (UA) (Negative) Urine Ketones (Negative) Urine Blood (Negative) Urine Nitrite (Negative) Urine Bilirubin (Negative) Urine Urobilinogen (<2.0) mg/dL Ur Leukocyte Esterase (Negative) Urine RBC (0-5) /hpf Urine WBC (0-5) /hpf Ur Squamous Epith Cells (0-4) /hpf Hyaline Casts (0-2) /lpf Urine Mucus (None) /hpf Urine Opiates Screen (NotDetected) Ur Oxycodone Screen (NotDetected) Urine Methadone Screen (NotDetected) Ur Barbiturates Screen (NotDetected) U Tricyclic Antidepress (NotDetected) Ur Phencyclidine Scrn (NotDetected) Ur Amphetamines Screen (NotDetected) U Methamphetamines Scrn (NotDetected) U Benzodiazepines Scrn (NotDetected) Urine Cocaine Screen (NotDetected) U Marijuana (THC) Screen (NotDetected) Serum Alcohol <10 mg/dL 01/18/24 Range/Units 15:52 WBC (3.8-10.6) k/uL RBC (4.30-5.90) m/uL Hgb (13.0-17.5) gm/dL Hct (39.0-53.0) % MCV (80.0-100.0) fL MCH (25.0-35.0) pg MCHC (31.0-37.0) g/dL RDW (11.5-15.5) % Plt Count (150-450) k/uL MPV Neutrophils % % Lymphocytes % % Monocytes % % Eosinophils % % Basophils % % Neutrophils # (1.3-7.7) k/uL Lymphocytes # (1.0-4.8) k/uL Monocytes # (0-1.0) k/uL Eosinophils # (0-0.7) k/uL Basophils # (0-0.2) k/uL Hypochromasia PT (10.0-12.5) sec INR (<1.2) APTT (22.0-30.0) sec Sodium (137-145) mmol/L Potassium (3.5-5.1) mmol/L Chloride (98-107) mmol/L Carbon Dioxide (22-30) mmol/L Anion Gap mmol/L BUN (9-20) mg/dL Creatinine (0.66-1.25) mg/dL Est GFR (CKD-EPI)AfAm (>60 ml/min/1.73 sqM) Est GFR (CKD-EPI)NonAf (>60 ml/min/1.73 sqM) Glucose (74-99) mg/dL POC Glucose (mg/dL) 122 H (70-110) mg/dL POC Glu Risk Mgr ID Nhung Ramirez Calcium (8.4-10.2) mg/dL Total Bilirubin (0.2-1.3) mg/dL AST (17-59) U/L ALT (4-49) U/L Alkaline Phosphatase (38-126) U/L Ammonia (<30) umol/L Troponin I (0.000-0.034) ng/mL Total Protein (6.3-8.2) g/dL Albumin (3.5-5.0) g/dL Urine Color Urine Appearance (Clear) Urine pH (5.0-8.0) Ur Specific [place] (1.001-1.035) Urine Protein (Negative) Urine Glucose (UA) (Negative) Urine Ketones (Negative) Urine Blood (Negative) Urine Nitrite (Negative) Urine Bilirubin (Negative) Urine Urobilinogen (<2.0) mg/dL Ur Leukocyte Esterase (Negative) Urine RBC (0-5) /hpf Urine WBC (0-5) /hpf Ur Squamous Epith Cells (0-4) /hpf Hyaline Casts (0-2) /lpf Urine Mucus (None) /hpf Urine Opiates Screen (NotDetected) Ur Oxycodone Screen (NotDetected) Urine Methadone Screen (NotDetected) Ur Barbiturates Screen (NotDetected) U Tricyclic Antidepress (NotDetected) Ur Phencyclidine Scrn (NotDetected) Ur Amphetamines Screen (NotDetected) U Methamphetamines Scrn (NotDetected) U Benzodiazepines Scrn (NotDetected) Urine Cocaine Screen (NotDetected) U Marijuana (THC) Screen (NotDetected) Serum Alcohol mg/dL - EKG Data -: EKG Interpreted by Me (EKG is sinus tachycardia 112 CT 144 QRS 92 QTc 381) - Radiology Data Radiology results: report reviewed (CT brain chest abdomen pelvis positive for duodenitis), image reviewed Disposition Clinical Impression: Duodenitis, Altered mental status Disposition: ADMITTED IP TO THIS [facility] Condition: Fair Is patient prescribed a controlled substance at d/c from ED?: No Time of Disposition: 20:30
[2024-01-18 15:54] LABS: Glucose,Whole Blood 122 mg/dL (70-110)
[2024-01-18] MEDS: SODIUM CHLORIDE 0.9% 1,000 ML IV ONE (16:01)
[2024-01-18 16:09] LABS: Basophils % (A) 0 %; Eosinophils # (A) 0.2 k/uL (0-0.7); Eosinophils % (A) 1 %; HCT 35.5 % (39.0-53.0); HGB 11.2 gm/dL (13.0-17.5); Hypochromasia Slight; Lymphocytes # (A) 3.7 k/uL (1.0-4.8); Lymphocytes % (A) 18 %; MCH 29.9 pg (25.0-35.0); MCHC 31.6 g/dL (31.0-37.0); MCV 94.8 fL (80.0-100.0); Mean Platelet Volume 9.3; Monocytes # (A) 0.7 k/uL (0-1.0); Monocytes % (A) 3 %; Neutrophils # (A) 15.8 k/uL (1.3-7.7); Neutrophils % (A) 76 %; Platelet Count 186 k/uL (150-450); RBC 3.74 m/uL (4.30-5.90); RDW 15.9 % (11.5-15.5); WBC 20.8 k/uL (3.8-10.6)
[2024-01-18 16:17] LABS: INR 1.2 (<1.2); Partial Thromboplastin Time 26.3 sec (22.0-30.0); Prothrombin Time 12.6 sec (10.0-12.5)
--- NOTE | 2024-01-18 16:45 | CT ---
EXAMINATION TYPE: CT brain wo con DATE OF EXAM: 01/18/2024 4:20 PM COMPARISON: None. CLINICAL INDICATION: Male, 73 years old with history of Altered mental status, AMS. Weakness. TECHNIQUE: Brain: Axial CT images of the brain were obtained with coronal and sagittal reformats created and rev iewed. Contrast used: None. Oral contrast used: None. CT DLP: 1091.9 mGycm, Automated exposure control for dose reduction was used. FINDINGS: Brain: Extra-axial spaces: No abnormal extra-axial fluid collections. Ventricular system: Dilatation in proportion to cerebral atrophy. Cerebral parenchyma: Cerebral atrophy. No acute intraparenchymal hemorrhage or mass effect. The alvarenga -white junction is well differentiated. Scattered hypoattenuating areas are seen within the white mat ter. Cerebellum: Unremarkable. Mass effect: No evidence of midline shift. Intracranial vasculature: Atherosclerotic calcifications of the intracranial vessels. Soft tissues: Normal. Calvarium/osseous structures: No depressed skull fracture. Paranasal sinuses and mastoid air cells: Mild scattered paranasal sinus disease. Visualized orbits: Bilateral aphakia IMPRESSION: 1. No acute intracranial process. 2. Nonspecific white matter changes, likely secondary to chronic small vessel ischemic disease. [facility], , 01/18/2024 4:43 PM
[2024-01-18 16:48] LABS: ALT 22 U/L (4-49); AST 51 U/L (17-59); African American GFR (CKD) >90 (>60 ml/min/1.73 sqM); Albumin 3.4 g/dL (3.5-5.0); Alcohol <10 mg/dL; Alkaline Phosphatase 161 U/L (38-126); Anion Gap 9 mmol/L; Blood Urea Nitrogen 9 mg/dL (9-20); Calcium 8.4 mg/dL (8.4-10.2); Carbon Dioxide 22 mmol/L (22-30); Chloride 100 mmol/L (98-107); Glucose 117 mg/dL (74-99); Non-African American GFR(CKD) >90 (>60 ml/min/1.73 sqM); Potassium 4.7 mmol/L (3.5-5.1); Sodium 131 mmol/L (137-145); Total Bilirubin 0.7 mg/dL (0.2-1.3); Total Protein 5.8 g/dL (6.3-8.2)
[2024-01-18] MEDS: methylPREDNISolone SOD SUCCI 125 MG/2 ML VIAL IV STA (18:20)
[2024-01-18] MEDS: IPRATROPIUM-ALBUTEROL 3 ML NEB INHALATION STA (18:57)
--- NOTE | 2024-01-18 20:10 | CT ---
EXAMINATION TYPE: CT angio chest DATE OF EXAM: 01/18/2024 7:44 PM COMPARISON: None. CLINICAL INDICATION: Male, 73 years old with history of pain, Confused disorientation. hx pancreatic ca. wekness pale. High white blood cell count., TECHNIQUE: Axial CT was performed with sagittal and coronal reformats. 3D reconstruction and/or MIP imaging was also performed on a separate workstation. IV CONTRAST: with IV Contrast, patient injected with 100ml mL of Isovue 370. (None if empty) CT DLP: Combined 1049.2 mGycm, Automated exposure control for dose reduction was used. FINDINGS: PULMONARY ARTERIES: The pulmonary arteries and their major tributaries are patent. I do not see torsten dence for sizable filling defect to suggest pulmonary embolic process. LUNGS: [id number] emphysematous changes present. The lungs are clear and free of infiltrate. No evidence for atelectasis. No pulmonary nodule or mass is detected. No pleural effusion. MEDIASTINUM: Thoracic aorta is of normal caliber,however, evaluation is limited given timing of the contrast bolus. If there is concern for thoracic aortic pathology consider JUAN PABLO. Correlate clinicall y . The heart is not enlarged. No evidence for mediastinal mass. No mediastinal lymph nodes greater than 1cm. HILAR STRUCTURES: No evidence for mass. No hilar lymph nodes greater than 1 cm. UPPER ABDOMEN: Postoperative changes upper abdomen. Left renal cyst. IMPRESSION: 1. No evidence for Pulmonary embolism at this time. [facility], , 01/18/2024 8:08 PM
--- NOTE | 2024-01-18 20:21 | CT ---
EXAMINATION TYPE: CT abdomen pelvis w con DATE OF EXAM: 01/18/2024 7:44 PM COMPARISON: None. CLINICAL INDICATION: Male, 73 years old with history of pain, Confused disorientation. hx pancreatic ca. wekness pale. High white blood cell count. TECHNIQUE:CT scan of the abdomen and pelvis is performed without Oral Contrast and with IV Contrast, patient injected with 100ml mL of Isovue 370. CT DLP: Combined 1049.2 mGycm, Automated exposure control for dose reduction was used. FINDINGS: LUNG BASES-: No visible nodule. No infiltrate. LIVER/GB: The gallbladder is surgically absent. There is evidence of hepatic steatosis. No space occu pying hepatic lesion. Biliary tree is of normal caliber. PANCREAS: Ill-definition of the pancreatic head. The remainder of the pancreas is atrophic. Underlyin g mass is not excluded based on this study. SPLEEN: No splenic enlargement. No lesion seen. ADRENALS: No nodule. No thickening. KIDNEYS/BLADDER: No hydronephrosis. No nephrolithiasis. No distinct solid renal mass. Stable exop hytic cyst upper pole left kidney. Limited evaluation of the urinary bladder. BOWEL: There is edema involving the descending duodenum with child may reflect duodenitis. Postoperat brenda changes about the stomach. The gallbladder is not clearly visualized. GENITAL ORGANS: No gross abnormality. LYMPH NODES: No greater than 1cm abdominal or pelvic lymph nodes are appreciated. AORTA: No significant abnormality. OSSEOUS STRUCTURES: Right hip prosthesis with streak limiting artifact. OTHER: Subcutaneous seroma is slightly smaller in size and currently measures 4.2 x 2.6 cm versus 5.6 x 3.2 cm previously. There is noted air within the seroma or collection is no longer evident. Infect ed collection is not excluded. IMPRESSION: 1. There appears to be wall thickening and inflammatory change involving the descending duodenum whic h may reflect duodenitis. Correlate clinically. No free air is seen. 2. Atrophic changes of the body and tail of the pancreas with ill definition of the pancreatic head. Underlying mass is not excluded. 3. Subcutaneous seroma with infected collection difficult to exclude. [facility], , 01/18/2024 8:18 PM
[2024-01-18] MEDS ORDERED: NALOXONE 0.4 MG/ML 1 ML VIAL IV PRN (20:31)
[2024-01-18] MEDS ORDERED: ONDANSETRON 4 MG/2 ML VIAL IVP PRN (20:31)
[2024-01-18] MEDS: AMPICILLIN-SULBACTAM 3 GM in SODIUM CHLORIDE 0.9% 100 ML IVPB STA (21:12)
[2024-01-18] MEDS: SODIUM CHLORIDE 0.9% 1,000 ML IV SCH (21:13)
[2024-01-18 21:40] LABS: Appearance,Urine Clear (Clear); Bilirubin,Urine Negative (Negative); Blood,Urine Negative (Negative); Color,Urine Light Yellow; Glucose,Urine (UA) Negative (Negative); Hyaline Casts,Urine 6 /lpf (0-2); Ketones,Urine 2+ (Negative); Leukocyte Esterase,Urine Small (Negative); Mucus,Urine Occasional /hpf; Nitrite,Urine Negative (Negative); PH, Urine 6.5 (5.0-8.0); Protein,Urine Negative (Negative); RBC,Urine 2 /hpf (0-5); Specific Gravity,Urine 1.042 (1.001-1.035); Squamous Epithelial Cell,Urine 2 /hpf (0-4); Urobilinogen,Urine <2.0 mg/dL (<2.0); WBC,Urine 12 /hpf (0-5)
[2024-01-18 21:52] LABS: Amphetamine Screen,Urine Not Detected (NotDetected); Barbiturate Screen,Urine Not Detected (NotDetected); Benzodiazepines Screen,Urine Not Detected (NotDetected); Cocaine Screen,Urine Not Detected (NotDetected); Methadone Screen, Urine Not Detected (NotDetected); Opiate Screen,Urine Not Detected (NotDetected); Oxycodone Screen, Urine Not Detected (NotDetected); Phencyclidine Screen,Urine Not Detected (NotDetected); Tricyclic Antidepressant,Urine Not Detected (NotDetected); Urn Cannabinoid Scrn Not Detected (NotDetected)
[2024-01-19] MEDS ORDERED: DEXTROSE 50% SYRINGE 50 ML IVP PRN ×2 (00:16)
--- NOTE | 2024-01-19 02:05 | P.HPIM ---
History of Present Illness H&P Date: 01/18/24 History of present illness; 73-year-old man with a PMH of pancreatic cancer, B- cell leukemia, COPD, diabetes mellitus, hyperlipidemia, hypertension and hypothyroidism. He presents to the emergency department for evaluation of his mental status with a recent hospital discharge. The patient had been hospitalized after Whipple procedure for pancreatic cancer. He presents today due to concern from his family regarding his altered mental status. When seeing the patient at bedside he does not display any outward signs of confusion or altered mentation. He was fully alert and oriented and was able to walk me through the whole process of his whipple procedure. It was done at [facility] on , since that time he has been doing well. He was in the hospital 1 week ago due to him having had several episodes of vomiting. Outside of that episode he states that he has been doing well, without any noted difficulties. He has remained able to carry out all ADLs, does not endorse any abdominal pain or change in bowel habits. At the time of interview he was resting comfortably in bed and does not have any acute complaints. Labratory review: -WBCs 20.8, hemoglobin 11.2, hematocrit 35.5, platelet 186; sodium 131, potassium 4.7, BUN 9, creatinine 0.70, glucose 117, AST 51, ALT 22, alkaline phosphatase 161 -Urinalysis 2+ ketones, small amount leukocyte esterase, 12 urine WBCs -Urine toxicology screen noncontributory Imaging: -CT brain showed no acute intracranial process -CT angiography of the chest showed no evidence of pulmonary embolism at this time -CT abdomen/pelvis showed what appears to be wall thickening and inflammatory change involving the descending duodenum which may reflect duodenitis - no free air seen; atrophic changes of the body and tail of the pancreas with ill- definition of the pancreatic head; subcutaneous seroma with infected collection difficult to exclude -EKG done in the ER showed sinus tachycardia heart rate of 112, no ST segment elevation or depression seen, no T-wave inversions seen; QTc 381 Vitals: -Blood pressure 112/58, heart rate 76, respiratory rate 20, SpO2 96% on room air Patient admitted to internal medicine service REVIEW OF SYSTEMS: CONSTITUTIONAL: No fever, no malaise, no fatigue. HEENT: No recent visual problems or hearing problems. Denied any sore throat. CARDIOVASCULAR: No chest pain, orthopnea, PND, no palpitations, no syncope. PULMONARY: No shortness of breath, no cough, no hemoptysis. GASTROINTESTINAL: No diarrhea, no nausea, no vomiting, no abdominal pain. NEUROLOGICAL: No headaches, no weakness, no numbness. HEMATOLOGICAL: Denies any bleeding or petechiae. GENITOURINARY: Denies any burning micturition, frequency, or urgency. MUSCULOSKELETAL/RHEUMATOLOGICAL: Denies any joint pain, swelling, or any muscle pain. ENDOCRINE: Denies any polyuria or polydipsia. The rest of the 14-point review of systems is negative. PHYSICAL EXAMINATION: GENERAL: The patient is alert and oriented x3, not in any acute distress. Thin appearing. HEENT: Pupils are round and equally reacting to light. EOMI. No scleral icterus. No conjunctival pallor. Normocephalic, atraumatic. No pharyngeal erythema. No thyromegaly. CARDIOVASCULAR: S1 and S2 present. No murmurs, rubs, or gallops. PULMONARY: Chest is clear to auscultation, no wheezing or crackles. ABDOMEN: Soft, nontender, nondistended, normoactive bowel sounds. No palpable organomegaly. Midline incision from whipple procedure is intact without any drainage or erythema. MUSCULOSKELETAL: No joint swelling or deformity. EXTREMITIES: No cyanosis, clubbing, or pedal edema. NEUROLOGICAL: Gross neurological examination did not reveal any focal deficits. SKIN: No rashes. Assessment and plan 73-year-old man with PMH of pancreatic cancer, B-cell leukemia, COPD, diabetes mellitus, hyperlipidemia, hypertension and hypothyroidism. Presents emergency department on his recommendation from his family due to worsening altered mental status. Discussed with the ED and the patient is admitted to the internal medicine service for further evaluation. #Sepsis likely secondary to duodenitis vs infected seroma -CT abdomen/pelvis showed what appears to be wall thickening and inflammatory change involving the descending duodenum which may reflect duodenitis -Started on Unasyn IVPB Q8H in the ED -C/w Unasyn IVPB Q8H -Monitor CBC -Clear liquid diet -Currently receiving 75 cc/h NS -Blood cultures pending -General surgery consulted #Pancreatic adenocarcinoma -Diagnosed with biopsy 06/23/23 -He has completed 6 cycles of the recommended neoadjuvant FOLFIRINOX -Patient underwent Whipple procedure -Continue pancreatic enzymes from home lipase/protease/amylase #CLL -Patient follows with Dr. Kay -Patient has not required treatment per hematology/oncology -Abnormalities in the WBC and differential secondary to the disease -Nothing acute to treat at this time #History of COPD -States he does not have a need to utilize his inhalers he has at home -Not on home O2 #Diabetes mellitus -Maintained at home on 15 units daily prior to the whipple procedure, however after the procedure he has not needed his insulin -Accu-cheks -Low dose sliding scale, monitor for hypoglycemia #Hypertension -Continue home 10 mg Zestril daily #Hypothyroidism -Continue home medication 50 mcg Synthroid daily CODE STATUS: Full Code GI prohylaxis: Protonix 40 mg daily DVT prophylaxis: Lovenox 40 mg daily Dictation was produced using [employer] dictation software. please excuse any grammatical, word or spelling errors. The patient is admitted with an anticipated less than 2 midnight stay as observation status for evaluation of sepsis. A total of 55 minutes was spent on the care of this complex patient more than 50% of the time was spent in counseling and care coordination. I have seen and evaluated the patient today. Discussed with the resident and agree with the residents finding and plan as documented in the resident's note. Changes highlighted in blue font. Past Medical History Past Medical History: Blood Disorder, Cancer, COPD, Diabetes Mellitus, Hyperlipidemia, Hypertension, Thyroid Disorder Additional Past Medical History / Comment(s): Hx pancreatic cancer. 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 "Gets shots in eyes due to Diabetes." History of Any Multi-Drug Resistant Organisms: None Reported Past Surgical History: Joint Replacement Additional Past Surgical History / Comment(s): Right hip replacement, aortic aneurysm repaired, biliary stent placement with revision. abd surgery to remove cancer-Dec 28 Past Anesthesia/Blood Transfusion Reactions: No Reported Reaction Past Psychological History: No Psychological Hx Reported Smoking Status: Former smoker Past Alcohol Use History: None Reported Past Drug Use History: None Reported - Past Family History Father Family Medical History: Cancer Medications and Allergies Home Medications Medication Instructions Recorded Confirmed Type Ferrous Sulfate [Iron (65 MG 325 mg PO DAILY 10/06/21 01/18/24 History Elemental)] Insulin Glargine [Lantus Vial] 5 unit SQ DAILY PRN 10/07/21 01/18/24 History Levothyroxine Sodium [Synthroid] 50 mcg PO DAILY 06/19/23 01/18/24 History Escitalopram [Lexapro] 10 mg PO DAILY 12/11/23 01/18/24 History Aspirin EC [Ecotrin Low Dose] 81 mg PO DAILY 01/18/24 01/18/24 History Enoxaparin [Lovenox] 40 mg SQ DAILY 01/18/24 01/18/24 History Lipase/Protease/Amylase [Sky Pimentel 1 cap PO QID PRN 01/18/24 01/18/24 History 24,000 Units Capsule] Lipase/Protease/Amylase [Sky Pimentel 2 cap PO TID-W/MEALS 01/18/24 01/18/24 History 24,000 Units Capsule] Metoclopramide [Reglan] 5 mg PO Q6H 01/18/24 01/18/24 History Naloxone HCl [Narcan] 4 mg NASAL DIRECTED PRN 01/18/24 01/18/24 History Pantoprazole [Protonix] 40 mg PO DAILY 01/18/24 01/18/24 History lisinopriL [Zestril] 10 mg PO DAILY 01/18/24 01/18/24 History methocarbamoL [Robaxin-750] 750 mg PO Q6H PRN 01/18/24 01/18/24 History Allergies Allergy/AdvReac Type Severity Reaction Status Date / Time codeine AdvReac Nausea & Verified 01/18/24 17:23 Vomiting Physical Exam Vitals: Vital Signs Temp Pulse Resp BP Pulse Ox 01/18/24 20:00 98.6 F 76 20 112/58 96 01/18/24 19:10 78 01/18/24 18:58 80 01/18/24 18:19 81 18 94/55 96 01/18/24 16:30 87 24 102/56 95 01/18/24 16:00 90 24 96/59 95 01/18/24 15:01 102 H 23 84/55 98 01/18/24 14:50 98.3 F 130 H 18 83/58 95 Intake and Output 01/18/24 01/18/24 01/18/24 06:59 14:59 22:59 Output Total 555 Balance -555 Output: Urine 555 Other: Weight 64.41 kg Results CBC & Chem 7: 01/18/24 15:30 01/18/24 15:30 Labs: Abnormal Lab Results - Last 24 Hours (Table) 01/18/24 01/18/24 01/18/24 Range/Units 15:30 15:30 15:30 WBC 20.8 H (3.8-10.6) k/uL RBC 3.74 L (4.30-5.90) m/uL Hgb 11.2 L (13.0-17.5) gm/dL Hct 35.5 L (39.0-53.0) % RDW 15.9 H (11.5-15.5) % Neutrophils # 15.8 H (1.3-7.7) k/uL PT 12.6 H (10.0-12.5) sec INR 1.2 H (<1.2) Sodium (137-145) mmol/L Glucose (74-99) mg/dL POC Glucose (mg/dL) (70-110) mg/dL Alkaline Phosphatase (38-126) U/L Total Protein (6.3-8.2) g/dL Albumin (3.5-5.0) g/dL Ur Specific [place] 1.042 H (1.001-1.035) Urine Ketones 2+ H (Negative) Ur Leukocyte Esterase Small H (Negative) Urine WBC 12 H (0-5) /hpf Hyaline Casts 6 H (0-2) /lpf Urine Mucus Occasional H (None) /hpf 01/18/24 01/18/24 Range/Units 15:30 15:52 WBC (3.8-10.6) k/uL RBC (4.30-5.90) m/uL Hgb (13.0-17.5) gm/dL Hct (39.0-53.0) % RDW (11.5-15.5) % Neutrophils # (1.3-7.7) k/uL PT (10.0-12.5) sec INR (<1.2) Sodium 131 L (137-145) mmol/L Glucose 117 H (74-99) mg/dL POC Glucose (mg/dL) 122 H (70-110) mg/dL Alkaline Phosphatase 161 H (38-126) U/L Total Protein 5.8 L (6.3-8.2) g/dL Albumin 3.4 L (3.5-5.0) g/dL Ur Specific [place] (1.001-1.035) Urine Ketones (Negative) Ur Leukocyte Esterase (Negative) Urine WBC (0-5) /hpf Hyaline Casts (0-2) /lpf Urine Mucus (None) /hpf
[2024-01-19] MEDS: METOCLOPRAMIDE 5 MG TAB PO SCH (02:53)
[2024-01-19] MEDS: LEVOTHYROXINE 50 MCG TAB PO SCH (06:45)
[2024-01-19 08:51] LABS: Glucose,Whole Blood 125 mg/dL (70-110)
[2024-01-19 08:55] LABS: ALT 17 U/L (10-49); AST 33 U/L (14-35); Albumin/Globulin Ratio 1.67 Ratio (1.60-3.17); Alkaline Phosphatase 149 U/L (41-126); BUN/Creat Ratio 20.17 Ratio (12.00-20.00); Blood Urea Nitrogen 12.1 mg/dL (9.0-27.0); Calcium 7.8 mg/dL (8.7-10.3); Chloride 102 mmol/L (96-109); Globulin 1.8 g/dL (1.6-3.3); Glucose 147 mg/dL (70-110); Lipase 5 U/L (14-60); Phosphorus 4.1 mg/dL (2.4-5.1); Potassium 4.7 mmol/L (3.5-5.5); Sodium 136 mmol/L (135-145); Total Bilirubin 0.3 mg/dL (0.3-1.2); Total Protein 4.8 g/dL (6.2-8.2)
[2024-01-19] MEDS ORDERED: NON FORMULARY DRUG (Lipase/Protease/Amylase [Creon Dr 24,000 Unit Capsule] 1 EACH Capsule) PO PRN (09:00)
[2024-01-19] MEDS ORDERED: methocarbamoL 750 MG TAB PO PRN (09:00)
[2024-01-19] MEDS: INSULIN ASPART (NovoLOG) 100 UNIT/ML VIAL SQ SCH (09:04)
[2024-01-19] MEDS: LIPASE 20,000/PROTEASE 63,000/AMYLASE 84,000 PO SCH (09:10)
[2024-01-19] MEDS: ENOXAPARIN 40 MG/0.4 ML SYRINGE SQ SCH (09:10)
[2024-01-19] MEDS: FERROUS SULFATE 325 MG TAB PO SCH (09:10)
[2024-01-19] MEDS: ASPIRIN 81 MG PO SCH (09:10)
[2024-01-19] MEDS: PANTOPRAZOLE 40 MG/10 ML VIAL IV SCH (09:10)
[2024-01-19] MEDS: ESCITALOPRAM 10 MG TAB PO SCH (09:10)
[2024-01-19] MEDS: AMPICILLIN-SULBACTAM 3 GM in SODIUM CHLORIDE 0.9% 100 ML IVPB SCH (09:11)
[2024-01-19] MEDS: NON FORMULARY DRUG (Lipase/Protease/Amylase [Creon Dr 24,000 Unit Capsule] 1 EACH Capsule) PO SCH (09:42)
[2024-01-19 12:24] LABS: Basophils # (A) 0.01 X 10*3/uL (0.00-0.10); Basophils % (A) 0.1 %; Eosinophils # (A) 0 X 10*3/uL (0.04-0.35); Eosinophils % (A) 0 %; HCT 29.1 % (39.6-50.0); HGB 9.1 g/dL (13.0-17.0); Lymphocytes # (A) 3.73 X 10*3/uL (0.90-5.00); Lymphocytes % (A) 33.2 %; MCH 30.3 pg (27.0-32.0); MCHC 31.3 g/dL (32.0-37.0); Mean Platelet Volume 12.9 FL (9.5-12.2); Monocytes # (A) 0.57 X 10*3/uL (0.20-1.00); Monocytes % (A) 5.1 %; NRBC Per 100 WBC 0 X 10*3/uL (0.00-0.01); Neutrophils # (A) 6.84 X 10*3/uL (1.80-7.70); Platelet Count 117 X 10*3/uL (140-440); RDW 16.3 % (11.5-14.5); WBC 11.22 X 10*3/uL (4.50-10.00)
--- NOTE | 2024-01-19 12:56 | P.GSCN ---
History of Present Illness Consult date: 01/19/24 History of present illness: CHIEF COMPLAINT: Altered mental status HISTORY OF PRESENT ILLNESS: This is a 73-year-old male who presented to the hospital with altered mental status. Patient is currently lying in bed comfortably and is alert and orientated 3. Patient denies any abdominal pain. He does report that he is status post for his pancreatic cancer. Patient did have Whipple procedure December 29, 2023 at [facility]. Patient denies any abdominal pain. He denies any nausea or vomiting. Denies any fever chills or sweats. He did have a CT scan of the abdomen and pelvis that reported subcutaneous seroma with infected collection difficult to exclude. Of the seroma is slightly smaller than his previous CT scan. Surgical service consulted in regards to possible infected seroma. Patient is currently on antibiotics. Also note the patient had been in the ER on 01/12/2024 for nausea and vomiting. PAST MEDICAL HISTORY: Pancreatic cancer, leukemia not on treatment, diabetes, hyperlipidemia, hypertension, hypothyroidism PAST SURGICAL HISTORY: Whipple procedure December 29, 2023 for pancreatic cancer, aortic aneurysm repair MEDICATIONS: See below ALLERGIES: See below SOCIAL HISTORY: No illicit drug use. REVIEW OF SYSTEMS: CONSTITUTIONAL: Denies fever or chills. HEENT: Denies blurred vision, vision changes, or eye pain. Denies hemoptysis CARDIOVASCULAR: Denies chest pain or pressure. RESPIRATORY: No shortness of breath. GASTROINTESTINAL: See HPI for pertinent findings HEMATOLOGIC: Denies bleeding disorders. GENITOURINARY: Denies any blood in urine or increased urinary frequency. SKIN: Denies pruitis. Denies rash. PHYSICAL EXAM: VITAL SIGNS: Reviewed GENERAL: Well-developed in no acute distress. HEENT: No sclera icterus. Extraocular movements grossly intact. Moist buccal mucosa. Head is atraumatic, normocephalic. No nasal drainage. ABDOMEN: Soft. Nondistended. Nontender. Midline incision is healing. No erythema. No drainage. Nontender with palpation NEUROLOGIC: Alert and oriented. Cranial nerves II through XII grossly intact. LABORATORY DATA: WBC 20.8 down to 11.2 Hgb 11.2 down to 9.1 platelets 117 Sodium is 136 potassium is 4.7 creatinine 0.6 Total bilirubin 0.3 AST 33 ALT 17 alk phos 149 Ammonia 16 Lipase 5 Drug screen negative serum alcohol level less than 10 IMAGING: CT scan abdomen pelvis reports wall thickening inflammatory change involving the descending duodenum may reflect duodenitis. No free air. Atrophic changes of the body and tail of the pancreas with ill definition of the pancreatic head underlying mass not excluded. Subcutaneous seroma with infected collection diff icult to exclude. Fluid currently measuring 4.2 x 2.6 cm versus 5.6 x 3.2 cm previously on 01/12/2024 CAT scan ASSESSMENT: 1. Anterior abdominal wall seroma noted on CT scan 2. Duodenitis with thickening inflammatory change of the descending duodenum noted on CT 3. History of pancreatic cancer status post Whipple procedure on December 29, 2023 at [facility] PLAN: -Consult IR service for possible drainage of seroma -Continue antibiotics -Continue PPI for possible duodenitis Physician News Videographer note has been reviewed by physician. Signing provider agrees with the documented findings, assessment, and plan of care. Past Medical History Past Medical History: Blood Disorder, Cancer, COPD, Diabetes Mellitus, Hyperlipidemia, Hypertension, Thyroid Disorder Additional Past Medical History / Comment(s): Hx pancreatic cancer. 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 "Gets shots in eyes due to Diabetes." History of Any Multi-Drug Resistant Organisms: None Reported Past Surgical History: Joint Replacement Additional Past Surgical History / Comment(s): Right hip replacement, aortic aneurysm repaired, biliary stent placement with revision. abd surgery to remove cancer-Dec 28 Past Anesthesia/Blood Transfusion Reactions: No Reported Reaction Past Psychological History: No Psychological Hx Reported Smoking Status: Former smoker Past Alcohol Use History: None Reported Past Drug Use History: None Reported - Past Family History Father Family Medical History: Cancer Medications and Allergies Home Medications Medication Instructions Recorded Confirmed Type Ferrous Sulfate [Iron (65 MG 325 mg PO DAILY 10/06/21 01/18/24 History Elemental)] Insulin Glargine [Lantus Vial] 5 unit SQ DAILY PRN 10/07/21 01/18/24 History Levothyroxine Sodium [Synthroid] 50 mcg PO DAILY 06/19/23 01/18/24 History Escitalopram [Lexapro] 10 mg PO DAILY 12/11/23 01/18/24 History Aspirin EC [Ecotrin Low Dose] 81 mg PO DAILY 01/18/24 01/18/24 History Enoxaparin [Lovenox] 40 mg SQ DAILY 01/18/24 01/18/24 History Lipase/Protease/Amylase [Sky Hernandez cap PO QID PRN 01/18/24 01/18/24 History 24,000 Units Capsule] Lipase/Protease/Amylase [Sky Pimentel 2 cap PO TID-W/MEALS 01/18/24 01/18/24 History 24,000 Units Capsule] Metoclopramide [Reglan] 5 mg PO Q6H 01/18/24 01/18/24 History Naloxone HCl [Narcan] 4 mg NASAL DIRECTED PRN 01/18/24 01/18/24 History Pantoprazole [Protonix] 40 mg PO DAILY 01/18/24 01/18/24 History lisinopriL [Zestril] 10 mg PO DAILY 01/18/24 01/18/24 History methocarbamoL [Robaxin-750] 750 mg PO Q6H PRN 01/18/24 01/18/24 History Allergies Allergy/AdvReac Type Severity Reaction Status Date / Time codeine AdvReac Nausea & Verified 01/18/24 17:23 Vomiting Surgical - Exam Vital Signs Temp Pulse Resp BP Pulse Ox 98.3 F 130 H 18 83/58 95 01/18/24 14:50 01/18/24 14:50 01/18/24 14:50 01/18/24 14:50 01/18/24 14:50 Results - Labs 01/19/24 05:37 01/19/24 05:31 Abnormal Lab Results - Last 24 Hours (Table) 01/18/24 01/18/24 01/18/24 Range/Units 15:30 15:30 15:30 WBC 20.8 H (3.8-10.6) k/uL RBC 3.74 L (4.30-5.90) m/uL Hgb 11.2 L (13.0-17.5) gm/dL Hct 35.5 L (39.0-53.0) % MCHC (32.0-37.0) g/dL RDW 15.9 H (11.5-15.5) % Plt Count (140-440) X 10*3/uL MPV (9.5-12.2) FL Immature Gran # (0.00-0.04) X 10*3/uL Neutrophils # 15.8 H (1.3-7.7) k/uL Eosinophils # (0.04-0.35) X 10*3/uL PT 12.6 H (10.0-12.5) sec INR 1.2 H (<1.2) Sodium (137-145) mmol/L Carbon Dioxide (21.6-31.8) mmol/L Anion Gap (4.00-12.00) mmol/L BUN/Creatinine Ratio (12.00-20.00) Ratio Glucose (74-99) mg/dL POC Glucose (mg/dL) (70-110) mg/dL Calcium (8.7-10.3) mg/dL Alkaline Phosphatase (38-126) U/L Total Protein (6.3-8.2) g/dL Albumin (3.5-5.0) g/dL Lipase (14-60) U/L Ur Specific [place] 1.042 H (1.001-1.035) Urine Ketones 2+ H (Negative) Ur Leukocyte Esterase Small H (Negative) Urine WBC 12 H (0-5) /hpf Hyaline Casts 6 H (0-2) /lpf Urine Mucus Occasional H (None) /hpf 01/18/24 01/18/24 01/19/24 Range/Units 15:30 15:52 05:31 WBC (3.8-10.6) k/uL RBC (4.30-5.90) m/uL Hgb (13.0-17.5) gm/dL Hct (39.0-53.0) % MCHC (32.0-37.0) g/dL RDW (11.5-15.5) % Plt Count (140-440) X 10*3/uL MPV (9.5-12.2) FL Immature Gran # (0.00-0.04) X 10*3/uL Neutrophils # (1.3-7.7) k/uL Eosinophils # (0.04-0.35) X 10*3/uL PT (10.0-12.5) sec INR (<1.2) Sodium 131 L (137-145) mmol/L Carbon Dioxide 21.0 L (21.6-31.8) mmol/L Anion Gap 13.00 H (4.00-12.00) mmol/L BUN/Creatinine Ratio 20.17 H (12.00-20.00) Ratio Glucose 117 H 147 H (74-99) mg/dL POC Glucose (mg/dL) 122 H (70-110) mg/dL Calcium 7.8 L (8.7-10.3) mg/dL Alkaline Phosphatase 161 H 149 H (38-126) U/L Total Protein 5.8 L 4.8 L (6.3-8.2) g/dL Albumin 3.4 L 3.0 L (3.5-5.0) g/dL Lipase 5 L (14-60) U/L Ur Specific [place] (1.001-1.035) Urine Ketones (Negative) Ur Leukocyte Esterase (Negative) Urine WBC (0-5) /hpf Hyaline Casts (0-2) /lpf Urine Mucus (None) /hpf 01/19/24 01/19/24 Range/Units 05:37 08:49 WBC 11.22 H (3.8-10.6) k/uL RBC 3.00 L (4.30-5.90) m/uL Hgb 9.1 L (13.0-17.5) gm/dL Hct 29.1 L (39.0-53.0) % MCHC 31.3 L (32.0-37.0) g/dL RDW 16.3 H (11.5-15.5) % Plt Count 117 L (140-440) X 10*3/uL MPV 12.9 H (9.5-12.2) FL Immature Gran # 0.07 H (0.00-0.04) X 10*3/uL Neutrophils # (1.3-7.7) k/uL Eosinophils # 0 L (0.04-0.35) X 10*3/uL PT (10.0-12.5) sec INR (<1.2) Sodium (137-145) mmol/L Carbon Dioxide (21.6-31.8) mmol/L Anion Gap (4.00-12.00) mmol/L BUN/Creatinine Ratio (12.00-20.00) Ratio Glucose (74-99) mg/dL POC Glucose (mg/dL) 125 H (70-110) mg/dL Calcium (8.7-10.3) mg/dL Alkaline Phosphatase (38-126) U/L Total Protein (6.3-8.2) g/dL Albumin (3.5-5.0) g/dL Lipase (14-60) U/L Ur Specific [place] (1.001-1.035) Urine Ketones (Negative) Ur Leukocyte Esterase (Negative) Urine WBC (0-5) /hpf Hyaline Casts (0-2) /lpf Urine Mucus (None) /hpf Diabetes panel 01/18/24 01/19/24 Range/Units 15:30 05:31 Sodium 131 L 136 (137-145) mmol/L Potassium 4.7 4.7 (3.5-5.1) mmol/L Chloride 100 102 (98-107) mmol/L Carbon Dioxide 22 21.0 L (22-30) mmol/L BUN 9 12.1 (9-20) mg/dL Creatinine 0.70 0.6 (0.66-1.25) mg/dL Glucose 117 H 147 H (74-99) mg/dL Calcium 8.4 7.8 L (8.4-10.2) mg/dL AST 51 33 (17-59) U/L ALT 22 17 (4-49) U/L Alkaline Phosphatase 161 H 149 H (38-126) U/L Total Protein 5.8 L 4.8 L (6.3-8.2) g/dL Albumin 3.4 L 3.0 L (3.5-5.0) g/dL Calcium panel 01/18/24 01/19/24 Range/Units 15:30 05:31 Calcium 8.4 7.8 L (8.4-10.2) mg/dL Phosphorus 4.1 (2.4-5.1) mg/dL Albumin 3.4 L 3.0 L (3.5-5.0) g/dL Pituitary panel 01/18/24 01/19/24 Range/Units 15:30 05:31 Sodium 131 L 136 (137-145) mmol/L Potassium 4.7 4.7 (3.5-5.1) mmol/L Chloride 100 102 (98-107) mmol/L Carbon Dioxide 22 21.0 L (22-30) mmol/L BUN 9 12.1 (9-20) mg/dL Creatinine 0.70 0.6 (0.66-1.25) mg/dL Glucose 117 H 147 H (74-99) mg/dL Calcium 8.4 7.8 L (8.4-10.2) mg/dL Adrenal panel 01/18/24 01/19/24 Range/Units 15:30 05:31 Sodium 131 L 136 (137-145) mmol/L Potassium 4.7 4.7 (3.5-5.1) mmol/L Chloride 100 102 (98-107) mmol/L Carbon Dioxide 22 21.0 L (22-30) mmol/L BUN 9 12.1 (9-20) mg/dL Creatinine 0.70 0.6 (0.66-1.25) mg/dL Glucose 117 H 147 H (74-99) mg/dL Calcium 8.4 7.8 L (8.4-10.2) mg/dL Total Bilirubin 0.7 0.3 (0.2-1.3) mg/dL AST 51 33 (17-59) U/L ALT 22 17 (4-49) U/L Alkaline Phosphatase 161 H 149 H (38-126) U/L Total Protein 5.8 L 4.8 L (6.3-8.2) g/dL Albumin 3.4 L 3.0 L (3.5-5.0) g/dL
[2024-01-19 13:21] LABS: Glucose,Whole Blood 122 mg/dL (70-110)
[2024-01-19] MEDS: MORPHINE SULFATE 4 MG/ML SYRINGE IV PRN (14:03)
--- NOTE | 2024-01-19 14:49 | US ---
EXAMINATION TYPE: US viseral fluid drainage with pigtail catheter placement. DATE OF EXAM: 01/19/2024 2:36 PM COMPARISON: CT 01/18/2024 CLINICAL INDICATION:Male, 73 years old with history of fluid collection anterior abdomen TECHNIQUE: Ultrasound guided fluid aspiration with pigtail catheter placement under ultrasound kike kimbrough. PROCEDURE: Informed consent was obtained. Risks including bleeding, infection, damage to surrounding structures, and the potential need for further procedures as well as benefits were explained. All patient questi ons were answered. Initial ultrasound images were taken which showed safest access to fluid collection located at the an terior right abdomen. The patient was prepped and draped. Under sterile technique with 1% lidocaine local anesthesia a 8.5 Sinhala catheter was inserted with trocar technique under ultrasound guidance. The patient tolerated the procedure well without complication. The patient was transferred to [facility] in stable condition. IMPRESSION: Successful ultrasound fluid aspiration of the anterior abdominal wall seroma with chest tube placemen ramez. [facility], , 01/19/2024 2:47 PM
--- NOTE | 2024-01-19 16:41 | P.PN ---
Subjective Progress Note Date: 01/19/24 73-year-old man with a PMH of pancreatic cancer, B-cell leukemia, COPD, diabetes mellitus, hyperlipidemia, hypertension and hypothyroidism. He presents to the emergency department for evaluation of his mental status with a recent hospital discharge at [facility] on Dec 28 after undergoing Whipple procedure. Blood pressure 112/58, heart rate 76, respiratory rate 20, SpO2 96% on room air. WBCs 20.8, hemoglobin 11.2, hematocrit 35.5, platelet 186; sodium 131, potassium 4.7, BUN 9, creatinine 0.70, glucose 117, AST 51, ALT 22, alkaline phosphatase 161. Urinalysis 2+ ketones, small amount leukocyte esterase, 12 urine WBCs. UDS negative. CT brain negative. CTA chest negative for PE. CT AP showed what appears to be wall thickening and inflammatory change involving the descending duodenum which may reflect duodenitis - no free air seen; atrophic changes of the body and tail of the pancreas with ill-definition of the pancreatic head; subcutaneous seroma with infected collection difficult to exclude. EKG done in the ER showed sinus tachycardia heart rate of 112, no ST segment elevation or depression seen, no T-wave inversions seen; QTc 381. 01/18 Patient was seen and examined. Mentation improved. No abdominal pain, nausea or vomiting. Surgery consulted, plans for I&D of seroma. CBC and CMP significant for WBC 11.22, RBC 3, Hg 9.1, Hct 29.1, Plt 117, bicarb 21, AG 13, glu 147, Ca 7.8, alk phos 149, alb 3. Lipase 5. General: non toxic, no distress, appears at stated age Derm: warm, dry Head: atraumatic, normocephalic, symmetric Eyes: EOMI, no lid lag, anicteric sclera Mouth: no lip lesion, mucus membranes moist Cardiovascular: S1S2 reg, no murmur Lungs: CTA bilateral, no rhonchi, no rales , no accessory muscle use Ext: no gross muscle atrophy, no edema, no contractures Neuro: no focal neuro deficits Psych: Alert, oriented, appropriate affect Based on my assessment of this patient, this patient meets a high complexity level of care. Sepsis likely secondary to duodenitis vs infected seroma: Status post IR drainage. Follow cultures. Continue Unasyn 3g IV TID in the meantime. NS at 75 cc/hr. Telemetry monitoring. Follow BCx. Surgery on board. Pancreatic adenocarcinoma: Diagnosed with biopsy 06/23/23. He has completed 6 cycles of the recommended neoadjuvant FOLFIRINOX. Patient underwent Whipple procedure. Continue pancreatic enzymes from home lipase/protease/amylase CLL: Patient follows with Dr. Kay. Transfuse PRBC if Hg < 7 and Plt < 10. Diabetes mellitus: ISS. Accuchecks ACHS. Hypoglycemic precautions. Hypertension: Borderline hypotensive. Hold Lisinopril Hypothyroidism: Synthroid 50 mcg PO QD. History of COPD not in acute exacerbation CODE STATUS: FULL CODE DVT Prophylaxis: Lovenox SQ GI Prophylaxis: Designated medical POA if patient is not able to make medical decisions for themselves: I have reviewed the following tax credit leasing consultant notes: Surgery. I have reviewed the results of the following tests: As above. I have ordered the following tests: CBC and BMP in the AM. I have discussed the care of this patient with the following independent historian: Family. I have independently interpreted the following test below: I have discussed the management of this patient with the following physician: Objective - Vital Signs Vital signs: Vital Signs Temp 97.7 F 01/19/24 13:11 Pulse 68 01/19/24 14:35 Resp 16 01/19/24 14:35 BP 111/57 01/19/24 14:35 Pulse Ox 95 01/19/24 14:35 FiO2 Intake & Output 01/18/24 01/19/24 01/19/24 18:59 06:59 18:59 Intake Total 75 Output Total 555 100 Balance -555 -25 Weight 64.41 kg 64.41 kg Intake: IV 75 Sodium Chloride 0.9% 1, 75 000 ml @ 75 mls/hr IV . [id number] [facility] Rx#:[id number] Output: Urine 555 100 Other: # Voids 2 0 - Labs CBC & Chem 7: 01/19/24 05:37 01/19/24 05:31 Labs: Abnormal Lab Results - Last 24 Hours (Table) 01/18/24 01/18/24 01/19/24 Range/Units 15:30 15:30 05:31 WBC (4.50-10.00) X 10*3/uL RBC (4.40-5.60) X 10*6/uL Hgb (13.0-17.0) g/dL Hct (39.6-50.0) % MCHC (32.0-37.0) g/dL RDW (11.5-14.5) % Plt Count (140-440) X 10*3/uL MPV (9.5-12.2) FL Immature Gran # (0.00-0.04) X 10*3/uL Eosinophils # (0.04-0.35) X 10*3/uL Sodium 131 L (137-145) mmol/L Carbon Dioxide 21.0 L (21.6-31.8) mmol/L Anion Gap 13.00 H (4.00-12.00) mmol/L BUN/Creatinine Ratio 20.17 H (12.00-20.00) Ratio Glucose 117 H 147 H (74-99) mg/dL POC Glucose (mg/dL) (70-110) mg/dL Calcium 7.8 L (8.7-10.3) mg/dL Alkaline Phosphatase 161 H 149 H (38-126) U/L Total Protein 5.8 L 4.8 L (6.3-8.2) g/dL Albumin 3.4 L 3.0 L (3.5-5.0) g/dL Lipase 5 L (14-60) U/L Ur Specific [place] 1.042 H (1.001-1.035) Urine Ketones 2+ H (Negative) Ur Leukocyte Esterase Small H (Negative) Urine WBC 12 H (0-5) /hpf Hyaline Casts 6 H (0-2) /lpf Urine Mucus Occasional H (None) /hpf 01/19/24 01/19/24 01/19/24 Range/Units 05:37 08:49 13:19 WBC 11.22 H (4.50-10.00) X 10*3/uL RBC 3.00 L (4.40-5.60) X 10*6/uL Hgb 9.1 L (13.0-17.0) g/dL Hct 29.1 L (39.6-50.0) % MCHC 31.3 L (32.0-37.0) g/dL RDW 16.3 H (11.5-14.5) % Plt Count 117 L (140-440) X 10*3/uL MPV 12.9 H (9.5-12.2) FL Immature Gran # 0.07 H (0.00-0.04) X 10*3/uL Eosinophils # 0 L (0.04-0.35) X 10*3/uL Sodium (137-145) mmol/L Carbon Dioxide (21.6-31.8) mmol/L Anion Gap (4.00-12.00) mmol/L BUN/Creatinine Ratio (12.00-20.00) Ratio Glucose (74-99) mg/dL POC Glucose (mg/dL) 125 H 122 H (70-110) mg/dL Calcium (8.7-10.3) mg/dL Alkaline Phosphatase (38-126) U/L Total Protein (6.3-8.2) g/dL Albumin (3.5-5.0) g/dL Lipase (14-60) U/L Ur Specific [place] (1.001-1.035) Urine Ketones (Negative) Ur Leukocyte Esterase (Negative) Urine WBC (0-5) /hpf Hyaline Casts (0-2) /lpf Urine Mucus (None) /hpf
[2024-01-19 17:27] LABS: Glucose,Whole Blood 143 mg/dL (70-110)
[2024-01-19 20:53] LABS: Glucose,Whole Blood 168 mg/dL (70-110)
[2024-01-20 05:44] LABS: Glucose,Whole Blood 94 mg/dL (70-110)
[2024-01-20 06:27] LABS: HCT 29.6 % (39.0-53.0); Hypochromasia Moderate; MCH 30.6 pg (25.0-35.0); MCV 95.7 fL (80.0-100.0); Mean Platelet Volume 10.1; Platelet Count 118 k/uL (150-450); RBC 3.09 m/uL (4.30-5.90); RDW 15.8 % (11.5-15.5); WBC 6.6 k/uL (3.8-10.6)
[2024-01-20 06:28] LABS: HGB 9.5 gm/dL (13.0-17.5)
[2024-01-20 06:41] LABS: African American GFR (CKD) >90 (>60 ml/min/1.73 sqM); Anion Gap 3 mmol/L; Blood Urea Nitrogen 9 mg/dL (9-20); Calcium 7.6 mg/dL (8.4-10.2); Carbon Dioxide 23 mmol/L (22-30); Chloride 108 mmol/L (98-107); Glucose 94 mg/dL (74-99); Non-African American GFR(CKD) >90 (>60 ml/min/1.73 sqM); Potassium 3.4 mmol/L (3.5-5.1); Sodium 134 mmol/L (137-145)
--- NOTE | 2024-01-20 07:39 | P.PN ---
Progress Note - Text Progress Note Date: 01/20/24 No acute events overnight. Patient tolerating CLD. Vital Signs Stable PHYSICAL EXAM: VITAL SIGNS: Reviewed GENERAL: Well-developed in no acute distress. HEENT: No sclera icterus. Extraocular movements grossly intact. Moist buccal mucosa. Head is atraumatic, normocephalic. No nasal drainage. ABDOMEN: Soft. Nondistended. Nontender. Midline incision is healing. No erythema. No drainage. Nontender with palpation NEUROLOGIC: Alert and oriented. Cranial nerves II through XII grossly intact. IMAGING: CT scan abdomen pelvis reports wall thickening inflammatory change involving the descending duodenum may reflect duodenitis. No free air. Atrophic changes of the body and tail of the pancreas with ill definition of the pancreatic head underlying mass not excluded. Subcutaneous seroma with infected collection difficult to exclude. Fluid currently measuring 4.2 x 2.6 cm versus 5.6 x 3.2 cm previously on 01/12/2024 CAT scan ASSESSMENT: 1. Anterior abdominal wall seroma noted on CT scan 2. Duodenitis with thickening inflammatory change of the descending duodenum noted on CT 3. History of pancreatic cancer status post Whipple procedure on December 29, 2023 at [facility] PLAN: -Consult IR service for possible drainage of seroma -Advanced to Full Liquid Diet -Continue antibiotics -Continue PPI for possible duodenitis Eulalio Bourne DO [facility] [phone]
[2024-01-20] MEDS: POTASSIUM CHLORIDE ER 20 MEQ TAB.ER PO STA (08:40)
[2024-01-20 12:14] LABS: Glucose,Whole Blood 109 mg/dL (70-110)
--- NOTE | 2024-01-20 12:44 | P.PN ---
Subjective Progress Note Date: 01/20/24 73-year-old man with a PMH of pancreatic cancer, B-cell leukemia, COPD, diabetes mellitus, hyperlipidemia, hypertension and hypothyroidism. He presents to the emergency department for evaluation of altered mentation. Recently admitted at [facility] on Dec 28 for the Whipple procedure. BP 112/58, HR 76, RR 20, SpO2 96% on RA. CBC showed WBC 20.8, Hg 11.2, Hct 35.5, Plt 186. Coap panel INR 1.2, PT 12.6. CMP Na 131, glucose 117, alkaline phosphatase 161. UA 2+ ketones, small amount LE, 12 WBCs. UDS and EtOH negative. CT brain negative. CTA chest negative for PE. CT AP showed what findings which may reflect duodenitis, no free air seen, atrophic changes of the body and tail of the pancreas with ill-definition of the pancreatic head, subcutaneous seroma with infected collection difficult to exclude. EKG done in the ER showed sinus tachycardia heart rate of 112, with PVCs. Patient was started on Unasyn and admitted for surgery evaluation. IR consulted, underwent fluid aspiration with chest tube placement. 01/19 Patient was seen and examined. Mentation improved. No abdominal pain, nausea or vomiting. Minimal drainage from the chest tube. Apparently seroma fluid Cx was never sent, discussed with RN about sending a specimen. Maintained on Unasyn 3g IV TID. CBC and CMP significant for RBC 3.09, Hg 9.5, Hct 29.6, Plt 118, Na 134, K 3.5, Cl 108, Ca 7.6. General: non toxic, no distress, appears at stated age Derm: warm, dry Head: atraumatic, normocephalic, symmetric Eyes: EOMI, no lid lag, anicteric sclera Mouth: no lip lesion, mucus membranes moist Cardiovascular: S1S2 reg, no murmur Lungs: CTA bilateral, no rhonchi, no rales , no accessory muscle use Ext: no gross muscle atrophy, no edema, no contractures Neuro: no focal neuro deficits Psych: Alert, oriented, appropriate affect Based on my assessment of this patient, this patient meets a high complexity level of care. Sepsis likely secondary to duodenitis vs infected seroma: Duodenitis could be related to recent Whipple procedure. Status post IR drainage. Follow cultures. Continue Unasyn 3g IV TID (D2). Telemetry monitoring. Surgery on board. Pancreatic adenocarcinoma: Diagnosed with biopsy 06/23/23. He has completed 6 cycles of the recommended neoadjuvant FOLFIRINOX. Patient underwent Whipple procedure at [facility]. Continue pancreatic enzymes from home lipase/protease/amylase HypoK: KCl 40 meq PO x 1. CLL: Patient follows with Dr. Kay. Transfuse PRBC if Hg < 7 and Plt < 10. Diabetes mellitus: ISS. Accuchecks ACHS. Hypoglycemic precautions. Hypertension: Borderline hypotensive. Hold Lisinopril Hypothyroidism: Synthroid 50 mcg PO QD. History of COPD not in acute exacerbation CODE STATUS: FULL CODE DVT Prophylaxis: Lovenox SQ GI Prophylaxis: Designated medical POA if patient is not able to make medical decisions for themselves: I have reviewed the following data warehouse consultant notes: Surgery. I have reviewed the results of the following tests: CBC, CMP. I have ordered the following tests: CBC and BMP in the AM. I have discussed the care of this patient with the following independent historian: RN, Family. I have independently interpreted the following test below: I have discussed the management of this patient with the following physician: Objective - Vital Signs Vital signs: Vital Signs Temp 97.8 F 01/20/24 07:00 Pulse 60 01/20/24 07:00 Resp 15 01/20/24 07:00 BP 139/61 01/20/24 07:00 Pulse Ox 99 01/20/24 07:00 FiO2 Intake & Output 01/19/24 01/20/24 01/20/24 18:59 06:59 18:59 Intake Total 175 Output Total 380 850 Balance - Weight 64.41 kg Intake: IV 75 Sodium Chloride 0.9% 1, 75 000 ml @ 75 mls/hr IV . [id number] JOSÉ Rx#:[id number] Intake, IV Titration 100 Amount Ampicillin-Sulbactam 3 gm 100 In Sodium Chloride 0.9% 100 ml @ 200 mls/hr IVPB ONCE STA Rx#:[id number] Output: Urine 380 850 Other: # Voids 0 - Labs CBC & Chem 7: 01/20/24 05:46 01/20/24 05:46 Labs: Abnormal Lab Results - Last 24 Hours (Table) 01/19/24 01/19/24 01/19/24 Range/Units 05:31 05:37 08:49 WBC 11.22 H (4.50-10.00) X 10*3/uL RBC 3.00 L (4.40-5.60) X 10*6/uL Hgb 9.1 L (13.0-17.0) g/dL Hct 29.1 L (39.6-50.0) % MCHC 31.3 L (32.0-37.0) g/dL RDW 16.3 H (11.5-14.5) % Plt Count 117 L (140-440) X 10*3/uL MPV 12.9 H (9.5-12.2) FL Immature Gran # 0.07 H (0.00-0.04) X 10*3/uL Eosinophils # 0 L (0.04-0.35) X 10*3/uL Sodium (137-145) mmol/L Potassium (3.5-5.1) mmol/L Chloride (98-107) mmol/L Carbon Dioxide 21.0 L (21.6-31.8) mmol/L Anion Gap 13.00 H (4.00-12.00) mmol/L Creatinine (0.66-1.25) mg/dL BUN/Creatinine Ratio 20.17 H (12.00-20.00) Ratio Glucose 147 H (70-110) mg/dL POC Glucose (mg/dL) 125 H (70-110) mg/dL Calcium 7.8 L (8.7-10.3) mg/dL Alkaline Phosphatase 149 H (41-126) U/L Total Protein 4.8 L (6.2-8.2) g/dL Albumin 3.0 L (3.8-4.9) g/dL Lipase 5 L (14-60) U/L 01/19/24 01/19/24 01/19/24 Range/Units 13:19 17:23 20:52 WBC (4.50-10.00) X 10*3/uL RBC (4.40-5.60) X 10*6/uL Hgb (13.0-17.0) g/dL Hct (39.6-50.0) % MCHC (32.0-37.0) g/dL RDW (11.5-14.5) % Plt Count (140-440) X 10*3/uL MPV (9.5-12.2) FL Immature Gran # (0.00-0.04) X 10*3/uL Eosinophils # (0.04-0.35) X 10*3/uL Sodium (137-145) mmol/L Potassium (3.5-5.1) mmol/L Chloride (98-107) mmol/L Carbon Dioxide (21.6-31.8) mmol/L Anion Gap (4.00-12.00) mmol/L Creatinine (0.66-1.25) mg/dL BUN/Creatinine Ratio (12.00-20.00) Ratio Glucose (70-110) mg/dL POC Glucose (mg/dL) 122 H 143 H 168 H (70-110) mg/dL Calcium (8.7-10.3) mg/dL Alkaline Phosphatase (41-126) U/L Total Protein (6.2-8.2) g/dL Albumin (3.8-4.9) g/dL Lipase (14-60) U/L 01/20/24 01/20/24 Range/Units 05:46 05:46 WBC (4.50-10.00) X 10*3/uL RBC 3.09 L (4.40-5.60) X 10*6/uL Hgb 9.5 L D (13.0-17.0) g/dL Hct 29.6 L (39.6-50.0) % MCHC (32.0-37.0) g/dL RDW 15.8 H (11.5-14.5) % Plt Count 118 L (140-440) X 10*3/uL MPV (9.5-12.2) FL Immature Gran # (0.00-0.04) X 10*3/uL Eosinophils # (0.04-0.35) X 10*3/uL Sodium 134 L (137-145) mmol/L Potassium 3.4 L (3.5-5.1) mmol/L Chloride 108 H (98-107) mmol/L Carbon Dioxide (21.6-31.8) mmol/L Anion Gap (4.00-12.00) mmol/L Creatinine 0.45 L (0.66-1.25) mg/dL BUN/Creatinine Ratio (12.00-20.00) Ratio Glucose (70-110) mg/dL POC Glucose (mg/dL) (70-110) mg/dL Calcium 7.6 L (8.7-10.3) mg/dL Alkaline Phosphatase (41-126) U/L Total Protein (6.2-8.2) g/dL Albumin (3.8-4.9) g/dL Lipase (14-60) U/L
[2024-01-20 17:00] LABS: Glucose,Whole Blood 100 mg/dL (70-110)
[2024-01-20 21:00] LABS: Glucose,Whole Blood 143 mg/dL (70-110)
[2024-01-21 05:53] LABS: Glucose,Whole Blood 103 mg/dL (70-110)
[2024-01-21 07:53] LABS: HCT 34.5 % (39.0-53.0); HGB 10.7 gm/dL (13.0-17.5); Hypochromasia Marked; Mean Platelet Volume 9.6; Platelet Count 118 k/uL (150-450); RBC 3.56 m/uL (4.30-5.90); RDW 15.5 % (11.5-15.5); WBC 6.9 k/uL (3.8-10.6)
[2024-01-21 08:07] LABS: African American GFR (CKD) >90 (>60 ml/min/1.73 sqM); Anion Gap 6 mmol/L; Blood Urea Nitrogen <2 mg/dL (9-20); Carbon Dioxide 21 mmol/L (22-30); Chloride 107 mmol/L (98-107); Glucose 98 mg/dL (74-99); Non-African American GFR(CKD) >90 (>60 ml/min/1.73 sqM); Potassium 3.9 mmol/L (3.5-5.1); Sodium 134 mmol/L (137-145)
[2024-01-21] MEDS: lisinopriL 10 MG TAB PO SCH (08:39)
--- NOTE | 2024-01-21 11:24 | P.PN ---
Progress Note - Text Progress Note Date: 01/21/24 No acute events overnight. Patient tolerating CLD. Vital Signs Stable PHYSICAL EXAM: VITAL SIGNS: Reviewed GENERAL: Well-developed in no acute distress. HEENT: No sclera icterus. Extraocular movements grossly intact. Moist buccal mucosa. Head is atraumatic, normocephalic. No nasal drainage. ABDOMEN: Soft. Nondistended. Nontender. Midline incision is healing. No erythema. No drainage. Nontender with palpation NEUROLOGIC: Alert and oriented. Cranial nerves II through XII grossly intact. IMAGING: CT scan abdomen pelvis reports wall thickening inflammatory change involving the descending duodenum may reflect duodenitis. No free air. Atrophic changes of the body and tail of the pancreas with ill definition of the pancreatic head underlying mass not excluded. Subcutaneous seroma with infected collection difficult to exclude. Fluid currently measuring 4.2 x 2.6 cm versus 5.6 x 3.2 cm previously on 01/12/2024 CAT scan ASSESSMENT: 1. Anterior abdominal wall seroma noted on CT scan 2. Duodenitis with thickening inflammatory change of the descending duodenum noted on CT 3. History of pancreatic cancer status post Whipple procedure on December 29, 2023 at [facility] PLAN: -Consult IR service for possible drainage of seroma -Low Fat Diet -Continue antibiotics -Continue PPI for possible duodenitis Eulalio Bourne DO [facility] [phone]
[2024-01-21 12:18] LABS: Glucose,Whole Blood 127 mg/dL (70-110)
--- NOTE | 2024-01-21 13:08 | P.PN ---
Subjective Progress Note Date: 01/21/24 73-year-old man with a PMH of pancreatic cancer, B-cell leukemia, COPD, diabetes mellitus, hyperlipidemia, hypertension and hypothyroidism. He presents to the emergency department for evaluation of altered mentation. Recently admitted at [facility] on Dec 28 for the Whipple procedure. BP 112/58, HR 76, RR 20, SpO2 96% on RA. CBC showed WBC 20.8, Hg 11.2, Hct 35.5, Plt 186. Coap panel INR 1.2, PT 12.6. CMP Na 131, glucose 117, alkaline phosphatase 161. UA 2+ ketones, small amount LE, 12 WBCs. UDS and EtOH negative. CT brain negative. CTA chest negative for PE. CT AP showed what findings which may reflect duodenitis, no free air seen, atrophic changes of the body and tail of the pancreas with ill-definition of the pancreatic head, subcutaneous seroma with infected collection difficult to exclude. EKG done in the ER showed sinus tachycardia heart rate of 112, with PVCs. Patient was started on Unasyn and admitted for surgery evaluation. IR consulted, underwent fluid aspiration with chest tube placement. Cultures are pending so far. 01/20 Patient was seen and examined. Mentation improved. No abdominal pain, nausea or vomiting. Minimal drainage from the chest tube. Seroma fluid Cx pending. BCx negative so far. Maintained on Unasyn 3g IV TID. CBC and BMP significant for RBC 3.56, Hg 10.7, Hct 34.5, Plt 118, Na 134, bicarb 21, BUN < 2, Cr 0.43, Ca 8. General: non toxic, no distress, appears at stated age Derm: warm, dry Head: atraumatic, normocephalic, symmetric Eyes: EOMI, no lid lag, anicteric sclera Mouth: no lip lesion, mucus membranes moist Cardiovascular: S1S2 reg, no murmur Lungs: CTA bilateral, no rhonchi, no rales , no accessory muscle use Ext: no gross muscle atrophy, no edema, no contractures Neuro: no focal neuro deficits Psych: Alert, oriented, appropriate affect Based on my assessment of this patient, this patient meets a high complexity level of care. Sepsis likely secondary to duodenitis vs infected seroma: Duodenitis could be related to recent Whipple procedure. Status post IR drainage, follow cultures. Continue Unasyn 3g IV TID (D3). Telemetry monitoring. Surgery on board. Pancreatic adenocarcinoma: Diagnosed with biopsy 06/23/23. He has completed 6 cycles of the recommended neoadjuvant FOLFIRINOX. Patient underwent Whipple procedure at [facility]. Continue pancreatic enzymes from home lipase/protease/amylase. CLL: Patient follows with Dr. Kay. Transfuse PRBC if Hg < 7 and Plt < 10. Diabetes mellitus: ISS. Accuchecks ACHS. Hypoglycemic precautions. Hypertension: BP 170/81 this morning. DC IVF. Restart Lisinopril 10 mg PO QD. Hypothyroidism: Synthroid 50 mcg PO QD. History of COPD not in acute exacerbation Resolved: Hypokalemia Cultures are pending. Leukocytosis has resolved on Unasyn. Diet has been upgraded. Anticipate DC in 1-2 days after cultures finalize. CODE STATUS: FULL CODE DVT Prophylaxis: Lovenox SQ GI Prophylaxis: Designated medical POA if patient is not able to make medical decisions for themselves: I have reviewed the following fitness sales consultant notes: Surgery. I have reviewed the results of the following tests: CBC, BMP. I have ordered the following tests: I have discussed the care of this patient with the following independent histori an: RN. I have independently interpreted the following test below: I have discussed the management of this patient with the following physician: Objective - Vital Signs Vital signs: Vital Signs Temp 97.4 F L 01/21/24 07:00 Pulse 58 L 01/21/24 07:00 Resp 16 01/21/24 07:00 BP 170/81 01/21/24 07:00 Pulse Ox 98 01/21/24 07:00 FiO2 Intake & Output 01/20/24 01/21/24 01/21/24 18:59 06:59 18:59 Output Total 500 Balance -500 Output: Urine 500 Other: # Voids 1 # Bowel Movements 1 - Labs CBC & Chem 7: 01/21/24 07:38 01/21/24 07:38 Labs: Abnormal Lab Results - Last 24 Hours (Table) 01/20/24 01/21/24 01/21/24 Range/Units 20:58 07:38 07:38 RBC 3.56 L (4.30-5.90) m/uL Hgb 10.7 L (13.0-17.5) gm/dL Hct 34.5 L (39.0-53.0) % Plt Count 118 L (150-450) k/uL Sodium 134 L (137-145) mmol/L Carbon Dioxide 21 L (22-30) mmol/L BUN <2 L (9-20) mg/dL Creatinine 0.43 L (0.66-1.25) mg/dL POC Glucose (mg/dL) 143 H (70-110) mg/dL Calcium 8.0 L (8.4-10.2) mg/dL Microbiology - Last 24 Hours (Table) 01/19/24 00:38 Blood Culture - Preliminary Blood
[2024-01-21 17:17] LABS: Glucose,Whole Blood 110 mg/dL (70-110)
[2024-01-21 19:50] LABS: Glucose,Whole Blood 131 mg/dL (70-110)
--- NOTE | 2024-01-22 11:28 | P.PN ---
Subjective Progress Note Date: 01/22/24 SURGICAL PROGRESS NOTE CHIEF COMPLAINT: Anterior abdominal wall seroma HISTORY OF PRESENT ILLNESS: Patient denies any abdominal pain. He has had no output from his drain for the last few days. He is tolerating low-fat diet. Denies any nausea or vomiting. Afebrile. WBC 6.9 Hgb 10.7 platelets 118. F luid cultures are negative so far PHYSICAL EXAM: VITAL SIGNS: Reviewed. GENERAL: Well-developed in no acute distress. ABDOMEN: Soft. Nondistended. Nontender. Drain with no output NEUROLOGIC: Alert and oriented. Cranial nerves II through XII grossly intact. ASSESSMENT: 1. Anterior abdominal wall seroma noted on CT scan 2. Duodenitis with thickening inflammatory change of the descending duodenum noted on CT 3. History of pancreatic cancer status post Whipple procedure on December 29, 2023 at [facility] PLAN: -Consult IR service for removal of drain -Patient can be discharged from surgical standpoint -Discharge antibiotics per medicine service -Continue PPI for duodenitis Physician Gun Perforator note has been reviewed by physician. Signing provider agrees with the documented findings, assessment, and plan of care. Objective - Vital Signs Vital signs: Vital Signs Temp 98.8 F 01/22/24 07:15 Pulse 61 01/22/24 07:15 Resp 15 01/22/24 07:15 BP 163/80 01/22/24 07:15 Pulse Ox 95 01/22/24 07:15 FiO2 Intake & Output 01/21/24 01/22/24 01/22/24 18:59 06:59 18:59 Intake Total 560 240 Balance 560 240 Intake: Oral 560 240 Other: # Voids 1 3 - Labs CBC & Chem 7: 01/21/24 07:38 01/21/24 07:38 Labs: Abnormal Lab Results - Last 24 Hours (Table) 01/21/24 01/21/24 Range/Units 12:16 19:49 POC Glucose (mg/dL) 127 H 131 H (70-110) mg/dL Microbiology - Last 24 Hours (Table) 01/20/24 11:05 Gram Stain - Preliminary Aspirate Body Fluid Culture - Preliminary 01/19/24 00:38 Blood Culture - Preliminary Blood
[2024-01-22 11:47] LABS: Glucose,Whole Blood 116 mg/dL (70-110)
[2024-01-22 13:02] VITALS: BP 155/79; PULSE 62; RESP 16; TEMP 98.2
--- NOTE | 2024-01-22 13:23 | P.DS ---
Providers Date of admission: 01/18/24 20:32 Attending physician: Andreas Castanon MD Consults: 01/19/24 00:10 Consult Physician Routine Consulting Provider: Julisa Martin Consult Reason/Comments: Potential infected seroma Do you want consulting provider notified?: Yes, Notify in am Primary care physician: [facility] Course: 73-year-old man with a PMH of pancreatic cancer, B-cell leukemia, COPD, diabetes mellitus, hyperlipidemia, hypertension and hypothyroidism. He presents to the emergency department for evaluation of altered mentation. Recently admitted at [facility] on Dec 28 for the Whipple procedure. BP 112/58, HR 76, RR 20, SpO2 96% on RA. CBC showed WBC 20.8, Hg 11.2, Hct 35.5, Plt 186. Coap panel INR 1.2, PT 12.6. CMP Na 131, glucose 117, alkaline phosphatase 161. UA 2+ ketones, small amount LE, 12 WBCs. UDS and EtOH negative. CT brain negative. CTA chest negative for PE. CT AP showed what findings which may reflect duodenitis, no free air seen, atrophic changes of the body and tail of the pancreas with ill-definition of the pancreatic head, subcutaneous seroma with infected collection difficult to exclude. EKG done in the ER showed sinus tachycardia heart rate of 112, with PVCs. Patient was started on Unasyn and admitted for surgery evaluation. IR consulted, underwent fluid aspiration with drain placement. drain was removed on 01/21 and the patient was discharged home with PO augmentin. Assessment: Sepsis likely secondary to duodenitis vs infected seroma: Duodenitis could be related to recent Whipple procedure. Status post IR drainage, cultures grew no growth. discharged home on 01/21 with PO augmentin. Pancreatic adenocarcinoma: Diagnosed with biopsy 06/23/23. He has completed 6 cycles of the recommended neoadjuvant FOLFIRINOX. Patient underwent Whipple procedure at [facility]. Continue pancreatic enzymes from home lipase/protease/amylase. CLL: Patient follows with Dr. Kay. Transfuse PRBC if Hg < 7 and Plt < 10. Patient Condition at Discharge: Fair Plan - Discharge Summary Discharge Rx Participant: Yes New Discharge Prescriptions: New Amoxic-Pot Clav 875-125Mg [Augmentin 875-125] 1 tab PO Q12HR 1 Days #6 tab No Action Escitalopram [Lexapro] 10 mg PO DAILY Pantoprazole [Protonix] 40 mg PO DAILY Lipase/Protease/Amylase [Sky Pimentel 24,000 Units Capsule] 2 cap PO TID-W/MEALS lisinopriL [Zestril] 10 mg PO DAILY Aspirin EC [Ecotrin Low Dose] 81 mg PO DAILY Metoclopramide [Reglan] 5 mg PO Q6H Ferrous Sulfate [Iron (65 MG Elemental)] 325 mg PO DAILY Insulin Glargine [Lantus Vial] 5 unit SQ DAILY PRN PRN Reason: Blood Sugar - High Levothyroxine Sodium [Synthroid] 50 mcg PO DAILY Lipase/Protease/Amylase [Sky Pimentel 24,000 Units Capsule] 1 cap PO QID PRN PRN Reason: W/SNACK methocarbamoL [Robaxin-750] 750 mg PO Q6H PRN PRN Reason: Muscle Spasm Naloxone HCl [Narcan] 4 mg NASAL DIRECTED PRN PRN Reason: OVERDOSE Enoxaparin [Lovenox] 40 mg SQ DAILY Discharge Medication List Ferrous Sulfate [Iron (65 MG Elemental)] 325 mg PO DAILY 10/06/21 [History] Insulin Glargine [Lantus Vial] 5 unit SQ DAILY PRN 10/07/21 [History] Levothyroxine Sodium [Synthroid] 50 mcg PO DAILY 06/19/23 [History] Escitalopram [Lexapro] 10 mg PO DAILY 12/11/23 [History] Aspirin EC [Ecotrin Low Dose] 81 mg PO DAILY 01/18/24 [History] Enoxaparin [Lovenox] 40 mg SQ DAILY 01/18/24 [History] Lipase/Protease/Amylase [Sky Pimentel 24,000 Units Capsule] 1 cap PO QID PRN 01/18/24 [History] Lipase/Protease/Amylase [Sky Pimentel 24,000 Units Capsule] 2 cap PO TID-W/MEALS 01/18/24 [History] Metoclopramide [Reglan] 5 mg PO Q6H 01/18/24 [History] Naloxone HCl [Narcan] 4 mg NASAL DIRECTED PRN 01/18/24 [History] Pantoprazole [Protonix] 40 mg PO DAILY 01/18/24 [History] lisinopriL [Zestril] 10 mg PO DAILY 01/18/24 [History] methocarbamoL [Robaxin-750] 750 mg PO Q6H PRN 01/18/24 [History] Amoxic-Pot Clav 875-125Mg [Augmentin 875-125] 1 tab PO Q12HR 1 Days #6 tab 01/22/24 [Rx] Follow up Appointment(s)/Referral(s): [facility] [Primary Care Provider] - 1-2 days Discharge Disposition: HOME SELF-CARE
--- NOTE | 2024-01-23 16:30 | CDI ---
Documentation Clarification Form Date: 01/23/2024 04:11:58 PM From: Maira Garcia Phone: Admit Date: 01/18/2024 08:32:00 PM Patient Name: Agusto Paz Visit Number: [id number] Discharge Date: 01/22/2024 02:48:00 PM ATTENTION: The Clinical Documentation Specialists (CDI) and [facility] Coding Staff appreciate your assistance in clarifying documentation. Please respond to the clarification below the line at the bottom and electronically sign. The CDI & [facility] Coding staff will review the response and follow-up if needed. Please note: Queries are made part of the Legal Health Record. If you have any questions, please contact the author of this message via ITS. Doctor/Provider: Demetrio Pulido There is documentation of Sepsis in DS on 01/22/2024 Additional clarification is requested. History/Risk Factors: History of presentillness; 73-year-old man with a PMH ofpancreatic cancer, B-cellleukemia,COPD,diabetes mellitus,hyperlipidemia,hypertensionand hypothyroidism. He presents to the emergency department forevaluationof his mental status with a recent hospital discharge. The patient had been hospitalized afterWhipple procedureforpancreatic cancer. He presents today due to concern from his family regarding hisaltered mental status. Clinical Indicators: vitals on 01/17 Vitals: -Zuwytlmkqsutt819/58, heart rate 76, and respiratory rate 20, SpO2 96% on room air CT scan abdomenpelvis reports wallthickeninginflammatorychange involving the descending duodenummay reflectduodenitis. No free air. Atrophicchanges of the body and tail of the pancreas with ill definition of the pancreatic head underlyingmassnot excluded. Subcutaneousseromawithinfectedcollection difficult to exclude. Ed note 01/17 -Altered Mental Status Stated Complaint:post-opissue,confusion Consult on 01/19/2024. Anterior abdominal wallseromanoted onCT scan Duodenitiswiththickeninginflammatorychange of the descending duodenum noted onCT . History ofpancreatic cancerstatus postWhipple procedureon [facility] On 01/20 PN -Sepsislikely secondary toduodenitisvsinfectedseroma:Duodenitiscould be related torecentWhipple procedure. Status postIRdrainage, follow cultures. Continue Unasyn 3g IV TID (D3). Telemetry monitoring. Surgery on board. Pancreatic adenocarcinoma: Diagnosed withbiopsy06/23/23. He has completed 6 cycles of the recommended neoadjuvant FOLFIRINOX. [facility] Continue pancreatic enzymes from home lipase/protease/amylase Treatment: IR Drainage of seroma ,Continue antibiotics -Continue PPI forpossibleduodenitis Can you please clarify is this sepsis is postoperative]? [ ] Yes, this is post- operative Sepsis [ x ] No , this is not post operative sepsis [ ] Other, please specify [ ] Unable to determine (Template Last Revised: April 2020) MTDD
== END 2024-01-22 14:48 | disposition home or self-care (01) | DRG 872 ==
LOC: EC 14:37 → 6NMEDSUR 20:31 → OBSVTOIN 20:32 → 6NMEDSUR 21:32
PROVIDERS: ADMIT Internal Medicine; ATTEND Internal Medicine
PROC: 0W9F30Z Drainage of Abdominal Wall with Drainage Device, Percutaneous Approach (ICD-10-PCS; principal; 2024-01-19)
DX: A41.9 Sepsis, unspecified organism (principal); C25.9 Malignant neoplasm of pancreas, unspecified; C91.10 Chronic lymphocytic leukemia of B-cell type not having achieved remission; K91.89 Other postprocedural complications and disorders of digestive system; J44.9 Chronic obstructive pulmonary disease, unspecified; I10 Essential (primary) hypertension; E03.9 Hypothyroidism, unspecified; E11.9 Type 2 diabetes mellitus without complications; Z79.4 Long term (current) use of insulin; K29.80 Duodenitis without bleeding; E78.5 Hyperlipidemia, unspecified; M79.81 Nontraumatic hematoma of soft tissue; E87.6 Hypokalemia; I49.3 Ventricular premature depolarization; Z79.890 Hormone replacement therapy; Z79.82 Long term (current) use of aspirin; Z88.5 Allergy status to narcotic agent; Z87.891 Personal history of nicotine dependence; Z96.641 Presence of right artificial hip joint
CPT/HCPCS: 36415; 49405; 70450; 71275; 74177; 76942; 80048; 80053; 80306; 80320; 81001; 82140; 83690; 83735; 84100; 84484; 85025; 85027; 85610; 85730; 87040; 87070; 87205; 93005; 94640; 94760; 96361; 96365; 96375; 99285

== ENCOUNTER 2024-03-18 10:21 | Observation (INO) | payer OTHER, MEDICARE ==
--- NOTE | 2024-03-18 10:51 | ED ---
Nausea/Vomiting/Diarrhea HPI - General Chief complaint: Nausea/Vomiting/Diarrhea Stated complaint: vomiting Time Seen by Provider: 03/18/24 10:35 Source: patient, family, RN notes reviewed Mode of arrival: ambulatory Limitations: no limitations - History of Present Illness Initial comments: This is a 74-year-old male with pancreatic cancer currently on chemotherapy infusion, , B-cell leukemia, COPD, and diabetes presenting to emergency department with his son for complaint of nausea and vomiting over the past few weeks. He denies abdominal pain, hematemesis, diarrhea, constipation, fevers, chills, chest pain, shortness of breath. denies recent travel or known sick contacts. Patient states that he has Zofran that he takes at home with some relief. Denies previous surgical abdominal history. Of note, patient has a history of procedure in December 2023 at [facility] due to history of pancreatic cancer. - Related Data Home Medications Medication Instructions Recorded Confirmed Ferrous Sulfate [Iron (65 MG 325 mg PO DAILY 10/06/21 03/18/24 Elemental)] Insulin Glargine [Lantus Vial] 5 unit SQ DAILY PRN 10/07/21 03/18/24 Levothyroxine Sodium [Synthroid] 50 mcg PO DAILY 06/19/23 03/18/24 Escitalopram [Lexapro] 10 mg PO DAILY 12/11/23 03/18/24 Aspirin EC [Ecotrin Low Dose] 81 mg PO DAILY 01/18/24 03/18/24 Lipase/Protease/Amylase [Sky Pimentel 1 cap PO QID PRN 01/18/24 03/18/24 24,000 Units Capsule] Lipase/Protease/Amylase [Sky Pimentel 2 cap PO TID-W/MEALS 01/18/24 03/18/24 24,000 Units Capsule] Metoclopramide [Reglan] 5 mg PO Q6H 01/18/24 03/18/24 Naloxone HCl [Narcan] 4 mg NASAL DIRECTED PRN 01/18/24 03/18/24 Pantoprazole [Protonix] 40 mg PO DAILY 01/18/24 03/18/24 lisinopriL [Zestril] 10 mg PO DAILY 01/18/24 03/18/24 methocarbamoL [Robaxin-750] 750 mg PO Q6H PRN 01/18/24 03/18/24 Allergies Allergy/AdvReac Type Severity Reaction Status Date / Time codeine AdvReac Nausea & Verified 03/18/24 13:56 Vomiting Review of Systems ROS Statement: Those systems with pertinent positive or pertinent negative responses have been documented in the HPI. ROS Other: All systems not noted in ROS Statement are negative. Past Medical History Past Medical History: Blood Disorder, Cancer, COPD, Diabetes Mellitus, Hyperlipidemia, Hypertension, Thyroid Disorder Additional Past Medical History / Comment(s): Hx pancreatic cancer. 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 "Gets shots in eyes due to Diabetes." History of Any Multi-Drug Resistant Organisms: None Reported Past Surgical History: Joint Replacement Additional Past Surgical History / Comment(s): Right hip replacement, aortic aneurysm repaired, biliary stent placement with revision. abd surgery to remove cancer-Dec 28 Past Anesthesia/Blood Transfusion Reactions: No Reported Reaction Past Psychological History: No Psychological Hx Reported Smoking Status: Former smoker Past Alcohol Use History: None Reported Past Drug Use History: None Reported - Past Family History Father Family Medical History: Cancer General Exam Limitations: no limitations General appearance: alert, in no apparent distress Respiratory exam: Present: normal lung sounds bilaterally. Absent: respiratory distress, wheezes, rales, rhonchi, stridor Cardiovascular Exam: Present: regular rate, normal rhythm, normal heart sounds. Absent: systolic murmur, diastolic murmur, rubs, gallop, clicks GI/Abdominal exam: Present: soft, normal bowel sounds. Absent: distended, tenderness, guarding, rebound, rigid Extremities exam: Present: normal inspection, full ROM, normal capillary refill. Absent: tenderness, pedal edema, joint swelling, calf tenderness Back exam: Present: normal inspection Skin exam: Present: warm, dry, intact, normal color. Absent: rash Course Vital Signs 03/18/24 03/18/24 03/18/24 10:27 13:16 14:28 Temperature 97.7 F 98.3 F Pulse Rate 91 59 L 62 Respiratory 20 18 18 Rate Blood Pressure 88/60 157/83 130/68 O2 Sat by Pulse 96 97 98 Oximetry Medical Decision Making - Medical Decision Making Was pt. sent in by a medical professional or institution (, PA, APPLICATION SUPPORT CONSULTANT, urgent care, hospital, or longterm...) When possible be specific @ -No Did you speak to anyone other than the patient for history (EMS, parent, family, police, friend...)? What history was obtained from this source @ -No Did you review nursing and triage notes (agree or disagree)? Why? @ -I reviewed and agree with nursing and triage notes Were old charts reviewed (outside hosp., previous admission, EMS record, old EKG, old radiological studies, urgent care reports/EKG's, longterm records)? Report findings @ -Reviewed patient's discharge note from 01/18/2024 was noted that patient was admitted to [facility] on 12/29/2023 for Whipple procedure. Patient was admitted in December 2023 for altered mentation underwent extensive workup incl uding CT of the brain, CTA of the chest that were both negative for intracranial normality or pulmonary embolism. CT of the abdomen pelvis concerning for possible duodenitis Differential Diagnosis (chest pain, altered mental status, abdominal pain women, abdominal pain men, vaginal bleeding, weakness, fever, dyspnea, syncope, headache, dizziness, GI bleed, back pain, seizure, CVA, palpatations, mental health, musculoskeletal)? @ -Differential Abdominal Pain Men: Appendicitis, cholecystitis, diverticulosis, ischemic bowel, pancreatitis, hepatitis, UTI, gastroenteritis, AAA, incarcerated hernia, bowel obstruction, constipation, inflammatory bowel, hepatitis, peptic ulcer disease, splenic infarction, perforated viscus, testicular torsion, this is not meant to be an all-inclusive list EKG interpreted by me (3pts min.). @ -None X-rays interpreted by me (1pt min.). @ -None done CT interpreted by me (1pt min.). @ -CT of the abdomen and pelvis with IV contrast reveals no bowel obstruction, new or acute findings noted U/S interpreted by me (1pt. min.). @ -None done What testing was considered but not performed or refused? (CT, X-rays, U/S, labs)? Why? @ -None What meds were considered but not given or refused? Why? @ -None Did you discuss the management of the patient with other professionals (professionals i.e. , PA, APPLICATION SUPPORT CONSULTANT, lab, RT, psych nurse, social services analyst, tape calender, teacher, housing management officer, sample case porter)? Give summary @ -i spoke with sound physician, Dr. Woodward, in regard to patient's presentation and concerning labs of dehydration and persistent nausea. Is recommend that blood cultures to be obtained however hold antibiotic ministration at this time. Was smoking cessation discussed for >3mins.? @ -No Was critical care preformed (if so, how long)? @ -No Were there social determinants of health that impacted care today? How? (Homelessness, low income, unemployed, alcoholism, drug addiction, transportation, low edu. Level, literacy, decrease access to med. care, longterm, rehab)? @ -No Was there de-escalation of care discussed even if they declined (Discuss DNR or withdrawal of care, Hospice)? DNR status @ -No What co-morbidities impacted this encounter? (DM, HTN, Smoking, COPD, CAD, Cancer, CVA, ARF, Chemo, Hep., AIDS, mental health diagnosis, sleep apnea, morbid obesity)? @ -None Was patient admitted / discharged? Hospital course, mention meds given and route, prescriptions, significant lab abnormalities, going to OR and other p ertinent info. @ -Admitted. 74-year-old male presenting with nausea vomiting. Noted to be hypotensive on arrival with a blood pressure of 88/60, afebrile nontachycardic. Physical examination is unremarkable. He is provided with IV fluids and Zofran pending laboratory results. Patient is noted to have a leukocytosis of 12.6 and left shift. With concern for nausea and vomiting and leukocytosis with patient's history of procedure he will undergo CT imaging of the abdomen to rule out abdominal process. On reevaluation patient states that Zofran has helped aid in his nausea. CMP remarkable for dehydration with a sodium of 128, chloride of 93. viral testing is negative, UA unremarkable for infection. CT of the abdomen pelvis is negative. With concern for persistent nausea despite medication and dehydration patient will be admitted to internal medicine with continued fluid hydration. Additionally, was recommended that blood cultures be obtained however will hold initiation of antibiotics at this time as there is no clear source of infection with leukocytosis. Case discussed with my attending Dr. Armenta Undiagnosed new problem with uncertain prognosis? @ -No Drug Therapy requiring intensive monitoring for toxicity (Heparin, Nitro, Insulin, Cardizem)? @ -No Were any procedures done? @ -No Diagnosis/symptom? @ -Dehydration, nausea and vomiting with current cancer diagnosis and chemotherapy, leukocytosis of unspecified origin Acute, or Chronic, or Acute on Chronic? @ -acute Uncomplicated (without systemic symptoms) or Complicated (systemic symptoms)? @ -complicated Side effects of treatment? @ -No Exacerbation, Progression, or Severe Exacerbation? @ -No Poses a threat to life or bodily function? How? (Chest pain, USA, LA, pneumonia, PE, COPD, DKA, ARF, appy, cholecystitis, CVA, Diverticulitis, Homicidal, Suicidal, threat to staff... and all critical care pts) @ -No - Lab Data Result diagrams: 03/18/24 11:29 03/18/24 11:29 Lab Results 03/18/24 03/18/24 03/18/24 Range/Units 11:29 11: 11:29 WBC 21.6 H (3.8-10.6) k/uL RBC 4.60 (4.30-5.90) m/uL Hgb 13.0 (13.0-17.5) gm/dL Hct 39.4 (39.0-53.0) % MCV 85.7 D (80.0-100.0) fL MCH 28.3 (25.0-35.0) pg MCHC 33.1 (31.0-37.0) g/dL RDW 14.9 (11.5-15.5) % Plt Count 121 L (150-450) k/uL MPV 10.1 Neutrophils % 74 % Lymphocytes % 23 % Monocytes % 1 % Eosinophils % 0 % Basophils % 0 % Neutrophils # 16.0 H (1.3-7.7) k/uL Lymphocytes # 4.9 H (1.0-4.8) k/uL Monocytes # 0.1 (0-1.0) k/uL Eosinophils # 0.1 (0-0.7) k/uL Basophils # 0.1 (0-0.2) k/uL Sodium 128 L (137-145) mmol/L Potassium 5.3 H (3.5-5.1) mmol/L Chloride 93 L (98-107) mmol/L Carbon Dioxide 23 (22-30) mmol/L Anion Gap 12 mmol/L BUN 22 H (9-20) mg/dL Creatinine 0.63 L (0.66-1.25) mg/dL Est GFR (CKD-EPI)AfAm >90 (>60 ml/min/1.73 sqM) Est GFR (CKD-EPI)NonAf >90 (>60 ml/min/1.73 sqM) Glucose 132 H (74-99) mg/dL Calcium 9.0 (8.4-10.2) mg/dL Total Bilirubin 1.1 (0.2-1.3) mg/dL AST 90 H (17-59) U/L ALT 88 H (4-49) U/L Alkaline Phosphatase 777 H (38-126) U/L Total Protein 6.8 (6.3-8.2) g/dL Albumin 4.1 (3.5-5.0) g/dL Amylase 39 (30-110) U/L Lipase 14 L (23-300) U/L Urine Color Urine Appearance (Clear) Urine pH (5.0-8.0) Ur Specific [place] (1.001-1.035) Urine Protein (Negative) Urine Glucose (UA) (Negative) Urine Ketones (Negative) Urine Blood (Negative) Urine Nitrite (Negative) Urine Bilirubin (Negative) Urine Urobilinogen (<2.0) mg/dL Ur Leukocyte Esterase (Negative) Influenza Type A (PCR) Not Detected (Not Detectd) Influenza Type B (PCR) Not Detected (Not Detectd) RSV (PCR) Not Detected (Not Detectd) SARS-CoV-2 (PCR) Not Detected (Not Detectd) 03/18/24 Range/Units 13:50 WBC (3.8-10.6) k/uL RBC (4.30-5.90) m/uL Hgb (13.0-17.5) gm/dL Hct (39.0-53.0) % MCV (80.0-100.0) fL MCH (25.0-35.0) pg MCHC (31.0-37.0) g/dL RDW (11.5-15.5) % Plt Count (150-450) k/uL MPV Neutrophils % % Lymphocytes % % Monocytes % % Eosinophils % % Basophils % % Neutrophils # (1.3-7.7) k/uL Lymphocytes # (1.0-4.8) k/uL Monocytes # (0-1.0) k/uL Eosinophils # (0-0.7) k/uL Basophils # (0-0.2) k/uL Sodium (137-145) mmol/L Potassium (3.5-5.1) mmol/L Chloride (98-107) mmol/L Carbon Dioxide (22-30) mmol/L Anion Gap mmol/L BUN (9-20) mg/dL Creatinine (0.66-1.25) mg/dL Est GFR (CKD-EPI)AfAm (>60 ml/min/1.73 sqM) Est GFR (CKD-EPI)NonAf (>60 ml/min/1.73 sqM) Glucose (74-99) mg/dL Calcium (8.4-10.2) mg/dL Total Bilirubin (0.2-1.3) mg/dL AST (17-59) U/L ALT (4-49) U/L Alkaline Phosphatase (38-126) U/L Total Protein (6.3-8.2) g/dL Albumin (3.5-5.0) g/dL Amylase (30-110) U/L Lipase (23-300) U/L Urine Color Yellow Urine Appearance Clear (Clear) Urine pH 5.5 (5.0-8.0) Ur Specific [place] 1.050 H (1.001-1.035) Urine Protein Negative (Negative) Urine Glucose (UA) Negative (Negative) Urine Ketones Trace H (Negative) Urine Blood Negative (Negative) Urine Nitrite Negative (Negative) Urine Bilirubin Negative (Negative) Urine Urobilinogen <2.0 (<2.0) mg/dL Ur Leukocyte Esterase Negative (Negative) Influenza Type A (PCR) (Not Detectd) Influenza Type B (PCR) (Not Detectd) RSV (PCR) (Not Detectd) SARS-CoV-2 (PCR) (Not Detectd) Disposition Clinical Impression: Dehydration, Nausea and vomiting Disposition: ADMITTED IP TO THIS [facility] Condition: Stable Referrals: [facility] [REFERRING] - 1-2 days Decision to Admit Reason: Admit from EC Decision Date: 03/18/24 Decision Time: 13:45
[2024-03-18] MEDS: SODIUM CHLORIDE 0.9% 1,000 ML IV STA (11:19)
[2024-03-18] MEDS: ONDANSETRON 4 MG/2 ML VIAL IVP STA (11:21)
[2024-03-18 11:49] LABS: African American GFR (CKD) >90 (>60 ml/min/1.73 sqM); Anion Gap 12 mmol/L; Blood Urea Nitrogen 22 mg/dL (9-20); Carbon Dioxide 23 mmol/L (22-30); Chloride 93 mmol/L (98-107); Glucose 132 mg/dL (74-99); Sodium 128 mmol/L (137-145)
[2024-03-18 11:50] LABS: ALT 88 U/L (4-49); Albumin 4.1 g/dL (3.5-5.0); Amylase 39 U/L (30-110); Lipase 14 U/L (23-300); Non-African American GFR(CKD) >90 (>60 ml/min/1.73 sqM); Total Bilirubin 1.1 mg/dL (0.2-1.3); Total Protein 6.8 g/dL (6.3-8.2)
[2024-03-18 11:54] LABS: Basophils # (A) 0.1 k/uL (0-0.2); Basophils % (A) 0 %; Eosinophils # (A) 0.1 k/uL (0-0.7); Eosinophils % (A) 0 %; HCT 39.4 % (39.0-53.0); Lymphocytes # (A) 4.9 k/uL (1.0-4.8); Lymphocytes % (A) 23 %; MCH 28.3 pg (25.0-35.0); MCHC 33.1 g/dL (31.0-37.0); Mean Platelet Volume 10.1; Monocytes # (A) 0.1 k/uL (0-1.0); Monocytes % (A) 1 %; Neutrophils % (A) 74 %; Platelet Count 121 k/uL (150-450); RDW 14.9 % (11.5-15.5); WBC 21.6 k/uL (3.8-10.6)
[2024-03-18 12:00] LABS: MCV 85.7 fL (80.0-100.0)
[2024-03-18 12:04] LABS: AST 90 U/L (17-59); Alkaline Phosphatase 777 U/L (38-126); Potassium 5.3 mmol/L (3.5-5.1)
[2024-03-18 12:15] LABS: Influenza A Not Detected (Not Detectd); Influenza B Not Detected (Not Detectd); RSV Not Detected (Not Detectd)
[2024-03-18] MEDS: LACTATED RINGERS 1,000 ML BAG IV STA (13:05)
--- NOTE | 2024-03-18 13:06 | CT ---
EXAMINATION TYPE: CT abdomen pelvis w con DATE OF EXAM: 03/18/2024 COMPARISON: Prior CT January 18, 2024 CLINICAL INDICATION: Male, 74 years old with history of leukocytosis, N/V, hx whipple; PHH, ABD PAIN TECHNIQUE: Performed without Oral Contrast and with IV Contrast, patient injected with 100 mL of Isovue 300. CT DLP: 672.6 mGycm Automated exposure control for dose reduction was used. FINDINGS: LUNG BASES: Small thin-walled cysts in both lung bases are redemonstrated. LIVER/GB: Gallbladder is surgically absent. Liver remains heterogeneously hypodense suggesting diffus e fatty infiltrative hepatocellular disease. PANCREAS: Body and tail of pancreas are atrophic with diffuse ductal dilatation similar to prior. Navi gical change in the pancreatic head is present. SPLEEN: No significant abnormality is seen. ADRENALS: No significant abnormality is seen. KIDNEYS: Large exophytic thin-walled cortical cyst posterior upper pole left kidney is redemonstrated . FREE AIR: No free air is visualized. RETROPERITONEAL ADENOPATHY: None visualized. Surgical clips in the upper to mid abdominal retroperit oneum are again seen. REPRODUCTIVE ORGANS: Slightly enlarged prostate consistent with BPH URINARY BLADDER: No significant abnormality is seen. PELVIC ADENOPATHY: None visualized. OSSEOUS STRUCTURES: Metallic artifact from right hip arthroplasty is redemonstrated this causes stre ak artifact somewhat limiting evaluation of pelvic structures. BOWEL: Surgical changes to distal body of stomach and gastric antrum are redemonstrated. No abnormal small or large bowel dilatation. OTHER: Metallic coils from left inguinal hernia repair surgery in the left groin are redemonstrated. Moderate to severe calcified plaque of the aorta extending into branch vessels is again seen. Small f at-containing right inguinal hernia redemonstrated. IMPRESSION: POSTSURGICAL CHANGES REDEMONSTRATED. NO BOWEL OBSTRUCTION. NO NEW OR ACUTE FINDINGS SEEN. [facility], , 03/18/2024 1:04 PM
[2024-03-18] MEDS ORDERED: NALOXONE 0.4 MG/ML 1 ML VIAL IV PRN (13:45)
[2024-03-18] MEDS ORDERED: ACETAMINOPHEN TAB 325 MG TAB PO PRN (13:45)
[2024-03-18] MEDS ORDERED: IBUPROFEN 400 MG TAB PO PRN (13:45)
[2024-03-18] MEDS ORDERED: ONDANSETRON 4 MG/2 ML VIAL IVP PRN (13:45)
[2024-03-18] MEDS ORDERED: PROCHLORPERAZINE 5 MG TAB PO PRN (13:45)
[2024-03-18 13:57] LABS: Appearance,Urine Clear (Clear); Bilirubin,Urine Negative (Negative); Blood,Urine Negative (Negative); Color,Urine Yellow; Glucose,Urine (UA) Negative (Negative); Ketones,Urine Trace (Negative); Leukocyte Esterase,Urine Negative (Negative); Nitrite,Urine Negative (Negative); PH, Urine 5.5 (5.0-8.0); Protein,Urine Negative (Negative); Urobilinogen,Urine <2.0 mg/dL (<2.0)
[2024-03-18] MEDS: SODIUM CHLORIDE 0.9% 1,000 ML IV SCH (14:25)
[2024-03-18] MEDS ORDERED: methocarbamoL 750 MG TAB PO PRN (14:57)
[2024-03-18] MEDS ORDERED: LIPASE 20,000/PROTEASE 63,000/AMYLASE 84,000 PO PRN (14:57)
[2024-03-18] MEDS: ENOXAPARIN 40 MG/0.4 ML SYRINGE SQ SCH (15:43)
[2024-03-18] MEDS: METOCLOPRAMIDE 5 MG TAB PO SCH (15:43)
--- NOTE | 2024-03-18 15:58 | P.HPIM ---
History of Present Illness H&P Date: 03/18/24 Patient is a 74-year-old male with a of pancreatic cancer s/p Whipple procedure (12/29/2023 at [facility]) currently on chemotherapy infusion (last session on 03/12), COPD (not in exacerbation), diabetes mellitus, hyperlipidemia, hypertension, thyroid disorder, history of B-cell leukemia presenting with vomiting. Patient states that vomiting started yesterday. He describes the vomit as green in color, but denies any blood. He has vomited twice yesterday and twice this morning, and once while in the ED. He states that he usually vomits after his chemotherapy but never as bad as this. Patient denies any abdominal pain, fever, chills, chest pain, shortness of breath, urinary symptoms, diarrhea, constipation. CT abdomen/pelvis showing postsurgical changes, no bowel bookshelves and or no new acute findings seen WBC 21.6, platelet 121, sodium 128, potassium 5.3, AST 90, ALT 88, alk phos 1777 chloride 93, BUN 22, creatinine 0.63 UA showing trace ketones Cepheid negative T 97.9 F, PR91, RR 20, BP 88/60, O2 sat 96% on room air ED documentation reviewed. Patient to be admitted to internal medicine service for evaluation of vomiting. Review of systems: Pertinent positives and negatives as discussed in HPI, a complete review of systems was performed and all other systems are negative. Social history: Tobacco: Former smoker, quit 26 years Alcohol: Occasional alcohol use Recreational drugs: Denies illicit drug use Travel: No recent Physical examination: Vital signs reviewed General: non toxic, no distress, appears at stated age, normal weight Derm: no unusual rashes/lesions, warm Head: atraumatic, normocephalic, symmetric Eyes: EOMI, anicteric sclera, pupils equal round reactive to light ENT: Nose and ears atraumatic Neck: No cervical lymphadenopathy, trachea midline, supple Mouth: no lip lesion, mucus membranes moist Cardiovascular: S1S2 reg, no murmur, positive dorsalis pedis pulse bilateral, no edema Lungs: CTA bilateral, no rhonchi, no rales, no accessory muscle use Abdominal: soft, nontender to palpation, no guarding Ext: muscle strength 5 out of 5 in all 4 extremities grossly, no gross muscle atrophy Neuro: CN II-XI grossly intact, no gross focal neuro deficits Psych: Alert, oriented to person, place, and time Assessment/Plan: Patient is a 74-year-old male with a PMH of pancreatic cancer s/p Whipple pro cedure, COPD (not in exacerbation), diabetes mellitus, hyperlipidemia, hypertension, thyroid disorder, history of B-cell leukemia presenting with vomiting. #. Intractable vomiting in setting of pancreatic cancer #. Mild acute hypovolemic hyponatremia Dehydration Sodium 128 Was given 2 L of normal saline by ED, half liter L by ED Switch normal saline to LR at 75 cc/hr Repeat BMP q6hr TSH ordered Blood cultures ordered by ED Lipase 14, amylase 39 Zofran 4 mg IVP q8hr PRN Continue home Reglan 5 mg p.o. every 6 hours Oncology consulted #. Transaminitis AST 90, ALT 88, alk phos 777 Likely secondary to pancreatic cancer status post Whipple procedure CT abdomen/pelvis showing postsurgical changes, no bowel obstruction and or no new acute findings seen #. Leukocytosis Patient afebrile, no signs of infection Likely reactive Follow-up CBC #. Hyperkalemia Hemolyzed, repeat BMP #. Type 2 diabetes Glucose 132 Insulin sliding scale SQ Accu-Cheks ACHS Hypoglycemic precautions Chronic: Pancreatic cancer status post Whipple procedure: Continue with Creon 2 cap PO AC-TID, ferrous sulfate 325 mg Thyroid disorder: Synthroid 50 mcg PO daily Hypertension: Lisinopril 10 mg PO daily GERD: Protonix 40 mg PO daily Anxiety/depression: Lexapro 10 mg PO daily F: LR at 75 cc/hr E: Replete as needed N: Consistent carbohydrate A: Independently ambulatory DVT prophylaxis: Lovenox 40 SQ daily The patient is admitted as an observation with an anticipated less than 2 midnight stay for evaluation of intractable vomiting. Discussed with: Patient Anticipated discharge place: Home Chioma Garcias MD PGY-1 IM Dictation was produced using [employer] dictation software. please excuse any gramm atical, word or spelling errors. I have seen and evaluated the patient today. Discussed with the resident and agree with the residents finding and plan as documented in the resident's note. Changes highlighted in blue font. Past Medical History Past Medical History: Blood Disorder, Cancer, COPD, Diabetes Mellitus, Hyperlipidemia, Hypertension, Thyroid Disorder Additional Past Medical History / Comment(s): Hx pancreatic cancer. 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 "Gets shots in eyes due to Diabetes." History of Any Multi-Drug Resistant Organisms: None Reported Past Surgical History: Joint Replacement Additional Past Surgical History / Comment(s): Right hip replacement, aortic aneurysm repaired, biliary stent placement with revision. abd surgery to remove cancer-Dec 28 Past Anesthesia/Blood Transfusion Reactions: No Reported Reaction Past Psychological History: No Psychological Hx Reported Smoking Status: Former smoker Past Alcohol Use History: None Reported Past Drug Use History: None Reported - Past Family History Father Family Medical History: Cancer Medications and Allergies Home Medications Medication Instructions Recorded Confirmed Type Ferrous Sulfate [Iron (65 MG 325 mg PO DAILY 10/06/21 03/18/24 History Elemental)] Insulin Glargine [Lantus Vial] 5 unit SQ DAILY PRN 10/07/21 03/18/24 History Levothyroxine Sodium [Synthroid] 50 mcg PO DAILY 06/19/23 03/18/24 History Escitalopram [Lexapro] 10 mg PO DAILY 12/11/23 03/18/24 History Aspirin EC [Ecotrin Low Dose] 81 mg PO DAILY 01/18/24 03/18/24 History Lipase/Protease/Amylase [Sky Pimentel 1 cap PO QID PRN 01/18/24 03/18/24 History 24,000 Units Capsule] Lipase/Protease/Amylase [Sky Pimentel 2 cap PO TID-W/MEALS 01/18/24 03/18/24 History 24,000 Units Capsule] Metoclopramide [Reglan] 5 mg PO Q6H 01/18/24 03/18/24 History Naloxone HCl [Narcan] 4 mg NASAL DIRECTED PRN 01/18/24 03/18/24 History Pantoprazole [Protonix] 40 mg PO DAILY 01/18/24 03/18/24 History lisinopriL [Zestril] 10 mg PO DAILY 01/18/24 03/18/24 History methocarbamoL [Robaxin-750] 750 mg PO Q6H PRN 01/18/24 03/18/24 History Allergies Allergy/AdvReac Type Severity Reaction Status Date / Time codeine AdvReac Nausea & Verified 03/18/24 13:56 Vomiting Physical Exam Vitals: Vital Signs Temp Pulse Resp BP Pulse Ox 03/18/24 13:16 98.3 F 59 L 18 157/83 97 03/18/24 10:27 97.7 F 91 20 88/60 96 Intake and Output 03/17/24 03/18/24 03/18/24 22:59 06:59 14:59 Other: Weight 58.06 kg Results CBC & Chem 7: 03/18/24 11:29 03/18/24 11:29 Labs: Abnormal Lab Results - Last 24 Hours (Table) 03/18/24 03/18/24 Range/Units 11:29 11:29 WBC 21.6 H (3.8-10.6) k/uL Plt Count 121 L (150-450) k/uL Neutrophils # 16.0 H (1.3-7.7) k/uL Lymphocytes # 4.9 H (1.0-4.8) k/uL Sodium 128 L (137-145) mmol/L Potassium 5.3 H (3.5-5.1) mmol/L Chloride 93 L (98-107) mmol/L BUN 22 H (9-20) mg/dL Creatinine 0.63 L (0.66-1.25) mg/dL Glucose 132 H (74-99) mg/dL AST 90 H (17-59) U/L ALT 88 H (4-49) U/L Alkaline Phosphatase 777 H (38-126) U/L Lipase 14 L (23-300) U/L
[2024-03-18] MEDS: LACTATED RINGERS 1,000 ML IV SCH (15:59)
[2024-03-18 17:01] LABS: Glucose,Whole Blood 74 mg/dL (70-110)
[2024-03-18] MEDS: INSULIN ASPART (NovoLOG) 100 UNIT/ML VIAL SQ SCH (17:06)
[2024-03-18] MEDS: LIPASE 20,000/PROTEASE 63,000/AMYLASE 84,000 PO SCH (17:42)
[2024-03-18 20:46] LABS: Glucose,Whole Blood 102 mg/dL (70-110)
[2024-03-18 20:56] LABS: ALT 65 U/L (4-49); AST 64 U/L (17-59); African American GFR (CKD) >90 (>60 ml/min/1.73 sqM); Albumin 2.9 g/dL (3.5-5.0); Alkaline Phosphatase 586 U/L (38-126); Anion Gap 6 mmol/L; Blood Urea Nitrogen 17 mg/dL (9-20); Calcium 8.2 mg/dL (8.4-10.2); Carbon Dioxide 24 mmol/L (22-30); Chloride 97 mmol/L (98-107); Glucose 110 mg/dL (74-99); Non-African American GFR(CKD) >90 (>60 ml/min/1.73 sqM); Potassium 4.3 mmol/L (3.5-5.1); Sodium 127 mmol/L (137-145); Total Bilirubin 0.5 mg/dL (0.2-1.3); Total Protein 5.3 g/dL (6.3-8.2)
[2024-03-19 06:12] LABS: Glucose,Whole Blood 87 mg/dL (70-110)
[2024-03-19] MEDS: LEVOTHYROXINE 50 MCG TAB PO SCH (06:21)
[2024-03-19 07:47] LABS: Glucose,Whole Blood 90 mg/dL (70-110)
[2024-03-19] MEDS: lisinopriL 10 MG TAB PO SCH (08:00)
[2024-03-19] MEDS: FERROUS SULFATE 325 MG TAB PO SCH (08:00)
[2024-03-19] MEDS: ASPIRIN 81 MG PO SCH (08:00)
[2024-03-19] MEDS: PANTOPRAZOLE 40 MG TABLET PO SCH (08:00)
[2024-03-19] MEDS ORDERED: LOPERAMIDE 2 MG CAP PO PRN (08:38)
[2024-03-19] MEDS: ESCITALOPRAM 10 MG TAB PO SCH (08:39)
[2024-03-19 10:48] LABS: HCT 38.4 % (39.6-50.0); HGB 12.2 g/dL (13.0-17.0); MCH 27.4 pg (27.0-32.0); MCHC 31.8 g/dL (32.0-37.0); MCV 86.1 FL (80.0-97.0); Mean Platelet Volume 12.3 FL (9.5-12.2); NRBC Per 100 WBC 0.02 X 10*3/uL (0.00-0.01); Platelet Count 106 X 10*3/uL (140-440); RBC 4.46 X 10*6/uL (4.40-5.60); RDW 14.8 % (11.5-14.5); WBC 11.37 X 10*3/uL (4.50-10.00)
[2024-03-19 10:52] LABS: ALT 69 U/L (10-49); AST 75 U/L (14-35); Albumin 3.6 g/dL (3.8-4.9); Albumin/Globulin Ratio 1.64 Ratio (1.60-3.17); Alkaline Phosphatase 728 U/L (41-126); BUN/Creat Ratio 19.57 Ratio (12.00-20.00); Blood Urea Nitrogen 13.7 mg/dL (9.0-27.0); Calcium 8.6 mg/dL (8.7-10.3); Chloride 97 mmol/L (96-109); Globulin 2.2 g/dL (1.6-3.3); Glucose 109 mg/dL (70-110); Magnesium 1.9 mg/dL (1.5-2.4); Potassium 4.3 mmol/L (3.5-5.5); Sodium 132 mmol/L (135-145); Total Bilirubin 0.5 mg/dL (0.3-1.2); Total Protein 5.8 g/dL (6.2-8.2)
[2024-03-19 12:02] LABS: Glucose,Whole Blood 114 mg/dL (70-110)
--- NOTE | 2024-03-19 12:21 | P.PN ---
Subjective Progress Note Date: 03/19/24 Hospital course: Patient is a 74-year-old male with a of pancreatic cancer s/p Whipple procedure (12/29/2023 at [facility]) currently on chemotherapy infusion (last session on 03/12), COPD (not in exacerbation), diabetes mellitus, hyperlipidemia, hypertension, thyroid disorder, history of B-cell leukemia presenting with vomiting. Patient states that vomiting started yesterday. He describes the vomit as green in color, but denies any blood. He has vomited twice yesterday and twice this morning, and once while in the ED. He states that he usually vomits after his chemotherapy but never as bad as this. Patient denies any abdominal pain, fever, chills, chest pain, shortness of breath, urinary symptoms, diarrhea, constipation. CT abdomen/pelvis showing postsurgical changes, no bowel bookshelves and or no new acute findings seen WBC 21.6, platelet 121, sodium 128, potassium 5.3, AST 90, ALT 88, alk phos 1777 chloride 93, BUN 22, creatinine 0.63 UA showing trace ketones Cepheid negative T 97.9 F, PR91, RR 20, BP 88/60, O2 sat 96% on room air ED documentation reviewed. Patient to be admitted to internal medicine service for evaluation of vomiting. Review of systems: Pertinent positives and negatives as discussed in HPI, a complete review of systems was performed and all other systems are negative. Social history: Tobacco: Former smoker, quit 26 years Alcohol: Occasional alcohol use Recreational drugs: Denies illicit drug use Travel: No recent Subjective: 03/19/2024: Patient seen and evaluated bedside. No events overnight. Patient states he had an episode of vomiting yesterday and an episode of diarrhea this morning. He is looking for something to control his diarrhea. Pertinent positives and negatives as discussed above, a complete review of systems was performed and all other systems are negative. Vitals: Signs Reviewed Physical Exam: General: nontoxic, no distress, appears at stated age Derm: warm, dry, intact Head: atraumatic, normocephalic, symmetric Eyes: EOMI, anicteric sclera Mouth: no lip lesion, mucus membranes moist Cardiovascular: S1 S2 reg, no murmur, rubs, or gallops Lungs: CTA bilateral, no rhonchi, no rales, no accessory muscle use Abdominal: soft, non-tender to palpataion, no appreciable organomegaly Extremities: no gross muscle atrophy, no edema, no contractures Neuro: Alert, Oriented, CNII-XII grossly intact, gait normal Psych: well appearing, appropriate affect Data Received Today: Pertinent Labs: WBC 11.37, Hgb 12.2, MCV 86.1 sodium 132, BUN 13.7, creatinine 0.7, glucose range 80286 Imaging: N/A Assessment/Plan: Patient is a 74-year-old male with a PMH of pancreatic cancer s/p Whipple procedure, COPD (not in exacerbation), diabetes mellitus, hyperlipidemia, hypertension, thyroid disorder, history of B-cell leukemia presenting with vomiting. #. Intractable vomiting in setting of pancreatic cancer #. Mild acute hypovolemic hyponatremia, improving #. Dehydration, improving #. Diarrhea Sodium 128 => 132 Was given 2 L of normal saline by ED, half liter L by ED Continue with LR at 75 cc/hr Blood cultures pending Zofran 4 mg IVP q8hr PRN Continue home Reglan 5 mg p.o. every 6 hours C. difficile negative Imodium 2 mg p.o. 4 times daily as needed Oncology consulted #. Transaminitis Likely secondary to pancreatic cancer status post Whipple procedure CT abdomen/pelvis showing postsurgical changes, no bowel obstruction and or no new acute findings seen Continue to monitor with follow-up CMP #. Leukocytosis, improving 21.6 => 11.37 Patient afebrile, no signs of infection Likely reactive Follow-up CBC #. Hyperkalemia Hemolyzed, repeat BMP #. Type 2 diabetes Glucose 132 Insulin sliding scale SQ Accu-Cheks ACHS Hypoglycemic precautions Chronic: Pancreatic cancer status post Whipple procedure: Continue with Creon 2 cap PO AC-TID, ferrous sulfate 325 mg Thyroid disorder: Synthroid 50 mcg PO daily Hypertension: Lisinopril 10 mg PO daily GERD: Protonix 40 mg PO daily Anxiety/depression: Lexapro 10 mg PO daily F: LR at 75 cc/hr E: Replete as needed N: Consistent carbohydrate A: Independently ambulatory DVT prophylaxis: Lovenox 40 SQ [address]: Pending clinical course Anticipated discharge time: Pending clinical course Chioma Garcias MD PGY-1 IM Dictation was produced using [employer] software. please excuse any grammatical, word or spelling errors. I have seen and evaluated the patient today. Discussed with the resident and agree with the residents finding and plan as documented in the resident's note. Changes highlighted in blue font. Objective - Vital Signs Vital signs: Vital Signs Temp 98.1 F 03/19/24 02:00 Pulse 60 03/19/24 02:00 Resp 14 03/19/24 02:00 BP 110/55 03/19/24 02:00 Pulse Ox 96 03/19/24 02:00 FiO2 Intake & Output 03/18/24 03/19/24 03/19/24 18:59 06:59 18:59 Weight 58.06 kg Other: Voiding Method Toilet Urinal # Bowel Movements 2 - Labs CBC & Chem 7: 03/19/24 08:39 03/19/24 08:39 Labs: Abnormal Lab Results - Last 24 Hours (Table) 03/18/24 03/18/24 03/18/24 Range/Units 11:29 11:29 11:29 WBC 21.6 H (3.8-10.6) k/uL Plt Count 121 L (150-450) k/uL Neutrophils # 16.0 H (1.3-7.7) k/uL Lymphocytes # 4.9 H (1.0-4.8) k/uL Sodium 128 L (137-145) mmol/L Potassium 5.3 H (3.5-5.1) mmol/L Chloride 93 L (98-107) mmol/L BUN 22 H (9-20) mg/dL Creatinine 0.63 L (0.66-1.25) mg/dL Glucose 132 H (74-99) mg/dL Calcium (8.4-10.2) mg/dL AST 90 H (17-59) U/L ALT 88 H (4-49) U/L Alkaline Phosphatase 777 H (38-126) U/L Total Protein (6.3-8.2) g/dL Albumin (3.5-5.0) g/dL Lipase 14 L (23-300) U/L TSH 6.590 H (0.465-4.680) mIU/L Ur Specific [place] (1.001-1.035) Urine Ketones (Negative) 01/20/25 01/20/25 Range/Units 13:50 20:15 WBC (3.8-10.6) k/uL Plt Count (150-450) k/uL Neutrophils # (1.3-7.7) k/uL Lymphocytes # (1.0-4.8) k/uL Sodium 127 L (137-145) mmol/L Potassium (3.5-5.1) mmol/L Chloride 97 L (98-107) mmol/L BUN (9-20) mg/dL Creatinine 0.56 L (0.66-1.25) mg/dL Glucose 110 H (74-99) mg/dL Calcium 8.2 L (8.4-10.2) mg/dL AST 64 H (17-59) U/L ALT 65 H (4-49) U/L Alkaline Phosphatase 586 H (38-126) U/L Total Protein 5.3 L (6.3-8.2) g/dL Albumin 2.9 L (3.5-5.0) g/dL Lipase (23-300) U/L TSH (0.465-4.680) mIU/L Ur Specific [place] 1.050 H (1.001-1.035) Urine Ketones Trace H (Negative)
[2024-03-19] MEDS: LOPERAMIDE 2 MG CAP PO PRN ×2 (13:09→20:25)
[2024-03-19 13:48] LABS: Basophils # (M) 0 X 10*3/uL (0.00-0.10); Eosinophils # (M) 0.11 X 10*3/uL (0.04-0.35); Lymphocytes # (M) 6.37 X 10*3/uL (0.90-5.00); Monocytes # (M) 0.11 X 10*3/uL (0.20-1.00); Neutrophils # (M) 4.78 X 10*3/uL (1.80-7.70); Neutrophils % (M) 42 %; RBC Morphology Normal (Normal); Smudge Cells Present (Absent)
[2024-03-19 17:24] LABS: Glucose,Whole Blood 106 mg/dL (70-110)
[2024-03-19 20:43] LABS: Glucose,Whole Blood 118 mg/dL (70-110)
[2024-03-20 05:35] LABS: African American GFR (CKD) >90 (>60 ml/min/1.73 sqM); Anion Gap 4 mmol/L; Blood Urea Nitrogen 8 mg/dL (9-20); Calcium 8.4 mg/dL (8.4-10.2); Carbon Dioxide 27 mmol/L (22-30); Chloride 97 mmol/L (98-107); Glucose 97 mg/dL (74-99); Magnesium 1.8 mg/dL (1.6-2.3); Non-African American GFR(CKD) >90 (>60 ml/min/1.73 sqM); Sodium 128 mmol/L (137-145)
[2024-03-20 05:45] LABS: HCT 32.8 % (39.0-53.0); HGB 10.8 gm/dL (13.0-17.5); MCH 28.4 pg (25.0-35.0); MCHC 32.9 g/dL (31.0-37.0); MCV 86.4 fL (80.0-100.0); Mean Platelet Volume 10.1; RBC 3.79 m/uL (4.30-5.90); RDW 14.7 % (11.5-15.5); WBC 7.4 k/uL (3.8-10.6)
[2024-03-20 06:08] LABS: Platelet Count 78 k/uL (150-450)
[2024-03-20 07:17] LABS: Eosinophils # (M) 0.15 k/uL (0-0.7); Lymphocytes # (M) 5.33 k/uL (1.0-4.8); Monocytes # (M) 0.15 k/uL (0-1.0); Neutrophils # (M) 1.78 k/uL (1.3-7.7); Neutrophils % (M) 24 %; Nucleated Red Blood Cells 0 /100 WBC (0-0); Total Cells Counted 100
[2024-03-20 07:18] LABS: Anisocytosis (M) Present
[2024-03-20 07:22] LABS: Glucose,Whole Blood 92 mg/dL (70-110)
[2024-03-20 07:44] VITALS: BP 146/68; PULSE 62; RESP 16; TEMP 98.2
--- NOTE | 2024-03-20 11:50 | P.PN ---
Subjective Progress Note Date: 03/20/24 Discharge Diagnosis: Intractable vomiting Mild acute hypovolemic hyponatremia Dehydration Diarrhea Normocytic anemia likely of chronic disease Transaminitis Leukocytosis Type 2 diabetes Status post multiple procedures Thyroid disorder Hypertension GERD Anxiety depression Hospital course: Patient is a 74-year-old male with a of pancreatic cancer s/p Whipple procedure (12/29/2023 at [facility]) currently on chemotherapy infusion (last session on 03/12), COPD (not in exacerbation), diabetes mellitus, hyperlipidemia, hypertension, thyroid disorder, history of B-cell leukemia presenting with vomiting. Patient states that vomiting started yesterday. He describes the vomit as green in color, but denies any blood. He has vomited twice yesterday and twice this morning, and once while in the ED. He states that he usually vomits after his chemotherapy but never as bad as this. Patient denies any abdominal pain, fever, chills, chest pain, shortness of breath, urinary symptoms, diarrhea, constipation. CT abdomen/pelvis showing postsurgical changes, no bowel bookshelves and or no new acute findings seen WBC 21.6, platelet 121, sodium 128, potassium 5.3, AST 90, ALT 88, alk phos 1777 chloride 93, BUN 22, follow-up with 63 UA showing trace ketones Cepheid negative T 97.9 F, PR91, RR 20, BP 88/60, O2 sat 96% on room air ED documentation reviewed. Patient to be admitted to internal medicine service for evaluation of intractable vomiting. Oncology was consulted. While admitted patient was given proper treatment for his nausea and vomiting. Was given fluids for his hyponatremia. While here patient reported with complaint of diarrhea. C. difficile culture were negative. Was given Imodium for the diarrhea. The course of his stay his vomiting subsided, but states he was decreased appetite. He is being discharged with Zofran. Follow-up BMP in 3 days to monitor sodium and kidney function. He is to follow-up with his PCP and oncology. Patient be discharged home. Vital signs reviewed and stable. Physical examination: Vital signs reviewed General: non toxic, no distress, appears at stated age, normal weight Derm: no unusual rashes/lesions, warm Head: atraumatic, normocephalic, symmetric Eyes: EOMI, anicteric sclera, pupils equal round reactive to light ENT: Nose and ears atraumatic Neck: No cervical lymphadenopathy, trachea midline, supple Mouth: no lip lesion, mucus membranes moist Cardiovascular: S1S2 reg, no murmur, positive dorsalis pedis pulse bilateral, no edema Lungs: CTA bilateral, no rhonchi, no rales, no accessory muscle use Abdominal: soft, nontender to palpation, no guarding Ext: muscle strength 5 out of 5 in all 4 extremities grossly, no gross muscle atrophy Neuro: CN II-XI grossly intact, no gross focal neuro deficits Psych: Alert, oriented to person, place, and time A total of greater than 30 minutes of time were spent preparing this complex discharge summary. Patient was discharge on March 20, 2024 at 9:41 AM. Chioma Garcias MD PGY-1 IM Dictation was produced using [employer] dictation software. please excuse any grammatical, word or spelling errors. I have seen and evaluated the patient today. Discussed with the resident and agree with the residents finding and plan as documented in the resident's note. Changes highlighted in blue font. Objective - Vital Signs Vital signs: Vital Signs Temp 98.2 F 03/20/24 07:18 Pulse 62 03/20/24 07:18 Resp 16 03/20/24 07:18 BP 146/68 03/20/24 07:18 Pulse Ox 95 03/20/24 07:18 FiO2 Intake & Output 03/19/24 03/20/24 03/20/24 18:59 06:59 18:59 Intake Total 660 540 Balance 660 540 Weight 58.06 kg Intake: Oral 660 540 Other: Voiding Method Toilet Urinal # Voids 2 2 # Bowel Movements 3 1 1 - Labs CBC & Chem 7: 03/20/24 04:42 03/20/24 04:42 Labs: Abnormal Lab Results - Last 24 Hours (Table) 03/19/24 03/19/24 03/19/24 Range/Units 08:39 12:00 20:42 RBC (4.30-5.90) m/uL Hgb (13.0-17.5) gm/dL Hct (39.0-53.0) % Plt Count (150-450) k/uL Lymphocytes # (Manual) 6.37 H (0.90-5.00) X 10*3/uL Monocytes # (Manual) 0.11 L (0.20-1.00) X 10*3/uL Smudge Cells Present A (Absent) Sodium (137-145) mmol/L Chloride (98-107) mmol/L BUN (9-20) mg/dL Creatinine (0.66-1.25) mg/dL POC Glucose (mg/dL) 114 H 118 H (70-110) mg/dL 03/20/24 03/20/24 Range/Units 04:42 04:42 RBC 3.79 L (4.30-5.90) m/uL Hgb 10.8 L (13.0-17.5) gm/dL Hct 32.8 L (39.0-53.0) % Plt Count 78 L (150-450) k/uL Lymphocytes # (Manual) 5.33 H (0.90-5.00) X 10*3/uL Monocytes # (Manual) (0.20-1.00) X 10*3/uL Smudge Cells (Absent) Sodium 128 L (137-145) mmol/L Chloride 97 L (98-107) mmol/L BUN 8 L (9-20) mg/dL Creatinine 0.48 L (0.66-1.25) mg/dL POC Glucose (mg/dL) (70-110) mg/dL Microbiology - Last 24 Hours (Table) 03/18/24 14:35 Blood Culture - Preliminary Blood
--- NOTE | 2024-03-21 22:35 | P.CONS ---
History of Present Illness - Reason for Consult Consult date: 03/19/24 pancreatic adenocarcinoma Requesting physician: Chioma Garcias - Chief Complaint N,V,D - History of Present Illness Mr Paz is a pleasant male pt of Dr. 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 Lost to f/u, unfortunately referred back 12/18 for new diagnosis of pancreatic adenocarcinoma. Patient was evaluated by surgery, he had 6 neoadjuvant treatments, surgery, and is now on his second of 6 adjuvant FOLFIRINOX treatments. He received G-CSF 03/16 He is admitted with c/o diarrhea starting the day he received his booster shot. He reports taking 2 Imodium. C. difficile is negative. He denies any fevers, chills, no abdominal pain or cramping, no bleeding. He is concerned about his overall wt loss and poor appetite. 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 "Gets shots in eyes due to Diabetes." History of Any Multi-Drug Resistant Organisms: None Reported Past Surgical History: Joint Replacement Additional Past Surgical History / Comment(s): Right hip replacement, aortic aneurysm repaired, biliary stent placement with revision,. Whipple procedure at [facility] on 12/29/23 for pancreatic cancer Past Anesthesia/Blood Transfusion Reactions: No Reported Reaction Past Psychological History: No Psychological Hx Reported Smoking Status: Former smoker Past Alcohol Use History: Rare Additional Past Alcohol Use History / Comment(s): Quit smoking over 20 yrs ago. Past Drug Use History: None Reported - Past Family History Father Family Medical History: Cancer Medications and Allergies Home Medications Medication Instructions Recorded Confirmed Type Ferrous Sulfate [Iron (65 MG 325 mg PO DAILY 10/06/21 03/18/24 History Elemental)] Levothyroxine Sodium [Synthroid] 50 mcg PO DAILY 06/19/23 03/18/24 History Escitalopram [Lexapro] 10 mg PO DAILY 12/11/23 03/18/24 History Aspirin EC [Ecotrin Low Dose] 81 mg PO DAILY 01/18/24 03/18/24 History Lipase/Protease/Amylase [Sky Pimentel 1 cap PO QID PRN 01/18/24 03/18/24 History 24,000 Unit Capsule] Lipase/Protease/Amylase [Sky Pimentel 2 cap PO TID-W/MEALS 01/18/24 03/18/24 History 24,000 Unit Capsule] Metoclopramide [Reglan] 5 mg PO Q6H 01/18/24 03/18/24 History Naloxone HCl [Narcan] 4 mg NASAL DIRECTED PRN 01/18/24 03/18/24 History Pantoprazole [Protonix] 40 mg PO DAILY 01/18/24 03/18/24 History lisinopriL [Zestril] 10 mg PO DAILY 01/18/24 03/18/24 History methocarbamoL [Robaxin-750] 750 mg PO Q6H PRN 01/18/24 03/18/24 History Ondansetron [Zofran] 4 mg PO Q8HR PRN #90 tab 03/20/24 Rx Allergies Allergy/AdvReac Type Severity Reaction Status Date / Time codeine AdvReac Nausea & Verified 03/18/24 13:56 Vomiting Physical Exam Vitals: Vital Signs Temp Pulse Pulse Resp BP BP Pulse Ox 03/19/24 13:25 97.6 F 58 L 16 119/70 99 03/19/24 07:50 97.6 F 60 16 122/71 97 03/19/24 02:00 98.1 F 60 14 110/55 96 03/18/24 23:00 97.6 F 65 16 122/61 97 03/18/24 18:57 97.9 F 62 18 142/84 95 Intake and Output 03/19/24 03/19/24 03/19/24 06:59 14:59 22:59 Other: Voiding Method Toilet Urinal # Bowel Movements 2 1 Weight 58.06 kg - Constitutional General appearance: cooperative, no acute distress, thin - EENT Eyes: anicteric sclerae, EOMI ENT: hearing grossly normal, normal oropharynx - Neck Neck: no lymphadenopathy - Respiratory Respiratory: bilateral: CTA - Cardiovascular Rhythm: regular Heart sounds: normal: S1, S2 Abnormal Heart Sounds: no systolic murmur, no diastolic murmur, no rub, no S3 Gallop, no S4 Gallop, no click, no other leg Peripheral Edema: bilateral: None - Gastrointestinal General gastrointestinal: no absent bowel sounds, no decreased bowel sounds, no distended, no hepatomegaly, no hyperactive bowel sounds, normal bowel sounds, no organomegaly, no rigid, no scaphoid, soft, no splenomegaly, no tenderness, no umbilical hernia, no ventral hernia - Integumentary Integumentary: normal - Neurologic Neurologic: CNII-XII intact - Musculoskeletal Musculoskeletal: generalized weakness, strength equal bilaterally - Psychiatric Psychiatric: A&O x's 3, appropriate affect, intact judgment & insight Results CBC & Chem 7: 03/20/24 04:42 03/20/24 04:42 Labs: Abnormal Lab Results - Last 24 Hours (Table) 03/18/24 03/18/24 03/19/24 Range/Units 11:29 20:15 08:39 WBC 11.37 H (4.50-10.00) X 10*3/uL Hgb 12.2 L (13.0-17.0) g/dL Hct 38.4 L (39.6-50.0) % MCHC 31.8 L (32.0-37.0) g/dL RDW 14.8 H (11.5-14.5) % Plt Count 106 L (140-440) X 10*3/uL MPV 12.3 H (9.5-12.2) FL Lymphocytes # (Manual) 6.37 H (0.90-5.00) X 10*3/uL Monocytes # (Manual) 0.11 L (0.20-1.00) X 10*3/uL NRBC/100 WBC Diff 0.02 H (0.00-0.01) X 10*3/uL Smudge Cells Present A (Absent) Sodium 127 L (137-145) mmol/L Chloride 97 L (98-107) mmol/L Creatinine 0.56 L (0.66-1.25) mg/dL Glucose 110 H (74-99) mg/dL POC Glucose (mg/dL) (70-110) mg/dL Calcium 8.2 L (8.4-10.2) mg/dL AST 64 H (17-59) U/L ALT 65 H (4-49) U/L Alkaline Phosphatase 586 H (38-126) U/L Total Protein 5.3 L (6.3-8.2) g/dL Albumin 2.9 L (3.5-5.0) g/dL TSH 6.590 H (0.465-4.680) mIU/L 03/19/24 03/19/24 Range/Units 08:39 12:00 WBC (4.50-10.00) X 10*3/uL Hgb (13.0-17.0) g/dL Hct (39.6-50.0) % MCHC (32.0-37.0) g/dL RDW (11.5-14.5) % Plt Count (140-440) X 10*3/uL MPV (9.5-12.2) FL Lymphocytes # (Manual) (0.90-5.00) X 10*3/uL Monocytes # (Manual) (0.20-1.00) X 10*3/uL NRBC/100 WBC Diff (0.00-0.01) X 10*3/uL Smudge Cells (Absent) Sodium 132 L (137-145) mmol/L Chloride (98-107) mmol/L Creatinine (0.66-1.25) mg/dL Glucose (74-99) mg/dL POC Glucose (mg/dL) 114 H (70-110) mg/dL Calcium 8.6 L (8.4-10.2) mg/dL AST 75 H (17-59) U/L ALT 69 H (4-49) U/L Alkaline Phosphatase 728 H (38-126) U/L Total Protein 5.8 L (6.3-8.2) g/dL Albumin 3.6 L (3.5-5.0) g/dL TSH (0.465-4.680) mIU/L CT scan - abdomen: report reviewed CT scan - pelvis: report reviewed Assessment and Plan (1) Nausea vomiting and diarrhea Status: Acute Priority: High Code(s): R11.2 - NAUSEA WITH VOMITING, UNSPECIFIED; R19.7 - DIARRHEA, UNSPECIFIED SNOMED Code(s): 1508224 (2) Pancreatic adenocarcinoma Status: Acute Priority: Medium Code(s): C25.9 - MALIGNANT NEOPLASM OF PANCREAS, UNSPECIFIED SNOMED Code(s): 117019243 (3) CLL (chronic lymphocytic leukemia) Status: Chronic Priority: Low Code(s): C91.10 - CHRONIC LYMPHOCYTIC LEUK OF B-CELL TYPE NOT ACHIEVE REMIS SNOMED Code(s): 21930477 Plan: Nausea, vomiting, diarrhea -C. difficile is negative -Patient has been receiving supportive medications and his symptoms have improved fairly quickly. -Patient has received hydration -Patient was encouraged to use his pancreatic enzymes with meals to improve digestion. Pancreatic carcinoma -Diagnosis and treatment as described in HPI. -Discussed with patient the possibilities of dose reduction for symptoms but, patient was encouraged to treat symptoms more aggressively. CLL -Patient is on observation for the same
== END 2024-03-20 11:15 | disposition home or self-care (01) ==
LOC: EC 10:21 → 5NMEDONC 15:15
PROVIDERS: ADMIT Student in an Organized Health Care Education/Training Program; ATTEND Student in an Organized Health Care Education/Training Program
DX: E86.0 Dehydration (principal); C25.9 Malignant neoplasm of pancreas, unspecified; R19.7 Diarrhea, unspecified; T45.8X5A Adverse effect of other primarily systemic and hematological agents, initial encounter; E11.9 Type 2 diabetes mellitus without complications; C91.10 Chronic lymphocytic leukemia of B-cell type not having achieved remission; I95.9 Hypotension, unspecified; E78.5 Hyperlipidemia, unspecified; I10 Essential (primary) hypertension; E07.9 Disorder of thyroid, unspecified; E86.1 Hypovolemia; E87.1 Hypo-osmolality and hyponatremia; R74.01 Elevation of levels of liver transaminase levels; E87.5 Hyperkalemia; K21.9 Gastro-esophageal reflux disease without esophagitis; J44.9 Chronic obstructive pulmonary disease, unspecified; D64.9 Anemia, unspecified; F41.9 Anxiety disorder, unspecified; F32.A Depression, unspecified; Z79.890 Hormone replacement therapy; Z79.82 Long term (current) use of aspirin; Z79.4 Long term (current) use of insulin; Z79.899 Other long term (current) drug therapy; Z88.5 Allergy status to narcotic agent; Z11.52 Encounter for screening for COVID-19; Z11.59 Encounter for screening for other viral diseases; Z87.891 Personal history of nicotine dependence; Z98.890 Other specified postprocedural states
CPT/HCPCS: 96361 ×4; 96372 ×3; 96374; 99285; 36415; 84439; 80053 ×2; 80048; 84443; 82150; 83690; 83735 ×2; 85025 ×3; 81003; 87040; 87324; 87636; 74177; G0378 ×3; J2405; J1650 ×3; Q9967

== ENCOUNTER 2024-03-22 13:03 | Emergency (ER) | payer OTHER, MEDICARE ==
[2024-03-22 13:16] VITALS: TEMP 98.4
--- NOTE | 2024-03-22 13:54 | ED ---
General Adult HPI - General Chief complaint: Recheck/Abnormal Lab/Rx Stated complaint: Irreg BP Time Seen by Provider: 03/22/24 13:19 Source: patient, family, RN notes reviewed, old records reviewed Mode of arrival: ambulatory Limitations: no limitations - History of Present Illness Initial comments: 74-year-old male presenting with low blood pressure. Patient had taken his blood pressure yesterday evening after a diarrheal episode. This was low. He subsequently had vomiting and blood pressure remained low this morning. He did take his antihypertensive medication this morning. Patient himself has no specific complaint at this time. He is currently being treated for pancreatic cancer and is on chemotherapy. No reported fever. There is poor appetite and nausea vomiting diarrhea over the past 24 hours. - Related Data Home Medications Medication Instructions Recorded Confirmed Ferrous Sulfate [Iron (65 MG 325 mg PO DAILY 10/06/21 03/18/24 Elemental)] Levothyroxine Sodium [Synthroid] 50 mcg PO DAILY 06/19/23 03/18/24 Escitalopram [Lexapro] 10 mg PO DAILY 12/11/23 03/18/24 Aspirin EC [Ecotrin Low Dose] 81 mg PO DAILY 01/18/24 03/18/24 Lipase/Protease/Amylase [Sky Pimentel 1 cap PO QID PRN 01/18/24 03/18/24 24,000 Unit Capsule] Lipase/Protease/Amylase [Sky Pimentel 2 cap PO TID-W/MEALS 01/18/24 03/18/24 24,000 Unit Capsule] Metoclopramide [Reglan] 5 mg PO Q6H 01/18/24 03/18/24 Naloxone HCl [Narcan] 4 mg NASAL DIRECTED PRN 01/18/24 03/18/24 Pantoprazole [Protonix] 40 mg PO DAILY 01/18/24 03/18/24 lisinopriL [Zestril] 10 mg PO DAILY 01/18/24 03/18/24 methocarbamoL [Robaxin-750] 750 mg PO Q6H PRN 01/18/24 03/18/24 Previous Rx's Medication Instructions Recorded Ondansetron [Zofran] 4 mg PO Q8HR PRN #90 tab 03/20/24 Allergies Allergy/AdvReac Type Severity Reaction Status Date / Time codeine AdvReac Nausea & Verified 03/22/24 13:10 Vomiting Review of Systems ROS Statement: Those systems with pertinent positive or pertinent negative responses have been documented in the HPI. ROS Other: All systems not noted in ROS Statement are negative. 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 "Gets shots in eyes due to Diabetes." History of Any Multi-Drug Resistant Organisms: None Reported Past Surgical History: Joint Replacement Additional Past Surgical History / Comment(s): Right hip replacement, aortic aneurysm repaired, biliary stent placement with revision,. Whipple procedure at [facility] on 12/29/23 for pancreatic cancer Past Anesthesia/Blood Transfusion Reactions: No Reported Reaction Past Psychological History: No Psychological Hx Reported Smoking Status: Former smoker Past Alcohol Use History: Rare Past Drug Use History: None Reported - Past Family History Father Family Medical History: Cancer General Exam Limitations: no limitations General appearance: alert, in no apparent distress Head exam: Present: atraumatic, normocephalic Eye exam: Present: normal appearance, PERRL ENT exam: Present: mucous membranes dry Neck exam: Present: normal inspection. Absent: tenderness, meningismus Respiratory exam: Present: normal lung sounds bilaterally. Absent: respiratory distress, wheezes Cardiovascular Exam: Present: regular rate, normal rhythm GI/Abdominal exam: Present: soft. Absent: distended, tenderness, guarding Extremities exam: Present: normal inspection Neurological exam: Present: alert, oriented X3, CN II-XII intact. Absent: motor sensory deficit Skin exam: Present: warm, pallor Course Vital Signs 03/22/24 03/22/24 13:10 14:06 Temperature 98.4 F Pulse Rate 89 68 Respiratory 18 17 Rate Blood Pressure 93/67 107/70 O2 Sat by Pulse 97 99 Oximetry Medical Decision Making - Medical Decision Making Was pt. sent in by a medical professional or institution (, MARK, CHIEF PORT DIRECTOR, urgent care, hospital, or long term...) When possible be specific @ -No Did you speak to anyone other than the patient for history (EMS, parent, family, police, friend...)? What history was obtained from this source @ -No Did you review nursing and triage notes (agree or disagree)? Why? @ -I reviewed and agree with nursing and triage notes Were old charts reviewed (outside hosp., previous admission, EMS record, old EKG, old radiological studies, urgent care reports/EKG's, long term records)? Report findings @ -No old charts were reviewed Differential Weakness: Hypoglycemia, shock, sepsis, hyponatremia, anemia, infection, PA, ETOH, adverse medicine reaction, overdose, stroke, this is not meant to be an all-inclusive list. EKG interpreted by me (3pts min.). @ -Sinus rhythm rate of 76, AL interval 208, QRS duration 102, QTc [address] segment elevation. X-rays interpreted by me (1pt min.). @ -None done CT interpreted by me (1pt min.). @ -None done U/S interpreted by me (1pt. min.). @ -None done What testing was considered but not performed or refused? (CT, X-rays, U/S, labs)? Why? @ -None What meds were considered but not given or refused? Why? @ -None Did you discuss the management of the patient with other professionals (professionals i.e. , PA, CHIEF PORT DIRECTOR, lab, RT, psych nurse, public health social worker, organ builder, teacher, corporate trust officer, case folder)? Give summary @ -No Was smoking cessation discussed for >3mins.? @ -No Was critical care preformed (if so, how long)? @ -No Were there social determinants of health that impacted care today? How? (Homelessness, low income, unemployed, alcoholism, drug addiction, transportation, low edu. Level, literacy, decrease access to med. care, shelter, rehab)? @ -No Was there de-escalation of care discussed even if they declined (Discuss DNR or withdrawal of care, Hospice)? DNR status @ -No What co-morbidities impacted this encounter? (DM, HTN, Smoking, COPD, CAD, Cancer, CVA, ARF, Chemo, Hep., AIDS, mental health diagnosis, sleep apnea, morbid obesity)? @. Pancreatic cancer Was patient admitted / discharged? Hospital course, mention meds given and route, prescriptions, significant lab abnormalities, going to OR and other pertinent info. @ -74 74-year-old male with low blood pressure. Patient did take his lisinopril this morning. After fluid blood pressure improves and the patient is feeling better. He has normal CBC, normal CMP. He was not able to give a urine test but has no urinary symptoms. Patient is feeling better and eager for discharge. Family agreeable. Return parameters discussed. Undiagnosed new problem with uncertain prognosis? @ -No Drug Therapy requiring intensive monitoring for toxicity (Heparin, Nitro, Insulin, Cardizem)? @ -No Were any procedures done? @ -No Diagnosis/symptom? @Dehydration, hypotension resolved Acute, or Chronic, or Acute on Chronic? @ -acute Uncomplicated (without systemic symptoms) or Complicated (systemic symptoms)? @ -Default Side effects of treatment? @ -No Exacerbation, Progression, or Severe Exacerbation? @ -No Poses a threat to life or bodily function? How? (Chest pain, USA, PA, pneumonia, PE, COPD, DKA, ARF, appy, cholecystitis, CVA, Diverticulitis, Homicidal, Suicidal, threat to staff... and all critical care pts) @ -Yes, moderate risk, pancreatic cancer, poor nutrition - Lab Data Result diagrams: 03/22/24 13:43 03/22/24 13:43 Lab Results 03/22/24 03/22/24 03/22/24 Range/Units 13:43 13:43 13:43 WBC 7.5 (3.8-10.6) k/uL RBC 4.63 (4.30-5.90) m/uL Hgb 12.9 L (13.0-17.5) gm/dL Hct 39.5 (39.0-53.0) % MCV 85.3 (80.0-100.0) fL MCH 27.9 (25.0-35.0) pg MCHC 32.8 (31.0-37.0) g/dL RDW 14.7 (11.5-15.5) % Plt Count 105 L (150-450) k/uL MPV 11.2 Sodium 129 L (137-145) mmol/L Potassium 4.2 (3.5-5.1) mmol/L Chloride 95 L (98-107) mmol/L Carbon Dioxide 24 (22-30) mmol/L Anion Gap 10 mmol/L BUN 13 (9-20) mg/dL Creatinine 0.80 (0.66-1.25) mg/dL Est GFR (CKD-EPI)AfAm >90 (>60 ml/min/1.73 sqM) Est GFR (CKD-EPI)NonAf 88 (>60 ml/min/1.73 sqM) Glucose 128 H (74-99) mg/dL Plasma Lactic Acid Lionel 1.4 (0.7-2.0) mmol/L Calcium 9.0 (8.4-10.2) mg/dL Magnesium 1.7 (1.6-2.3) mg/dL Total Bilirubin 0.6 (0.2-1.3) mg/dL AST 44 (17-59) U/L ALT 51 H (4-49) U/L Alkaline Phosphatase 570 H (38-126) U/L Total Protein 6.2 L (6.3-8.2) g/dL Albumin 3.6 (3.5-5.0) g/dL Influenza Type A (PCR) (Not Detectd) Influenza Type B (PCR) (Not Detectd) RSV (PCR) (Not Detectd) SARS-CoV-2 (PCR) (Not Detectd) 03/22/24 Range/Units 13:46 WBC (3.8-10.6) k/uL RBC (4.30-5.90) m/uL Hgb (13.0-17.5) gm/dL Hct (39.0-53.0) % MCV (80.0-100.0) fL MCH (25.0-35.0) pg MCHC (31.0-37.0) g/dL RDW (11.5-15.5) % Plt Count (150-450) k/uL MPV Sodium (137-145) mmol/L Potassium (3.5-5.1) mmol/L Chloride (98-107) mmol/L Carbon Dioxide (22-30) mmol/L Anion Gap mmol/L BUN (9-20) mg/dL Creatinine (0.66-1.25) mg/dL Est GFR (CKD-EPI)AfAm (>60 ml/min/1.73 sqM) Est GFR (CKD-EPI)NonAf (>60 ml/min/1.73 sqM) Glucose (74-99) mg/dL Plasma Lactic Acid Lionel (0.7-2.0) mmol/L Calcium (8.4-10.2) mg/dL Magnesium (1.6-2.3) mg/dL Total Bilirubin (0.2-1.3) mg/dL AST (17-59) U/L ALT (4-49) U/L Alkaline Phosphatase (38-126) U/L Total Protein (6.3-8.2) g/dL Albumin (3.5-5.0) g/dL Influenza Type A (PCR) Not Detected (Not Detectd) Influenza Type B (PCR) Not Detected (Not Detectd) RSV (PCR) Not Detected (Not Detectd) SARS-CoV-2 (PCR) Not Detected (Not Detectd) Disposition Clinical Impression: Dehydration, Pancreatic adenocarcinoma Disposition: HOME SELF-CARE Condition: Fair Instructions (If sedation given, give patient instructions): Dehydration (ED) Is patient prescribed a controlled substance at d/c from ED?: No Referrals: Aryan Edgar DO [Primary Care Provider] - 1-2 days Time of Disposition: 15:57
[2024-03-22 14:14] VITALS: RESP 17
[2024-03-22] MEDS: SODIUM CHLORIDE 0.9% 1,000 ML IV STA (14:16)
[2024-03-22 14:45] LABS: ALT 51 U/L (4-49); AST 44 U/L (17-59); African American GFR (CKD) >90 (>60 ml/min/1.73 sqM); Albumin 3.6 g/dL (3.5-5.0); Alkaline Phosphatase 570 U/L (38-126); Anion Gap 10 mmol/L; Blood Urea Nitrogen 13 mg/dL (9-20); Carbon Dioxide 24 mmol/L (22-30); Chloride 95 mmol/L (98-107); Glucose 128 mg/dL (74-99); Magnesium 1.7 mg/dL (1.6-2.3); Non-African American GFR(CKD) 88 (>60 ml/min/1.73 sqM); Potassium 4.2 mmol/L (3.5-5.1); Sodium 129 mmol/L (137-145); Total Bilirubin 0.6 mg/dL (0.2-1.3); Total Protein 6.2 g/dL (6.3-8.2)
[2024-03-22 14:57] LABS: Influenza A Not Detected (Not Detectd); Influenza B Not Detected (Not Detectd); RSV Not Detected (Not Detectd)
[2024-03-22 15:33] LABS: HCT 39.5 % (39.0-53.0); HGB 12.9 gm/dL (13.0-17.5); MCH 27.9 pg (25.0-35.0); MCHC 32.8 g/dL (31.0-37.0); MCV 85.3 fL (80.0-100.0); Mean Platelet Volume 11.2; Platelet Count 105 k/uL (150-450); RBC 4.63 m/uL (4.30-5.90); RDW 14.7 % (11.5-15.5); WBC 7.5 k/uL (3.8-10.6)
[2024-03-22 16:20] VITALS: BP 126/61; PULSE 61
[2024-03-22 16:52] LABS: Band Neutrophils % 2 %; Lymphocytes # (M) 6.38 k/uL (1.0-4.8); Neutrophils % (M) 9 %; Nucleated Red Blood Cells 0 /100 WBC (0-0); Total Cells Counted 100
== END 2024-03-22 16:30 | disposition home or self-care (01) ==
LOC: EC 13:03
DX: C25.9 Malignant neoplasm of pancreas, unspecified (principal); E86.0 Dehydration; Z87.891 Personal history of nicotine dependence; Z88.5 Allergy status to narcotic agent; Z11.52 Encounter for screening for COVID-19
CPT/HCPCS: 36415; 80053; 83605; 83735; 85025; 87636; 93005; 96360; 99285

== ENCOUNTER 2024-04-12 05:51 | Day surgery (SDC) | payer MEDICARE, OTHER ==
[~2024-04-12 05:51] MED LIST changes: -HYDROmorphone 0.5 MG/0.5 ML SYRINGE IVP PRN; -LIDOCAINE 1% (10MG/ML) FOR IV START INTRADERMA PRN; -MIDAZOLAM 2 MG/2 ML VIAL IV PRN; -Pre Op ABX Message 1 EACH MISC MISCELLANE ONE; +SODIUM CHLORIDE 0.9% 500 ML 500 ML IV SCH
[2024-04-12 06:49] VITALS: RESP 16; TEMP 98
[2024-04-12] MEDS: IOPAMIDOL-370 100ML BTL INJ ONE (07:53)
[2024-04-12 08:19] VITALS: BP 158/78; PULSE 64
--- NOTE | 2024-04-12 08:20 | IR ---
Fluoroscopy INDICATION: Pain FINDINGS: Fluoroscopy time: 12 seconds. Total dose area product (DAP) in uGy*m?, mGy*cm? (or similar): 0.1 Images obtained: 58. FINDINGS: Images document catheter placement IMPRESSION: 1. Documentation of fluoroscopy. [facility], , 04/12/2024 8:18 AM
--- NOTE | 2024-04-12 08:35 | P.OP ---
Date of Procedure: 04/12/24 Preoperative Diagnosis: Malfunctioning Mediport, pancreatic cancer Postoperative Diagnosis: Same Procedure(s) Performed: Portogram Surgeon: Mesfin Woodson Pathology: none sent Condition: stable Disposition: PACU Operative Findings: Mediport appears to be in good position without any kinks. Flow is normal through the Mediport without any extravasation. Description of Procedure: After written and informed consent was obtained the patient and all risk, benefits and complications were described the patient was brought to the Air Tank Assembler and laid in the supine position. The area of the chest was prepped and draped in usual sterile fashion. The Mediport was then accessed with a Orellana needle and venogram was obtained demonstrating good brisk flow to the heart without any abnormalities or extravasation. Needle was then removed area was cleansed and dressing placed. Patient tolerated procedure well.
== END 2024-04-12 08:15 | disposition home or self-care (01) ==
LOC: CATHCVL 05:51
PROVIDERS: ATTEND Surgery
DX: C25.9 Malignant neoplasm of pancreas, unspecified (principal); D72.820 Lymphocytosis (symptomatic); I10 Essential (primary) hypertension; E78.5 Hyperlipidemia, unspecified; E11.9 Type 2 diabetes mellitus without complications; Z79.890 Hormone replacement therapy; Z79.82 Long term (current) use of aspirin; Z79.899 Other long term (current) drug therapy
CPT/HCPCS: 36598; J1642; Q9967

== ENCOUNTER 2024-09-25 05:55 | Day surgery (SDC) | payer OTHER ==
[2024-09-25] MEDS ORDERED: LIDOCAINE 1% (10MG/ML) FOR IV START INTRADERMA PRN (05:56)
[2024-09-25] MEDS: IV FLUID CONTINUATION 1,000 ML IV ONE (06:36)
[2024-09-25 06:47] VITALS: TEMP 97.6
[2024-09-25] MEDS: DEXAMETHASONE SOD PHOSPHATE 4 MG/ML 1 ML VIAL IV ONE (06:59)
[2024-09-25] MEDS: LACTATED RINGERS 1,000 ML IV SCH (06:59)
[2024-09-25] MEDS: ACETAMINOPHEN TAB 500 MG TAB PO PRN (06:59)
[2024-09-25] MEDS: HEPARIN SODIUM,PORCINE 5,000 UNIT/ML 1 ML VIAL SQ PRN (06:59)
[2024-09-25] MEDS: ONDANSETRON 4 MG/2 ML VIAL IVP STA (07:00)
[2024-09-25] MEDS ORDERED: fentaNYL (PF) 50 MCG/ML 2 ML AMP IV PRN (07:00)
[2024-09-25] MEDS ORDERED: PROPOFOL 10 MG/ML 20 ML VIAL IV ONE (07:25)
[2024-09-25] MEDS ORDERED: MIDAZOLAM 2 MG/2 ML VIAL ONE (07:25)
[2024-09-25] MEDS ORDERED: ePHEDrine 50 MG/ML 1 ML VIAL ONE (07:25)
[2024-09-25] MEDS ORDERED: fentaNYL (PF) 50 MCG/ML 2 ML AMP ONE (07:25)
[2024-09-25] MEDS: LIDOCAINE 1%-EPI 1:100,000 20 ML VIAL SQ ONE ×2 (07:43→07:45)
--- NOTE | 2024-09-25 08:02 | P.OP ---
Date of Procedure: 09/25/24 Preoperative Diagnosis: History of pancreatic cancer Postoperative Diagnosis: History of pancreatic cancer Procedure(s) Performed: Removal of right subclavian Port-A-Cath Anesthesia: JAREN Surgeon: Ramon Coates Estimated Blood Loss (ml): 5 Pathology: none sent Condition: stable Disposition: PACU Description of Procedure: Patient was placed on the endoscopy table on the operative table in the supine position. He received IV sedation. The skin was prepped and draped over the port site. Using a 15 blade skin incised. Then using blunt sharp/electrocautery the Port-A-Cath was removed. The skin was closed interrupted 3-0 Monocryl suture. Dermabond was applied. Patient Toller procedure well. Sent to recovery in stable condition.
[2024-09-25 08:19] VITALS: BP 138/64; PULSE 64
[2024-09-25 08:32] VITALS: RESP 16
== END 2024-09-25 08:33 | disposition home or self-care (01) ==
LOC: OR 05:55
PROVIDERS: ATTEND Surgery
DX: Z45.2 Encounter for adjustment and management of vascular access device (principal); I10 Essential (primary) hypertension; E78.5 Hyperlipidemia, unspecified; J44.9 Chronic obstructive pulmonary disease, unspecified; E03.9 Hypothyroidism, unspecified; Z79.890 Hormone replacement therapy; Z79.899 Other long term (current) drug therapy; Z85.07 Personal history of malignant neoplasm of pancreas; Z85.6 Personal history of leukemia
CPT/HCPCS: 36590; J2250; J1644; J1100; J0690; J2405; J3010; J2704